=== PATIENT | female | born 1935 | race Caucasian/White ===

== ENCOUNTER 2017-02-10 02:33 | Emergency (ER) | payer MEDICARE ==
[~2017-02-10] VITALS: Ht 154.9 cm; Wt 80.7 kg
--- NOTE | ~2017-02-10 | EKG ---
[place], [place] ELECTROCARDIOGRAM REPORT NAME: SORAYA OLMEDO UNIT #: [id number] ROOM: DOCTOR: CAROLANN BOSS MD BIRTHDATE: [birth year] DOS: 02/10/2017 TIME: 0327 hours. FINDINGS: 1. Normal sinus rhythm with first-degree AV block. 2. 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 3. Abnormal EKG. CAROLANN BOSS MD CM:EKGRPT:ELECTROCARDIOGRAM REPORT 34 05 CAROLANN BOSS MD
[2017-02-10 02:33] VITALS: BP 199/87
[~2017-02-10 02:33] MED LIST: ALBUTEROL INH; ASPIRIN81 M1 PO; AVPAK AZITHROM250 M1 PO; BACTROBAN CREAM15 GM T; CALCIUM PO; CEPHALEXIN500 M1 PO; CIPRO500 MG PO; COZAAR25 MG PO; COZAAR50 M1 PO; CRESTOR10 MG PO; CYMBALTA20 MG PO; CYMBALTA30 MG PO; CYMBALTA60 MG PO; DELTASONE5 MG PO; DOC-Q-LACE100 MG PO; Eliquis PO; FENOFIBRATE160 MG PO; FERROUS SULFAT324 M2 PO; FLEXERIL10 MG PO; FLEXERIL5 MG PO; HYDROCODONE BIT1 T11 PO; JANUVIA100 MG PO; LASIX20 MG PO; LEVAQUIN250 M1 PO; LOPID600 MG PO; Lopressor25 MG PO; METFORMIN500 MG PO; MICRO-K 1010 MEQ PO; MIRALAX POWDER17 G1 PO; MUCINEX600 MG PO; NORVASC5 MG PO; NOVAPLUS V0.09 MG/Ac INH; OCUVITE1 TA1 PO; OXYGEN NAS; PERCOCET 325 MG1 TA2 PO; PRAVACHOL40 MG PO; PREDNISONE50 MG PO; PRESERVISION AR1 SGL PO; PRESERVISION1 SGL PO; PREVACID30 M1 PO; PRILOSEC20 MG PO; SYNTHROID,LEVO75 MCG PO; SYNTHROID0.05 MG PO; TORADOL10 MG PO; VENTOLIN 02.5 MG/3 M INH; VIBRAMYCIN100 MG PO; VITAMIN D32000 IU PO; Z BEC PO; ZESTRIL,PRINIVI10 MG PO; [UNRECOGNIZED DRUG - OTHER] PO
[2017-02-10 03:21] LABS: BASO % 0.7 % (0.0-1.0); EOS # 0.2 10*3/uL (0.0-0.4); EOS % 2.9 % (1.0-4.0); HEMATOCRIT 34.6 % (37.0-47.0); HEMOGLOBIN 11.8 g/dl (12.0-16.0); LYMPH # 2.2 10*3/uL (1.3-4.4); LYMPH % 37.3 % (27.0-41.0); MEAN CELL VOLUME 93.3 fl (81.0-99.0); MEAN CORPUSCULAR HGB 31.8 pg (27.0-31.0); MEAN CORPUSCULAR HGB CONC 34.1 g/dl (33.0-37.0); MEAN PLATELET VOLUME 10.9 fl (9.6-12.3); MONO # 0.4 10*3/uL (0.1-1.0); MONO % 7.3 % (3.0-9.0); NEUT # 3.1 10*3/uL (2.3-7.9); NEUT % 51.5 % (47.0-73.0); PLATELET COUNT AUTOMATED 132 10*3/uL (130-400); RED BLOOD COUNT 3.71 10*6/uL (4.10-5.10); RED CELL DISTRI WIDTH 13.2 % (0-14.5); WHITE BLOOD COUNT 5.9 10*3/uL (4.8-10.8)
[2017-02-10 03:37] LABS: ALBUMIN 3.6 gm/dl (3.1-4.5); ALKALINE PHOSPHATASE 43 U/L (45-117); BILIRUBIN, TOTAL 0.3 mg/dl (0.2-1.0); BUN 28 mg/dl (7-24); CARBON DIOXIDE 24 mmol/L (21-32); CHLORIDE 103 mmol/L (98-107); EST GLOM FILT AFRICAN AMERICAN 48 ml/min; POTASSIUM 4.5 mmol/L (3.5-5.1); SGOT/AST 26 IU/L (3-35); SGPT/ALT 24 U/L (12-78); SODIUM 142 mmol/L (136-145); TOTAL PROTEIN 7.2 gm/dL (6.4-8.2)
[2017-02-10 03:38] LABS: GLUCOSE 238 mg/dL (65-99); TROPONIN I < 0.015 ng/ml (<0.045)
[2017-02-10 04:38] LABS: BILIRUBIN NEGATIVE (NEGATIVE); BLOOD NEGATIVE (NEGATIVE); CLARITY SL CLOUDY (CLEAR); COLOR YELLOW (YELLOW); GLUCOSE NEGATIVE (NEGATIVE); KETONE TRACE (NEGATIVE); LEUKO ESTERASE TRACE (NEGATIVE); NITRITE NEGATIVE (NEGATIVE); PH 5.5 (5.0-9.0); PROTEIN NEGATIVE (NEGATIVE); SPECIFIC GRAVITY >= 1.030 (1.005-1.030); UROBILINOGEN 0.2 E.U./dl (0.2-1.0)
[2017-02-10 04:46] LABS: BACTERIA 2+; URINE REFLEX COMMENT YES (NO)
[2017-02-10] MEDS ORDERED: Orphenadrine C100 MG PO (06:34)
[2017-02-10 06:54] VITALS: BP 171/84
[2017-02-10] MEDS ORDERED: CYCLOBENZAPRINE10 MG PO (07:16)
== END 2017-02-10 06:41 | disposition home or self-care (01) ==
LOC: ED 02:33 → EDHOLD 05:38 → 5E 05:55 → ED 06:41
PROVIDERS: Emergency Medicine Emergency Medical Services
DX: M47.9 Spondylosis, unspecified (principal); J44.9 Chronic obstructive pulmonary disease, unspecified; E78.5 Hyperlipidemia, unspecified; E11.9 Type 2 diabetes mellitus without complications; I99.8 Other disorder of circulatory system; E03.9 Hypothyroidism, unspecified; I12.9 Hypertensive chronic kidney disease with stage 1 through stage 4 chronic kidney disease, or unspecified chronic kidney disease; N18.3 Chronic kidney disease, stage 3 (moderate); M81.0 Age-related osteoporosis without current pathological fracture; F32.9 Major depressive disorder, single episode, unspecified; Z79.82 Long term (current) use of aspirin; Z79.899 Other long term (current) drug therapy

== ENCOUNTER 2017-10-27 15:43 | Emergency (ER) | payer MEDICARE ==
[~2017-10-27] VITALS: Ht 157.4 cm; Wt 86.2 kg
[~2017-10-27 15:43] MED LIST changes: +CYCLOBENZAPRINE10 MG PO; +Orphenadrine C100 MG PO
[2017-10-27] MEDS ORDERED: ALPRAZOLAM0.25 M2 PO (15:57)
[2017-10-27] MEDS ORDERED: GLIPIZIDE XL5 M1 PO (15:57)
[2017-10-27 16:30] VITALS: BP 146/76
[2017-10-27] MEDS ORDERED: PREDNISONE10 MG PO (17:17)
[2017-10-27] MEDS ORDERED: LEVOFLOXACIN500 MG PO (17:17)
== END 2017-10-27 17:23 | disposition home or self-care (01) ==
LOC: ED 15:43
DX: J20.9 Acute bronchitis, unspecified (principal); J44.9 Chronic obstructive pulmonary disease, unspecified; Z79.899 Other long term (current) drug therapy; Z79.82 Long term (current) use of aspirin; Z90.710 Acquired absence of both cervix and uterus

== ENCOUNTER 2017-12-09 14:47 | Emergency (ER) | payer MEDICARE ==
[~2017-12-09] VITALS: Wt 85.3 kg
[~2017-12-09 14:47] MED LIST changes: +ALPRAZOLAM0.25 M2 PO; +GLIPIZIDE XL5 M1 PO; +LEVOFLOXACIN500 MG PO; +PREDNISONE10 MG PO
[2017-12-09] MEDS ORDERED: D3-20002000 UNIT PO (15:09)
[2017-12-09] MEDS ORDERED: ALBUTEROL2.5 MG/0.5 INH (15:09)
[2017-12-09] MEDS ORDERED: GLIPIZIDE ER5 MG PO (15:10)
[2017-12-09] MEDS ORDERED: COZAAR100 MG PO (15:10)
[2017-12-09] MEDS ORDERED: LEVOTHYROXINE125 MCG PO (15:10)
[2017-12-09] MEDS ORDERED: Lopressor25 MG PO (15:11)
[2017-12-09] MEDS ORDERED: PANTOPRAZOLE SO40 MG PO (15:11)
[2017-12-09] MEDS ORDERED: VITAMIN D22000 UNIT PO (15:12)
[2017-12-09 15:25] LABS: BASO # 0.1 10*3/uL (0.0-0.1); BASO % 0.8 % (0.0-1.0); EOS # 0.4 10*3/uL (0.0-0.4); EOS % 6.1 % (1.0-4.0); HEMATOCRIT 36.1 % (37.0-47.0); HEMOGLOBIN 12.4 g/dl (12.0-16.0); LYMPH # 2.1 10*3/uL (1.3-4.4); LYMPH % 33.7 % (27.0-41.0); MEAN CELL VOLUME 88.3 fl (81.0-99.0); MEAN CORPUSCULAR HGB 30.3 pg (27.0-31.0); MEAN CORPUSCULAR HGB CONC 34.3 g/dl (33.0-37.0); MEAN PLATELET VOLUME 10.7 fl (9.6-12.3); MONO # 0.4 10*3/uL (0.1-1.0); MONO % 6.5 % (3.0-9.0); NEUT # 3.2 10*3/uL (2.3-7.9); NEUT % 52.4 % (47.0-73.0); PLATELET COUNT AUTOMATED 128 10*3/uL (130-400); RED BLOOD COUNT 4.09 10*6/uL (4.10-5.10); RED CELL DISTRI WIDTH 13.8 % (0-14.5); WHITE BLOOD COUNT 6.1 10*3/uL (4.8-10.8)
[2017-12-09 15:33] LABS: ACT PARTIAL THROMBO TIME 23.4 SECONDS (20.8-31.5); INTERNATIONAL NORM RATIO 1.3 (2.0-3.5)
[2017-12-09 15:44] LABS: BUN 11 mg/dl (7-24); CHLORIDE 108 mmol/L (98-107); POTASSIUM 3.8 mmol/L (3.5-5.1); SODIUM 143 mmol/L (136-145)
[2017-12-09 15:49] LABS: TROPONIN I < 0.015 ng/ml (<0.045)
[2017-12-09 19:13] VITALS: BP 174/98
[2017-12-09] MEDS ORDERED: AVPAK AZITHROM250 M1 PO (19:20)
== END 2017-12-09 19:38 | disposition home or self-care (01) ==
LOC: ED 14:47
PROVIDERS: Emergency Medicine
DX: R06.2 Wheezing (principal); R06.02 Shortness of breath; I13.0 Hypertensive heart and chronic kidney disease with heart failure and stage 1 through stage 4 chronic kidney disease, or unspecified chronic kidney disease; E11.22 Type 2 diabetes mellitus with diabetic chronic kidney disease; N18.3 Chronic kidney disease, stage 3 (moderate); I50.9 Heart failure, unspecified; E78.5 Hyperlipidemia, unspecified; E03.9 Hypothyroidism, unspecified; M81.0 Age-related osteoporosis without current pathological fracture; Z79.82 Long term (current) use of aspirin; Z79.899 Other long term (current) drug therapy

== ENCOUNTER 2017-12-26 17:57 | Emergency (ER) | payer MEDICARE ==
[~2017-12-26] VITALS: Ht 154.9 cm; Wt 84.4 kg
[~2017-12-26 17:57] MED LIST changes: +ALBUTEROL2.5 MG/0.5 INH; +COZAAR100 MG PO; +D3-20002000 UNIT PO; +GLIPIZIDE ER5 MG PO; +LEVOTHYROXINE125 MCG PO; +PANTOPRAZOLE SO40 MG PO; +VITAMIN D22000 UNIT PO
[2017-12-26 19:24] VITALS: BP 169/85
== END 2017-12-26 19:26 | disposition home or self-care (01) ==
LOC: ED 17:57
DX: M62.830 Muscle spasm of back (principal); Z79.82 Long term (current) use of aspirin; Z79.899 Other long term (current) drug therapy

== ENCOUNTER → 2018-01-01 | Day surgery (SDC) | payer MEDICARE ==
[~2018-01-01] VITALS: Ht 152.4 cm; Wt 84.8 kg
--- NOTE | ~2018-01-01 | O ---
[place], [place] OPERATIVE NOTE NAME: SORAYA OLMEDO UNIT #: [id number] ROOM: DOCTOR: ANTHONY ACOSTA MD BIRTHDATE: [birth year] DOS: 01/01/2018 PREOPERATIVE DIAGNOSIS: Cataract, left eye. POSTOPERATIVE DIAGNOSIS: Cataract, left eye. OPERATION: Extracapsular cataract extraction by phacoemulsification with posterior chamber intraocular lens implantation, left eye. ANESTHESIA: Monitored standby. OPERATIVE FINDINGS AND PROCEDURE: 2% Xylocaine topical anesthetic gel was applied to the eye in the preop area. The patient was taken to the operating room and prepped and draped in the standard fashion for sterile intraocular surgery. A time out procedure was performed verifying correct patient, correct site and corrects lens with Neil Acosta M.D. The operating microscope was swung into position and the lid speculum was inserted. Using a Natalia paracentesis blade, a paracentesis was made through clear cornea. Viscoelastic was used to fill the anterior chamber. Using a metal keratome a 2.4 mm self-sealing clear corneal cataract incision was made temporally at the limbus. Using a pre-bent 25 gauge cystotome needle, a standard continuous curvilinear capsulorrhexis was performed. The anterior capsule was removed with forceps. The lens nucleus was hydrodissected and phacoemulsified in the posterior chamber. Cortical material was removed with the irrigation aspiration hand piece and the posterior capsule was then polished with a curet under irrigation. The posterior chamber and capsular bag were filled with viscoelastic. A posterior chamber intraocular lens manufactured by: [employer], Model #[id number] 26.0 diopters in strength were then inserted into the posterior chamber and within the capsular bag using the lens cartridge and injector system. Viscoelastic was removed using the irrigation aspiration handpiece. The anterior chamber was filled with balanced salt solution through the paracentesis. Both the paracentesis site and cataract incisions were hydrated with BSS and verified to be water-tight and self-sealing. Cefuroxime 1 mg/0.1 mL was injected into the anterior chamber through the paracentesis site. The incision checked to be water-tight using a Weck-Elizabeth sponge. The integrity of the cataract wound and ocular tension were checked. Lid speculum and drapes were removed. The patient was transferred from the operating room to the recovery room in satisfactory condition. [place], [place] OPERATIVE NOTE NAME: OPALSASKIASORAYA Shell UNIT #: [id number] ROOM: DOCTOR: ANTHONY ACOSTA MD BIRTHDATE: [birth year] ANTHONY ACOSTA MD CM:OPRECORD:OPERATIVE NOTE [id number] 1013 ANTHONY ACOSTA MD 01/01/18 1010 interface
[2018-01-01 07:43] VITALS: BP 188/96
[2018-01-01 08:35] VITALS: BP 156/77
[2018-01-01 08:50] VITALS: BP 170/72
[2018-01-01 09:03] VITALS: BP 163/84
== END | disposition home or self-care (01) ==
LOC: SDC 12-26 09:30
DX: E11.36 Type 2 diabetes mellitus with diabetic cataract (principal); J44.9 Chronic obstructive pulmonary disease, unspecified; I10 Essential (primary) hypertension; M81.0 Age-related osteoporosis without current pathological fracture; E78.00 Pure hypercholesterolemia, unspecified; M19.90 Unspecified osteoarthritis, unspecified site; Z86.14 Personal history of Methicillin resistant Staphylococcus aureus infection; Z90.710 Acquired absence of both cervix and uterus

== ENCOUNTER → 2018-01-22 | Day surgery (SDC) | payer MEDICARE ==
[~2018-01-22] VITALS: Ht 152.4 cm; Wt 84.8 kg
[~2018-01-22] MED LIST changes: +CYCLOBENZAPRINE5 M3 PO; +MELOXICAM7.5 MG PO
--- NOTE | ~2018-01-22 | O ---
[place], [place] OPERATIVE NOTE NAME: SORAYA OLMEDO UNIT #: [id number] ROOM: DOCTOR: ANTHONY ACOSTA MD BIRTHDATE: [birth year] DOS: 01/22/2018 PREOPERATIVE DIAGNOSIS: Cataract, right eye. POSTOPERATIVE DIAGNOSIS: Cataract, right eye. OPERATION: Extracapsular cataract extraction by phacoemulsification with posterior chamber intraocular lens implantation, right eye. ANESTHESIA: Monitored standby. OPERATIVE FINDINGS AND PROCEDURE: 2% Xylocaine topical anesthetic gel was applied to the eye in the preop area. The patient was taken to the operating room and prepped and draped in the standard fashion for sterile intraocular surgery. A time out procedure was performed verifying correct patient, correct site and corrects lens with Niel Acosta M.D. The operating microscope was swung into position and the lid speculum was inserted. Using a Natalia paracentesis blade, a paracentesis was made through clear cornea. Viscoelastic was used to fill the anterior chamber. Using a metal keratome a 2.4 mm self-sealing clear corneal cataract incision was made temporally at the limbus. Using a pre-bent 25 gauge cystotome needle, a standard continuous curvilinear capsulorrhexis was performed. The anterior capsule was removed with forceps. The lens nucleus was hydrodissected and phacoemulsified in the posterior chamber. Cortical material was removed with the irrigation aspiration hand piece and the posterior capsule was then polished with a curet under irrigation. The posterior chamber and capsular bag were filled with viscoelastic. A posterior chamber intraocular lens manufactured by: [employer]ul, Model #[id number], and 27.5 diopters in strength were then inserted into the posterior chamber and within the capsular bag using the lens cartridge and injector system. Viscoelastic was removed using the irrigation aspiration handpiece. The anterior chamber was filled with balanced salt solution through the paracentesis. Both the paracentesis site and cataract incisions were hydrated with BSS and verified to be water-tight and self-sealing. Cefuroxime 1 mg/0.1 mL was injected into the anterior chamber through the paracentesis site. The incision checked to be water-tight using a Weck-Elizabeth sponge. The integrity of the cataract wound and ocular tension were checked. Lid speculum and drapes were removed. The patient was transferred from the operating room to the recovery room in satisfactory condition. [place], [place] OPERATIVE NOTE NAME: SORAYA OLMEDO UNIT #: [id number] ROOM: DOCTOR: ANTHONY ACOSTA MD BIRTHDATE: [birth year] ANTHONY ACOSTA MD CM:OPRECORD:OPERATIVE NOTE 1015 1034 ANTHONY ACOSTA MD 01/22/18 1034 interface
[2018-01-22 09:30] VITALS: BP 165/87
[2018-01-22 10:13] VITALS: BP 153/80
[2018-01-22 10:28] VITALS: BP 167/80
[2018-01-22 10:45] VITALS: BP 164/66
== END | disposition home or self-care (01) ==
LOC: SDC 01-15 10:15
DX: E11.36 Type 2 diabetes mellitus with diabetic cataract (principal); J44.9 Chronic obstructive pulmonary disease, unspecified; I10 Essential (primary) hypertension; E07.89 Other specified disorders of thyroid; M81.0 Age-related osteoporosis without current pathological fracture; E78.00 Pure hypercholesterolemia, unspecified; M19.90 Unspecified osteoarthritis, unspecified site; Z90.710 Acquired absence of both cervix and uterus

== ENCOUNTER 2018-04-28 06:51 | Inpatient (IN) | payer MEDICARE ==
[2018-04-28] VITALS (7 sets, daily range): BP systolic 120–194; BP diastolic 53–99
[~2018-04-28] VITALS: Ht 154.9 cm; Wt 84.9 kg
--- NOTE | ~2018-04-28 | WRIGHTHP ---
[place], [place] PATIENT HISTORY AND PHYSICAL EXAM NAME: SORAYA OLMEDO UNIT #: [id number] ROOM: 402 DOCTOR: MATIAS MOYA MD BIRTHDATE: [birth year] DOS: 04/28/2018 HISTORY OF PRESENT ILLNESS: The patient is an 82-year-old female with a past medical history of: 1. Benign essential hypertension. 2. Type 2 diabetes mellitus. 3. Chronic obstructive pulmonary disease. 4. Congestive heart failure, chronic diastolic type. 5. Benign essential hypertension. 6. Hypothyroidism. 7. Chronic kidney disease stage 3. The patient presented to the Emergency Department at [facility] feeling dizzy, lightheaded and unwell and she was found to have systolic blood pressure of more than 200. The patient already had taken 1 dose of clonidine as an outpatient prescribed by her PCP, Dr. Sabrina Scanlon and her blood pressure returned to normal. The patient was admitted for hypertensive emergency and later on her blood pressure climbed to above 170 systolic. The patient's dizziness and lightheadedness has improved. She is starting to feel better and already anxious to go home. No complaints of chest pain, no shortness of breath, no GI or urinary symptoms. REVIEW OF SYSTEMS: RESPIRATORY: Some complains of shortness of breath in the ER. CARDIOVASCULAR: The patient denies any chest pains or palpitations. GASTROINTESTINAL: No nausea, vomiting, diarrhea or constipation. FAMILY HISTORY: Noncontributory. HOME MEDICATIONS: Clonidine, losartan, Protonix, levothyroxine, metoprolol, apixaban, Colace, glipizide. PHYSICAL EXAMINATION: GENERAL: Alert and oriented x 3. Obesity. HEENT AND NECK: Extraocular movements are intact. Sclerae are anicteric. Oral mucosa is moist and clean. No obvious facial weakness. Neck is supple without any lymphadenopathy. No thyromegaly. No JVD. No carotid arterial bruits. LUNGS: Clear to auscultation. No wheezing. No rhonchi. CARDIOVASCULAR SYSTEM: Heart rate is regular in rate and rhythm. S1 and S2 normally audible. No significant murmur or any other abnormal cardiac sounds. ABDOMEN: Soft, nontender. No obvious organomegaly. Bowel sounds are present. No obvious herniation. EXTREMITIES: Without significant cyanosis or edema. Warm to touch. CENTRAL NERVOUS SYSTEM: Alert and oriented x 3. Cranial nerves II-XII are intact. Speech is normal. The patient is able to move all extremities. Normal muscle strength. Deep tendon reflexes are equal on both sides. Plantars were downgoing. LABORATORY DATA: Cardiac enzymes are negative. Chest x-ray without acute [place], [place] PATIENT HISTORY AND PHYSICAL EXAM NAME: SORAYA OLMEDO UNIT #: [id number] ROOM: 402 DOCTOR: MATIAS MOYA MD BIRTHDATE: [birth year] abnormality. Normal CBC. IMPRESSION: 1. The patient with hypertensive emergency with elevated systolic blood pressures more than 200, has improved with addition of clonidine. I have increased the dose to 0.1 mg twice a day and blood pressure being monitored closely on a monitored bed. The patient is starting to feel better. 2. Type 2 diabetes mellitus. Blood sugars to be monitored and treated. Home medications including glyburide continued. 3. Chronic constipation. I will continue Colace. The patient is moving her bowels. 4. Benign essential hypertension, treated and controlled, the patient on metoprolol. 5. Gastroesophageal reflux disease and esophagitis, asymptomatic with Protonix and losartan. MATIAS MOYA MD CM:HISPHYS:PATIENT HISTORY AND PHYSICAL EXAMINATION 5 100 MATIAS MOYA MD 04/29/18 1003 interface
--- NOTE | ~2018-04-28 | DS ---
[place], [place] DISCHARGE SUMMARY NAME: SORAYA OLMEDO UNIT #: [id number] ROOM: 402 DOCTOR: MATIAS MOYA MD BIRTHDATE: [birth year] DOS: 04/30/2018 DISCHARGE DIAGNOSES: 1. Hypertensive emergency. 2. History of benign essential hypertension. 3. Severe generalized anxiety disorder. 4. Type 2 diabetes mellitus. No chronic kidney disease. 5. Hypothyroidism. 6. Gastroesophageal reflux disease and esophagitis. 7. History of mixed hyperlipidemia. 8. Macular degeneration. The patient is blind in the right eye. 9. Chronic obstructive pulmonary disease, chronic diastolic type congestive heart failure. HOSPITAL COURSE: The patient presented to the Emergency Department with complaints of dizziness. The patient's blood pressure was shooting above 200 and she was already treated with clonidine dose before coming to the ER. The patient's blood pressure had normalized to 136, but then again started climbing to above 170. The patient was admitted for hypertensive emergency and continued on clonidine once a day. Apparently clonidine was bringing down her blood pressure too much and she could not get clonidine every 12 hours, so the clonidine was discontinued and instead she was started on Norvasc 5 mg a day. Even with Norvasc, her blood pressure is going above 170, so I am increasing the dose to 10 mg a day and sending her back to her independent living facility at [facility] with a prescription and for her to follow up with Dr. Scanlon within a couple of days of discharge. 1. Type 2 diabetes mellitus with reasonably controlled blood sugars. 2. Chronic diastolic type congestive heart failure, compensated. 3. Hypothyroidism, replaced with thyroid supplements. 4. Severe generalized anxiety disorder, which may also be contributing to her occasional high blood pressures, treated with Xanax. There was some report of chest pains from the Emergency Department, but later on the patient completely denied having any chest pains. Cardiac enzymes were checked to be normal. CBC, serum electrolytes were all normal. Blood sugar was at 174. Cardiac enzymes were negative out of lab data. DISCHARGE MANAGEMENT: Amlodipine 10 mg a day, losartan 100 mg a day, Protonix 40 mg a day, levothyroxine 125 mcg daily, metoprolol 25 mg b.i.d., apixaban 5 mg b.i.d., glipizide XL 5 mg b.i.d. FOLLOWUP: Follow up with Dr. Scanlon within a couple of days of discharge. [place], [place] DISCHARGE SUMMARY NAME: SORAYA OLMEDO UNIT #: [id number] ROOM: [facility] DOCTOR: MATIAS MOYA MD BIRTHDATE: [birth year] MATIAS MOYA MD CM:DISCHARG [id number] [id number] MATIAS MOYA MD 04/30/18 1510 interface
[2018-04-28] MEDS ORDERED: CLONIDINE HCL0.1 MG PO (07:33)
[2018-04-28 07:34] LABS: BASO % 0.6 % (0.0-1.0); EOS # 0.1 10*3/uL (0.0-0.4); EOS % 1.8 % (1.0-4.0); HEMATOCRIT 37.8 % (37.0-47.0); HEMOGLOBIN 12.7 g/dl (12.0-16.0); LYMPH # 1.6 10*3/uL (1.3-4.4); LYMPH % 33.1 % (27.0-41.0); MEAN CELL VOLUME 92.9 fl (81.0-99.0); MEAN CORPUSCULAR HGB 31.2 pg (27.0-31.0); MEAN CORPUSCULAR HGB CONC 33.6 g/dl (33.0-37.0); MEAN PLATELET VOLUME 9.9 fl (9.6-12.3); MONO # 0.4 10*3/uL (0.1-1.0); MONO % 7.9 % (3.0-9.0); NEUT # 2.8 10*3/uL (2.3-7.9); NEUT % 56.4 % (47.0-73.0); PLATELET COUNT AUTOMATED 128 10*3/uL (130-400); RED BLOOD COUNT 4.07 10*6/uL (4.10-5.10); WHITE BLOOD COUNT 4.9 10*3/uL (4.8-10.8)
[2018-04-28] MEDS ORDERED: [UNRECOGNIZED DRUG - REMARK] (07:34)
[2018-04-28 07:44] LABS: ACT PARTIAL THROMBO TIME 22.9 SECONDS (20.8-31.5); INTERNATIONAL NORM RATIO 1.2 (2.0-3.5)
[2018-04-28] MEDS ORDERED: OXYGEN NAS (07:44)
[2018-04-28 07:50] LABS: ALBUMIN 3.6 gm/dl (3.1-4.5); ALKALINE PHOSPHATASE 48 U/L (45-117); BUN 21 mg/dl (7-24); CHLORIDE 109 mmol/L (98-107); CREATININE 1.01 mg/dL (0.55-1.02); LIPASE 179 U/L (73-393); POTASSIUM 4.8 mmol/L (3.5-5.1); SGOT/AST 13 IU/L (3-35); SGPT/ALT 24 U/L (12-78); SODIUM 143 mmol/L (136-145); TOTAL PROTEIN 7.2 gm/dL (6.4-8.2); TROPONIN I < 0.015 ng/ml (<0.045)
[2018-04-28] MEDS ORDERED: ELIQUIS5 M1 PO (10:22)
[2018-04-28] MEDS ORDERED: ACULAR 0.5%3 ML OPH (11:43)
[2018-04-28] MEDS ORDERED: PRESERVISION A1 EAC1 PO (15:32)
[2018-04-29] VITALS (8 sets, daily range): BP systolic 102–160; BP diastolic 49–86
[2018-04-30] VITALS: BP 140/74
[2018-04-30 05:30] VITALS: BP 120/80
[2018-04-30 08:00] VITALS: BP 174/68
[2018-04-30] MEDS ORDERED: NORVASC10 MG PO (10:27)
== END 2018-04-30 12:45 | disposition home or self-care (01) | DRG 305 ==
LOC: ED 06:51 → 4E 08:46 → EDHOLD 08:46 → 4E 08:52
PROVIDERS: Emergency Medicine
DX: I16.1 Hypertensive emergency (principal); I50.32 Chronic diastolic (congestive) heart failure; E11.9 Type 2 diabetes mellitus without complications; J44.9 Chronic obstructive pulmonary disease, unspecified; K21.9 Gastro-esophageal reflux disease without esophagitis; F41.1 Generalized anxiety disorder; E03.9 Hypothyroidism, unspecified; K21.0 Gastro-esophageal reflux disease with esophagitis; E78.2 Mixed hyperlipidemia; H35.30 Unspecified macular degeneration; H54.61 Unqualified visual loss, right eye, normal vision left eye; K59.09 Other constipation; I11.0 Hypertensive heart disease with heart failure; Z79.899 Other long term (current) drug therapy

== ENCOUNTER 2018-07-24 01:17 | Emergency (ER) | payer MEDICARE ==
[~2018-07-24] VITALS: Ht 154.9 cm; Wt 84.4 kg
[~2018-07-24 01:17] MED LIST changes: +ACULAR 0.5%3 ML OPH; +CLONIDINE HCL0.1 MG PO; +ELIQUIS5 M1 PO; +NORVASC10 MG PO; +PRESERVISION A1 EAC1 PO; +[UNRECOGNIZED DRUG - REMARK]
[2018-07-24 01:31] VITALS: BP 125/45
[2018-07-24] MEDS ORDERED: ULTRAM50 MG PO (03:11)
[2018-07-28] MEDS ORDERED: LASIX40 MG PO (16:13)
[2018-07-28] MEDS ORDERED: 'CLONIDINE0.1 MG PO (16:13)
[2018-07-28] MEDS ORDERED: XANAX0.25 MG PO (19:59)
[2018-07-28] MEDS ORDERED: POTASSIUM CHLOR8 ME1 PO (19:59)
[2018-07-28] MEDS ORDERED: ZANTAC 150150 MG PO (20:00)
[2018-07-28] MEDS ORDERED: CLARITIN10 MG PO (20:01)
[2018-07-31] MEDS ORDERED: AUGMENTIN 875875 MG PO (08:37)
== END 2018-07-24 03:30 | disposition home or self-care (01) ==
LOC: ED 01:17
DX: S40.011A Contusion of right shoulder, initial encounter (principal); M75.01 Adhesive capsulitis of right shoulder; I13.0 Hypertensive heart and chronic kidney disease with heart failure and stage 1 through stage 4 chronic kidney disease, or unspecified chronic kidney disease; E11.22 Type 2 diabetes mellitus with diabetic chronic kidney disease; N18.3 Chronic kidney disease, stage 3 (moderate); I50.9 Heart failure, unspecified; J44.9 Chronic obstructive pulmonary disease, unspecified; E78.5 Hyperlipidemia, unspecified; E03.9 Hypothyroidism, unspecified; Z79.899 Other long term (current) drug therapy; Z90.710 Acquired absence of both cervix and uterus; Z98.890 Other specified postprocedural states; W06.XXXA Fall from bed, initial encounter; Y93.89 Activity, other specified; Y92.89 Other specified places as the place of occurrence of the external cause; Y99.9 Unspecified external cause status

== ENCOUNTER 2018-09-03 13:58 | Emergency (ER) | payer MEDICARE ==
[~2018-09-03] VITALS: Ht 154.9 cm; Wt 81.6 kg
[~2018-09-03 13:58] MED LIST changes: +'CLONIDINE0.1 MG PO; +AUGMENTIN 875875 MG PO; +CLARITIN10 MG PO; +LASIX40 MG PO; +POTASSIUM CHLOR8 ME1 PO; +ULTRAM50 MG PO; +XANAX0.25 MG PO; +ZANTAC 150150 MG PO
[2018-09-03 14:00] VITALS: BP 130/60
[2018-09-03 14:33] LABS: BASO % 0.2 % (0.0-1.0); HEMATOCRIT 38.7 % (37.0-47.0); HEMOGLOBIN 12.8 g/dl (12.0-16.0); LYMPH # 1.4 10*3/uL (1.3-4.4); LYMPH % 15.3 % (27.0-41.0); MEAN CELL VOLUME 89.8 fl (81.0-99.0); MEAN CORPUSCULAR HGB 29.7 pg (27.0-31.0); MEAN CORPUSCULAR HGB CONC 33.1 g/dl (33.0-37.0); MEAN PLATELET VOLUME 10.2 fl (9.6-12.3); MONO # 0.5 10*3/uL (0.1-1.0); MONO % 5.9 % (3.0-9.0); NEUT # 7.1 10*3/uL (2.3-7.9); NEUT % 78.2 % (47.0-73.0); PLATELET COUNT AUTOMATED 144 10*3/uL (130-400); RED BLOOD COUNT 4.31 10*6/uL (4.10-5.10); RED CELL DISTRI WIDTH 13.4 % (0-14.5)
[2018-09-03 14:40] LABS: INTERNATIONAL NORM RATIO 1.5 (2.0-3.5)
[2018-09-03 14:47] LABS: ALBUMIN 3.9 gm/dl (3.1-4.5); CREATININE 1.18 mg/dL (0.55-1.02); POTASSIUM 4.4 mmol/L (3.5-5.1); TOTAL PROTEIN 8.1 gm/dL (6.4-8.2)
[2018-09-03] MEDS ORDERED: PREDNISONE20 M1 PO (15:42)
== END 2018-09-03 15:50 | disposition home or self-care (01) ==
LOC: ED 13:58
PROVIDERS: Physician Assistant
DX: M79.671 Pain in right foot (principal); I50.9 Heart failure, unspecified; E11.9 Type 2 diabetes mellitus without complications; G89.29 Other chronic pain; Z90.710 Acquired absence of both cervix and uterus; Z79.899 Other long term (current) drug therapy; Z79.2 Long term (current) use of antibiotics; Z79.84 Long term (current) use of oral hypoglycemic drugs

== ENCOUNTER 2018-09-05 23:27 | Inpatient (IN) | payer MEDICARE ==
[~2018-09-05] VITALS: Ht 154.9 cm; Wt 79.5 kg
--- NOTE | ~2018-09-05 | PR ---
[place], [place] PROGRESS NOTE NAME: SORAYA OLMEDO UNIT #: [id number] ROOM: 419 DOCTOR: ML GROVE MD BIRTHDATE: [birth year] DOS: 09/09/2018 SUBJECTIVE: The patient is sitting up in a chair, less confused, looks much better than yesterday. Does complain of pain, but not as much as yesterday. OBJECTIVE: VITAL SIGNS: Graphic trend shows blood pressure 142/67, pulse of 80, respirations 18, temperature 97.8. LUNGS: Diminished breath sounds. No wheezes, rales or rhonchi heard. HEART: Irregular heart rate in the 70s. ABDOMEN: Obese, soft. EXTREMITIES: Still pretty red, swollen and tense; question of abscess is being raised. Ultrasound of the arteries was negative. Ultrasound of the lower legs was mostly showing arthrosclerotic changes, no actual stenosis was seen. Electrocardiogram shows atrial fibrillation. Blood culture shows MRSA. Glucose was pretty high at 633 and then 478. Slow IV hydration was started for that. ASSESSMENT AND PLAN: 1. The patient who presents with severe pain and swelling of the right foot. Initial thought was that the patient had gouty arthropathy and placed on colchicine and allopurinol for hyperuricemia, but the patient did not improve at all. In fact, MRI and triphasic bone scan was ordered on admission, which was done yesterday. I do not have the results still. 2. Positive blood cultures, bacteremia of MRSA. The patient is placed on IV vancomycin. Infectious Disease was consulted. 3. Type 2 diabetes mellitus, non-insulin dependent. Blood sugars were pretty low in the 60s, so the medicines were discontinued. Blood sugar has gone up to [address] Leonardo started on a slow IV hydration. It has gone down to 438. We will start her back on glipizide and a low dose of coverage scale will be added. 4. Chronic atrial fibrillation, controlled on low and long-term use of anticoagulants. 5. Chronic kidney disease, stable with some improvement in the kidney functions. 6. Metabolic encephalopathy, seems to be resolving. CT of the head was negative. 7. History of epidural abscess in 2007 following vertebroplasty and MSSA bacteremia at that time. The patient was on 6 weeks of antibiotics in 11/2007, reviewed the records. The patient is on vancomycin again at this time. was scheduled to rule out SBE but unfortunately, the machine did not work, so we will do a regular echocardiogram. Discussed with Dr. Loo already. Also MRI of the lumbar spine is ordered because of her previous history of epidural abscess. [place], [place] PROGRESS NOTE NAME: SORAYA OLMEDO UNIT #: [id number] ROOM: 419 DOCTOR: ML GROVE MD BIRTHDATE: [birth year] ML GROVE MD CM:GABRIELLA 0833 [id number] ML GROVE MD 09/09/18 1147 interface
--- NOTE | ~2018-09-05 | PR ---
[place], [place] PROGRESS NOTE NAME: SORAYA OLMEDO UNIT #: [id number] ROOM: 419 DOCTOR: ML GROVE MD BIRTHDATE: [birth year] DOS: 09/17/2018 SUBJECTIVE: The patient is doing fine without any complaints. Dressings were removed. The wound looks clean and there was no evidence of any ongoing drainage. OBJECTIVE: VITAL SIGNS: Graphic trend shows a pressure of 127/57, pulse of 76, respirations 20, temperature 98.3. LUNGS: Clear. HEART: Irregular. ABDOMEN: Obese, soft. EXTREMITIES: Without any edema. A bone biopsy did show evidence of osteomyelitis. ASSESSMENT AND PLAN: 1. Osteomyelitis with abscess of the right foot, status post drainage. The wound looks clean. The patient to go to rehab center today for continued IV antibiotics for 6 weeks. 2. Adult failure to thrive. We will start physical therapy once the patient gets to the residential. 3. Methicillin-resistant Staphylococcus aureus sepsis with the wound infection also showing MRSA. Continue Rocephin and vancomycin for 6 weeks. ML GROVE MD CM:PNTRANS 0838 ML GROVE MD 09/17/18 1648 interface
--- NOTE | ~2018-09-05 | PR ---
[place], [place] PROGRESS NOTE NAME: SORAYA OLMEDO UNIT #: [id number] ROOM: 419 DOCTOR: MATIAS MOYA MD BIRTHDATE: [birth year] DOS: 09/11/2018 SUBJECTIVE: The patient without new complaints. OBJECTIVE: GENERAL APPEARANCE: The patient is alert and oriented x 3, in no visible distress. VITAL SIGNS: Blood pressure 120/61, heart rate 86 beats per minute, breathing 18 times per minute, temperature 98.4 degrees Fahrenheit. HEENT AND NECK: Exam within normal limits. CARDIOVASCULAR SYSTEM: Heart rate is regular in rate and rhythm. S1 and S2 normally audible. LUNGS: Clear to auscultation. ABDOMEN: Soft, nontender. No obvious organomegaly. Bowel sounds are present. Obesity. EXTREMITIES: Without significant cyanosis or edema. Right foot abscess infection, status post surgery. IMPRESSION: 1. Right foot abscess, status post drainage and surgery by Dr. Moran. Undergoing IV vancomycin and ceftriaxone treatment. Bone biopsy results are pending. 2. Methicillin-resistant Staphylococcus aureus bacteremia. The patient remains on IV vancomycin. Case discussed with Dr. Tdod today. 3. Type 2 diabetes mellitus. Blood sugars have been monitored and treated. 4. Adult failure to thrive. The patient is waiting to go to rehab for IV antibiotics and may require placement. 5. Chronic atrial fibrillation. The patient is on long-term anticoagulation. 6. Advanced disability. The patient is working with physical therapy. 7. Obesity. The patient is working with Dietary. MATIAS MOYA MD CM:PNTRANS [phone] MATIAS MOYA MD 09/11/181844 interface
--- NOTE | ~2018-09-05 | WRIGHTHP ---
[place], [place] PATIENT HISTORY AND PHYSICAL EXAM NAME: SORAYA OLMEDO UNIT #: [id number] ROOM: 419 DOCTOR: ALEX VALLE DPM BIRTHDATE: [birth year] DOS: 09/10/2018 LOWER EXTREMITY PHYSICAL EXAMINATION: VASCULAR: Appear to be intact palpable pulses. Very difficult to find due to the fact that the patient has significant amount of edema on the dorsum of her right foot and extending medially as well as laterally. There is significant amount of edema secondary to abscess, cellulitis. NEUROLOGICAL: She has pain, but there appears to be decreased epicritic sensation to right lower extremity. MUSCULOSKELETAL: Fluctuant area on dorsal lateral aspect of right ankle, foot. ORTHOPEDIC: ____ consistent with probable abscess, possible osteomyelitis of the right. ALEX VALLE DPM CM:HISPHYS:PATIENT HISTORY AND PHYSICAL EXAMINATION 1305 1439 ALEX VALLE DPM 09/17/18 2043 interface
--- NOTE | ~2018-09-05 | PR ---
[place], [place] PROGRESS NOTE NAME: SORAYA OLMEDO UNIT #: [id number] ROOM: 419 DOCTOR: MATIAS MOYA MD BIRTHDATE: [birth year] DOS: 09/14/2018 SUBJECTIVE: The patient is feeling about the same, foot is feeling better. OBJECTIVE: GENERAL APPEARANCE: The patient is alert and oriented x 3, in no visible distress. VITAL SIGNS: Blood pressure 114/87, afebrile, heart rate of 70 beats per minute, breathing normally. HEENT AND NECK: Exam within normal limits. CARDIOVASCULAR SYSTEM: Heart rate is regular in rate and rhythm. S1 and S2 normally audible. LUNGS: Clear to auscultation. ABDOMEN: Soft, nontender. No obvious organomegaly. Bowel sounds are present. EXTREMITIES: Without significant cyanosis or edema. IMPRESSION: 1. The patient has foot abscess and cellulitis, status post incision and drainage and wound VAC placement. Bone biopsies are still pending. We will continue vancomycin and ceftriaxone. Infectious Disease specialists are following. 2. Type 2 diabetes mellitus. Blood sugars are being monitored and treated. 3. Centrilobular emphysema, being followed, no increase in shortness of breath. 4. Type 2 diabetes mellitus. Blood sugars are being monitored and controlled. 5. Hypothyroidism, replaced with levothyroxine. 6. POLLEN ALLERGIES, treated and controlled with loratadine. 7. Chronic gouty arthritis, asymptomatic. The patient treated with allopurinol. 8. Ambulatory dysfunction, advanced disability and adult failure to thrive. The patient working with physical therapy and waiting for transfer to rehab facility. 9. Chronic atrial fibrillation with controlled heart rates. The patient anticoagulated with apixaban. [place], [place] PROGRESS NOTE NAME: SORAYA OLMEDO UNIT #: [id number] ROOM: 419 DOCTOR: MATIAS MOYA MD BIRTHDATE: [birth year] MATIAS MOYA MD CM:PNTRANS 50 13 MATIAS MOYA MD 09/14/18 2314 interface
--- NOTE | ~2018-09-05 | EKG ---
[place], [place] ELECTROCARDIOGRAM REPORT NAME: SORAYA OLMEDO UNIT #: [id number] ROOM: 419 DOCTOR: EPIPHANY DRAFT REPORT BIRTHDATE: [birth year] [facility] Test Date: 2018-09-06 Test Time: 00:42:33 Pat Name: SORAYA OLMEDO Department: Room: 419 Gender: F Railroad Mechanic: Dariel Ferrera : 1935 Requested By: BRIAN POTTER Order Number: [id number] Reading MD: Beverley Ramirez MD Measurements Intervals [place] Rate: 78 P: [place]: QRS: -35 QRSD: 140 T: 7 QT: 410 QTc: 468 Interpretive Statements Atrial fibrillation Right bundle branch block No previous ECG available for comparison Electronically Signed On 09-08-2018 7:24:34 PST by Beverley Ramirez MD CM:EKGRPT:ELECTROCARDIOGRAM REPORT 0042 0724 BRIAN POTTER EPIPHANY DRAFT REPORT RBIAN POTTER
--- NOTE | ~2018-09-05 | PR ---
[place], [place] PROGRESS NOTE NAME: SORAYA OLMEDO UNIT #: [id number] ROOM: 419 DOCTOR: ML GROVE MD BIRTHDATE: [birth year] DOS: 09/15/2018 SUBJECTIVE: The patient is doing better. Pain and swelling is improved after the abscess drainage and wound VAC. Her mind seems to be a lot more clearer. OBJECTIVE: VITAL SIGNS: Blood pressure 128/46, pulse of 70, respirations 18, temperature 98.8. LUNGS: Clear. HEART: Irregular. ABDOMEN: Obese. EXTREMITIES: Without any edema on the left, right is heavily bandaged. LABORATORY DATA: This morning no labs available. ASSESSMENT AND PLAN: 1. The patient who has MRSA bacteremia and sepsis from abscess of the right foot, status post incision and drainage. The patient is on IV vancomycin. We will check routine labs today. 2. Diabetes mellitus. Blood sugars controlled on the current dose of medications. 3. Chronic atrial fibrillation, on long-term use of anticoagulants to be continued. 4. Adult failure to thrive, will require PT, OT once she gets to the rehab suite. ML GROVE MD CM:PNTRANS [phone] ML GROVE MD 09/28/18 1210 interface
--- NOTE | ~2018-09-05 | PR ---
[place], [place] PROGRESS NOTE NAME: SORAYA OLMEDO UNIT #: [id number] ROOM: 419 DOCTOR: LM GROVE MD BIRTHDATE: [birth year] DOS: SUBJECTIVE: The patient had a low-grade fever of 100.2 yesterday. She also developed bacteremia with gram-positive cocci in 3 of the blood cultures drawn in the ER. OBJECTIVE: VITAL SIGNS: Blood pressure is 110/62, pulse of 71, respirations 20, temperature 98.2. LUNGS: Clear. HEART: Regular. ABDOMEN: Obese, soft. EXTREMITIES: Still pretty swollen right foot. It is tender. LABORATORY DATA: WBC count has normalized to 9.4. Blood culture showed gram-positive cocci in clusters, identification is not available. BMP: Glucose 137, BUN 25, creatinine 1.16, GFR 45. ASSESSMENT AND PLAN: 1. Right lower leg cellulitis, on IV antibiotics bacteremia noted, IV vancomycin added. We will wait for the repeat cultures to come back to readjust antibiotics. 2. Gouty arthropathy, on allopurinol and colchicine, which will both be continued. 3. Adult failure to thrive. We will need a short-term placement for rehabilitation. Social Service will be consulted. 4. Type 2 diabetes mellitus, diet controlled now. She is not on any oral antidiabetics. 5. Chronic kidney disease. Continue avoiding nephrotoxic meds. ML GROVE MD CM:PNTRANS [phone] ML GROVE MD 09/07/18 1031 interface
--- NOTE | ~2018-09-05 | CON ---
[place], [place] REPORT OF CONSULTATION NAME: SORAYA OLMEDO UNIT #: [id number] ROOM: 419 DOCTOR: LAURITA BUNCH DPM BIRTHDATE: [birth year] DOS: 09/06/2018 SUBJECTIVE: The patient was seen, is an 82-year-old female with chief complaint of pain to the right foot. The patient states her foot is improving at this time. The patient is well known to our practice. He has had history of gout attacks previously. ALLERGIES: No known allergies. FAMILY HISTORY: History of diabetes, ND. SOCIAL HISTORY: Denies alcohol, illicit drug use or smoking. PAST SURGICAL HISTORY: Hysterectomy, wrist, spinal surgery, abscess, left CAT, colonoscopy, cataracts. PAST MEDICAL HISTORY: CHF; contusion, right shoulder, frozen shoulder; history of fracture, right shoulder; acute bronchitis; acute URI; altered mental status; acute renal failure with tubular necrosis; CHF; chronic kidney disease stage 3; chronic compression fractures; COPD chronic; DJD of the spine; chronic depression; type 2 diabetes; hyperbilirubinemia; hyperglycemia; hyperlipidemia; hypertension; previous emergency hyponatremia; chronic hypothyroid; intractable back pain; gout; macular degeneration; metabolic encephalopathy; muscle spasm, back; chronic osteoporosis; history of UTI; vitamin B12 and vitamin D deficiencies. PHYSICAL EXAMINATION: LOWER EXTREMITY EXAMINATION: There is mild edema to the right forefoot. Mild pain upon direct palpation. LABORATORY DATA AND IMAGING: The patient's uric acid was 10.2 on 09/06/2018. CT of the foot revealed focal nonspecific soft tissue edema on the plantar surface of the MPJs, which can be observed with capsulitis. No organized fluid abscess, first MPJ degenerative arthritis. Clinically, there are no signs of abscess, no fluctuance, no signs of foreign body or open wound. ASSESSMENT: Acute gout, right foot with secondary edema, mild cellulitis. PLAN: Evaluation and management. Continue current medical management as the patient is feeling improvement today compared to yesterday. We will see the patient again tomorrow for followup. [place], [place] REPORT OF CONSULTATION NAME: SORAYA OLMEDO UNIT #: [id number] ROOM: 419 DOCTOR: LAURITA BUNCH DPM BIRTHDATE: [birth year] LAURITA BUNCH DPM CM:CONSTR:REPORT OF CONSULTATION 1038 09/06/18 1316 interface
--- NOTE | ~2018-09-05 | PR ---
[place], [place] PROGRESS NOTE NAME: SORAYA OLMEDO UNIT #: [id number] ROOM: 419 DOCTOR: JESE SERRANOJANUARY BIRTHDATE: [birth year] DOS: 09/14/2018 SUBJECTIVE: The patient is being followed for right foot infection with Staphylococcus aureus bacteremia as well as from her operative cultures from her foot. Her bacteremia was with MRSA on the . Repeat blood cultures from the remained sterile. Abscess cultures also grew MRSA from the . Her bone cultures grew MRSA as well. She likely has an osteomyelitis. She is status post surgical debridement. She is alert and oriented, fair appetite, tolerating antibiotics. Denies fever, chills, nausea, vomiting or diarrhea. No rash or itch. No cough or shortness of breath. No fevers. Further review of systems is unremarkable. LABORATORY DATA: Vancomycin trough 21.7. CURRENT MEDICATIONS: Vancomycin, hydrocodone, Glucotrol, Tylenol, Colace, potassium, multivitamin, Claritin, Lasix, vitamin D, Os-Pranav, Eliquis, Zyloprim, Protonix, and Synthroid. PHYSICAL EXAMINATION: VITAL SIGNS: Temperature 98.5, pulse 67, respirations 18, BP 114/87. GENERAL: An 82-year-old female, in no acute distress. HEAD, EYES, EARS, NOSE AND THROAT: Normocephalic, No thrush. LUNGS: Clear to auscultation bilaterally. Respirations even and unlabored. HEART: Regular rhythm. No murmur appreciated. ABDOMEN: Soft, nondistended. EXTREMITIES: No edema. Right foot with bulky dressing and wound VAC in place. SKIN: Warm, dry, free of rashes. ASSESSMENT: Right foot abscess with probable osteomyelitis given her positive bone cultures. Pathology is pending. She also had methicillin-resistant Staphylococcus aureus bacteremia. PLAN: Continue on IV vancomycin and Rocephin. Rocephin is being given to high vancomycin YAN. We will resume the Rocephin as it has dropped off today, continue for a minimum of 4 weeks. JANUARY MAGGIE SAWANT [place], [place] PROGRESS NOTE NAME: SORAYA OLMEDO UNIT #: [id number] ROOM: 419 DOCTOR: JESE SERRANO,JANUARY BIRTHDATE: [birth year] Liliam Todd MD CM:GABRIELLA [id number] JANUARY JESE SERRANO 09/15/18 0848 interface
--- NOTE | ~2018-09-05 | PR ---
[place], [place] PROGRESS NOTE NAME: SORAYA OLMEDO UNIT #: [id number] ROOM: 419 DOCTOR: JESE SERRANOJANUARY BIRTHDATE: [birth year] DOS: 09/13/2018 SUBJECTIVE: The patient is a pleasant 82-year-old female who is being followed for right foot infection with possible osteomyelitis. She also had an MRSA bacteremia. She remains on IV vancomycin as well as Rocephin. Her cultures from blood grew MRSA on 09/06. Repeat blood cultures from the were sterile. 09/10 OR cultures grew MRSA. Anaerobic culture is pending. She is alert and oriented, tolerating the antibiotics. Denies fevers, chills, nausea, vomiting or diarrhea. No rash or itch. Some discomfort in the right foot. CURRENT MEDICATIONS: Include [place], vancomycin, Glucotrol, Tylenol, Dilaudid, Rocephin, Colace, Xanax, Zofran, Slow-K, multivitamin, Claritin, Lasix, vitamin D, Os-Pranav, Eliquis, Zyloprim, Protonix, and Synthroid. LABORATORY DATA: BUN 8, creatinine 0.73. Vancomycin trough 23.9. VITAL SIGNS: Temperature 98.0, pulse 77, respirations 20, BP 112/64. PHYSICAL EXAMINATION: GENERAL: An 82-year-old female, in no acute distress. HEENT: Normocephalic, no thrush. LUNGS: Clear to auscultation bilaterally. Respirations even and unlabored. HEART: Irregular rhythm. No murmur appreciated. ABDOMEN: Soft, nontender. EXTREMITIES: No edema. Right foot dressed with a wound VAC. SKIN: Warm, dry, free of rashes, has multiple Hep-Locks in place with no phlebitis. ASSESSMENT: Right foot abscess, deep foot infection with possible osteomyelitis, status post debridement. Cultures from the foot grew methicillin resistant Staphylococcus aureus. She also had methicillin resistant Staphylococcus aureus bacteremia. PLAN: Continue on IV vancomycin and Rocephin. Rocephin is being given due to the high vancomycin YAN. Continue antibiotics for a minimum of 4 weeks. LYN SAWANT CNP [place], [place] PROGRESS NOTE NAME: SORAYA OLMEDO UNIT #: [id number] ROOM: 419 DOCTOR: JESE SERRANO BIRTHDATE: [birth year] Liliam Todd MD CM:PNKANDI [id number] [phone] JESE SERRANO 09/13/181831 interface
--- NOTE | ~2018-09-05 | PR ---
[place], [place] PROGRESS NOTE NAME: SORAYA OLMEDO UNIT #: [id number] ROOM: 419 DOCTOR: MATIAS MOYA MD BIRTHDATE: [birth year] DOS: 09/13/2018 SUBJECTIVE: The patient continues to feel better. She is comfortable, but not ambulating. Her right foot after surgery is in a dressing and on the wound VAC. PHYSICAL EXAMINATION: VITAL SIGNS: Blood pressure 121/60, heart rate 73 beats per minute, breathing ____ degrees Fahrenheit. GENERAL APPEARANCE: The patient is alert and oriented x 3, in no visible distress. HEENT AND NECK: Exam within normal limits. CARDIOVASCULAR SYSTEM: Heart rate is regular in rate and rhythm. S1 and S2 normally audible. LUNGS: Clear to auscultation. ABDOMEN: Soft, nontender. No obvious organomegaly. Bowel sounds are present. EXTREMITIES: Right foot wound and surgery. IMPRESSION AND PLAN: The patient with right foot abscess, status post drainage by Dr. Cruz and wound vacuum assisted closure in place. Wound culture results are still pending. The patient is growing methicillin resistant Staphylococcus aureus from wound and blood cultures, being treated with IV vancomycin and the patient remains on ceftriaxone. 1. Type 2 diabetes mellitus. Blood sugars being monitored and treated. 2. Chronic atrial fibrillation. The patient is on ____ with apixaban, which has been continued. 3. Hypothyroidism, treated with levothyroxine. 4. Pollen allergies, treated and controlled with loratadine. 5. Chronic gouty arthritis, asymptomatic. The patient remains on allopurinol. 6. Ambulatory dysfunction and advanced disability. The patient is working with physical therapy and waiting to go to rehab facility. MATIAS MOYA MD CM:PNTRANS [phone] MATIAS MOYA MD 09/14/18 1356 interface
--- NOTE | ~2018-09-05 | PR ---
[place], [place] PROGRESS NOTE NAME: SORAYA OLMEDO UNIT #: [id number] ROOM: 419 DOCTOR: ML GROVE MD BIRTHDATE: [birth year] DOS: 09/10/2018 SUBJECTIVE: The patient is quite anxious and confused. OBJECTIVE: VITAL SIGNS: Pressure is 102/55, pulse of 87, respirations 18, temperature 98.9. LUNGS: Clear. HEART: Regular. ABDOMEN: Obese, soft, nontender. EXTREMITIES: Without any edema on the left. The right foot is still pretty swollen, red and tender to touch. ASSESSMENT AND PLAN: 1. Abscess, right foot for surgery today, Dr. Olguin is planned to do it. 2. Metabolic encephalopathy, possibly from sepsis. The patient to receive some mild antianxiety medications this morning. 3. History of methicillin-resistant Staphylococcus aureus bacteremia, on IV vancomycin. Discussed with Dr. Todd about a transesophageal echocardiogram. 4. Osteomyelitis, possible of the fifth toe as per the triphasic bone scan. 5. Type 2 diabetes mellitus. This morning blood sugar has not been checked yet. Last few numbers were 298, 389, 286, 266, 267. The patient is on coverage scale and glipizide. 6. Adult failure to thrive, may require placement for IV antibiotics. The patient is stable enough to go anywhere. 7. Benign hypertension, controlled. 8. Chronic atrial fibrillation, on long-term use of anticoagulants, which will be on hold for the pending procedure. We will restart after the procedure. ML GROVE MD CM:PNTRANS [phone] ML GROVE MD 09/10/18 1538 interface
--- NOTE | ~2018-09-05 | PR ---
[place], [place] PROGRESS NOTE NAME: SORAYA OLMEDO UNIT #: [id number] ROOM: 419 DOCTOR: ML GROVE MD BIRTHDATE: [birth year] DOS: SUBJECTIVE: The patient is emotional and confused this morning. OBJECTIVE: VITAL SIGNS: Graphic trend shows a pressure of 132/62, pulse of 79, respirations 18, temperature 99.25 with a T-max of 102.2. LUNGS: Diminished breath sounds. HEART: Regular. ABDOMEN: Obese, soft. EXTREMITIES: Still pretty swollen, red and quite tender and warm to touch. LABORATORY DATA: Blood cultures positive for MRSA. Labs this morning shows a glucose of 68, BUN 16, creatinine 0.91, sodium 136, potassium 3.8, chloride 101, bicarbonate 27. WBC count is 8.1, hemoglobin 11.6. ASSESSMENT AND PLAN: 1. Sepsis with methicillin-resistant Staphylococcus aureus, source of bacteremia unknown at this present time. It could very well be from the capsulitis. We are awaiting a triphasic bone scan and an MRI of the foot, also get an ID consultation. 2. Metabolic encephalopathy, multifactorial, possibly from sepsis. CT head was negative. 3. Type 2 diabetes mellitus, diet controlled, now. 4. Benign hypertension, controlled. 5. Chronic atrial fibrillation, controlled on long-term use of anticoagulants. 6. Capsulitis versus gouty arthropathy, unlikely it is gouty arthropathy. The patient has been on colchicine for the last 3 days and has not much improvement clinically noticed on the right foot. Again, we will await and see what the MRI and the triphasic bone scan shows, CT of the foot did not show any fractures. ML GROVE MD CM:PNTRANS [phone] ML GROVE MD 09/08/18 1002 interface
--- NOTE | ~2018-09-05 | O ---
[place], [place] OPERATIVE NOTE NAME: [id number] UNIT #: [id number] ROOM: 419 DOCTOR: ALEX VALLE DPM BIRTHDATE: [birth year] DOS: 09/10/2018 SURGEON: Alex Valle DPM ASSISTANTS: 1. Dr. Naom Garcia. 2. Dr. Quinton Dawn. PREOPERATIVE DIAGNOSES: Abscess, right foot, ankle; osteomyelitis, right ankle/hindfoot. POSTOPERATIVE DIAGNOSES: Abscess, right foot, ankle; osteomyelitis, right ankle/hindfoot. PROCEDURES: Incision and drainage, bone debridement, bone biopsy, right ankle; incision and drainage of abscess, right ankle/hindfoot and irrigation and VAC applied to the right hindfoot and ankle. Negative pressure therapy was applied. DESCRIPTION OF PROCEDURE: The patient was seen in preoperative holding area and appropriate site marking was performed. Her daughter concurred as well as the patient verbally. She was brought in the OR and placed on a well-padded OR table where anesthesia was achieved. PROCEDURE #1: INCISION AND DRAINAGE, BONE DEBRIDEMENT, BONE BIOPSY RIGHT ANKLE/HINDFOOT: Once the anesthesia was achieved, under fluoroscopy guidance it reflected the abscess of the distal portion of her ankle and to her hindfoot, approximately 4 cm incision was made. This was deepened and deplaned to deep fascia and at the time a significant amount of purulent drainage consistent with staphylococcus aureus infection was removed in total. Tissue cultures were sent for Gram stain, aerobic, anaerobic, fungal acid fast as well as tissue biopsy. This was carried deep to the bone where bone was debrided with a rongeur. The bone was removed and resected and debrided with a rongeur and a curette. The bone was sent for Gram stain, aerobic, anaerobic, fungal acid fast as well as bone biopsy. The area was irrigated with pulse irrigation. PROCEDURE #2: IRRIGATION, WOUND VAC APPLICATION AND APPLICATION OF NEGATIVE PRESSURE THERAPY: Next, after irrigation was performed, a wound VAC was applied to the right lower extremity, 4 x 4s, Art in a sterile compressive fashion was applied. She tolerated the procedure and anesthesia well and left the OR with vital signs stable and vascular status intact. Once the incision and drainage was done, her skin lines returned and tension was off the soft tissues surrounding the site. [place], [place] OPERATIVE NOTE NAME: SORAYA OLMEDO UNIT #: [id number] ROOM: 419 DOCTOR: ALEX VALLE DPM BIRTHDATE: [birth year] ALEX VALLE DPM CM:OPRECORD:OPERATIVE NOTE [id number] ALEX VALLE DPM 09/18/18 0759 interface
--- NOTE | ~2018-09-05 | PR ---
[place], [place] PROGRESS NOTE NAME: SORAYA OLMEDO UNIT #: [id number] ROOM: 419 DOCTOR: ML GROVE MD BIRTHDATE: [birth year] DOS: SUBJECTIVE: The patient was unable to be discharged yesterday because the longterm was unable to get the wound VAC. OBJECTIVE: VITAL SIGNS: Blood pressure is 113/64, pulse of 70, respirations 18, afebrile. LUNGS: Clear. HEART: Regular. ABDOMEN: Obese, soft. EXTREMITIES: Without any edema. Right foot is still bandaged. I did not open it. ASSESSMENT AND PLAN: 1. Foot abscess with methicillin-resistant Staphylococcus aureus bacteremia, on IV antibiotics. Discussed with Dr. Todd yesterday. She has been requesting a transesophageal echocardiogram to be done. Unfortunately, the machine is still down here. Discussed with Dr. Mendoza. We will schedule it as an outpatient once she leaves the facility to a longterm. 2. Adult failure to thrive with continue PT, OT at the longterm. I am hoping that she will receive her wound VAC today. ML GROVE MD CM:PNTRANS 1 4 ML GROVE MD 09/16/18924 interface
--- NOTE | ~2018-09-05 | DS ---
[place], [place] DISCHARGE SUMMARY NAME: SORAYA OLMEDO UNIT #: [id number] ROOM: 419 DOCTOR: ML GROVE MD BIRTHDATE: [birth year] DOS: 09/15/2018 DIAGNOSES: 1. Sepsis with methicillin-resistant Staphylococcus aureus. 2. Abscess of the right foot, status post I and D with wound care and wound VAC. 3. Wound culture also growing MRSA. 4. Type 2 diabetes mellitus, insulin-dependent with hypoglycemia. 5. COPD with chronic respiratory failure, generalized anxiety disorder, diastolic CHF by history. Adult failure to thrive, macular degeneration. MEDICATIONS ON DISCHARGE: Will be Os-Pranav with vitamin D 600 mg twice a day, Colace 100 mg daily, vitamin D 2000 units daily, glipizide 5 b.i.d., levothyroxine 125 mcg daily, losartan 100 daily, metoprolol 25 b.i.d., Protonix 40 daily, oxygen 2 liters per minute nasal cannula at night, Eliquis 5 b.i.d., PreserVision one tablet b.i.d., Lasix 40 daily, potassium 8 mEq daily, loratadine 10 daily, Xanax 0.25 mg at bedtime p.r.n. and vancomycin 750 mg IV q.12, vancomycin peak and trough to be followed by Infectious Disease and right now, the duration of IV antibiotics for 6 weeks, but this to be determined by the Infectious Disease. The patient to be seen by Dr. Todd as an outpatient. HOSPITAL COURSE: The patient is an 82-year-old, very well known to us, comes in with complaints of right foot pain and swelling, the patient's right foot was red and swollen and had difficulty ambulating. She had hyperuricemia with a uric acid about 10. This was initially thought to be gouty arthropathy and the patient was placed on colchicine and allopurinol and Podiatry was also consulted. The patient unfortunately did not improve. Her white cell count was normal. Basic metabolic panel was normal, but blood cultures that was done in the Emergency Room came back positive for MRSA and MRI and bone scan of the foot was ordered along with the ESR and CRP, this indeed was pretty high and the MRI and the triphasic bone scan did show presence of foot abscess, at this time, the patient was taken for surgery by Podiatry and I and D was performed. The patient was already seen by Cardiology from Dr. Mendoza and Infectious Disease from Dr. Todd and consultation with Dr. hCaudhry was also obtained. The patient's echocardiogram was done to rule out SBE. Echocardiogram so far has come back negative and unfortunately the BLAZE machine in the hospital was not working and we were unable to perform that this may need to be done as an outpatient. The patient has history of MRSA bacteremia and MRSA infection with an epidural abscess in 2007, but this had completely cleared after 6 weeks of antibiotics in 2007, but colonization needs to be reviewed and BLAZE most likely will need to be done as an outpatient. The patient has improved after the I and D was performed. Her mental status has improved. She is no longer confused. Social service has been consulted and the patient has been accepted at the [facility] and the plan therefore will be to discharge her there. DISCHARGE MEDICATIONS: As above. DIET: ADA 1800. PT/OT consultation will be obtained. Please do a basic metabolic panel every 3 [place], [place] DISCHARGE SUMMARY NAME: SORAYA OLMEDO UNIT #: [id number] ROOM: 419 DOCTOR: ML GROVE MD BIRTHDATE: [birth year] days while she is on vancomycin. ML GROVE MD CM:DISCHARG 7 2 ML GROVE MD 09/15/18842 interface
--- NOTE | ~2018-09-05 | CON ---
[place], [place] REPORT OF CONSULTATION NAME: SORAYA OLMEDO UNIT #: [id number] ROOM: 419 DOCTOR: SHRADDHA CHAUDHRY MD BIRTHDATE: [birth year] DOS: 09/09/2018 CHIEF COMPLAINT: Right foot pain. HISTORY OF PRESENT ILLNESS: This is a pleasant 82-year-old female with right foot pain. She was admitted on 09/06/2018 with inability to bear weight on the right foot. The right foot is painful to her. It is painful over the dorsal lateral aspect. There is overlying redness. She is able to flex and extend the ankle without any pain. No trauma that she can recall. No nausea. No vomiting. She does have a history of a back infection from vertebroplasty in 2007 and another back infection in 2010. She does not report of fever. Current pain level is moderate, about 3-4 on a scale of 1-10, 10 being the worst. She is on IV antibiotics. PAST MEDICAL AND SURGICAL HISTORY: 1. Congestive heart failure. 2. Status post right shoulder fracture with adhesive capsulitis. 3. Chronic obstructive pulmonary disease. 4. Diabetes mellitus, type 2, last A1c is above 7. 5. Hyperlipidemia. 6. Hypertension. 7. Hypothyroid, chronic. 8. Status post hysterectomy. 9. Status post multiple back surgeries for infections. ALLERGIES: None. MEDICATIONS: None. REVIEW OF SYSTEMS: A 10-point review of systems was conducted and is negative except for pertinent positives listed in the history of present illness. SOCIAL HISTORY: No illicit drug use. No tobacco use. No alcohol use. PHYSICAL EXAMINATION: GENERAL: Her general appearance is well. She is oriented to person, place and time. Her mood is euthymic. Her affect is appropriate. EXTREMITIES: Exam of the right foot, all compartments in the lower leg and foot are soft. Over the dorsal lateral aspect of the foot, she does have some erythema and I am able to palpate a mass that may be an abscess. No skin lesions are noted. No wound is seen. Despite the swelling, foot compartments remained soft. Toes are warm and well perfused. She is weak, palpable pedal pulses. No pain to wiggle her toes. No pain with active nor passive range of motion of her toes. She can flex and extend the ankle against resistance without pain. No tenderness to palpation about the right ankle. Right calf is soft and nontender. Homans sign is negative. I examined the left foot. No ulcerations are seen. No skin lesions are noted. [place], [place] REPORT OF CONSULTATION NAME: SORAYA OLMEDO UNIT #: [id number] ROOM: 419 DOCTOR: SHRADDHA CHAUDHRY MD BIRTHDATE: [birth year] No erythema is noted. No tenderness to palpation throughout the left foot nor the left ankle. LABORATORY DATA: White count is 8.1. Total protein is 8.0. Albumin is 3.3. Creatinine is 1.4. Last glucoses were 478, 633. IMAGING: I reviewed lower extremity ultrasound from 09/08/2018, foot MRI from 09/08/2018, foot x-ray from 09/06/2018, bone scan from 09/06/2018, lower extremity ultrasound from 09/06/2018. The just of all of these is that she likely has a soft tissue abscess in the dorsal lateral aspect of the foot with overlying cellulitis as well as possible osteomyelitis in the distal aspect of the fifth proximal phalanx. The bone scan suggests possible osteomyelitis and metatarsals 2 through 5, but the MRI does not suggest osteomyelitis in the metatarsals. ASSESSMENT: An 82-year-old female, right foot abscess with overlying cellulitis and possible osteomyelitis. I do believe that the patient would benefit from surgical debridement of the right foot abscess. This would allow the abscess to be washed. Excellent cultures to be taken and antibiotic treatment can be specifically aimed at the offending organism. It is questionable whether to go after the bone right now. It is certainly possible to take a bone biopsy during the abscess surgery to see if there is any growth from the bone. Overall, the MRI does not show much osteomyelitis, only possible osteomyelitis in the proximal phalanx of the fifth toe. Without any wound or any lesion, it may be best to follow up with a second MRI image in a few weeks after the abscess has been washed out to see how the bone edema has progressed. Unfortunately, I am leaving town tomorrow 09/10/2018 and there is no orthopedic surgery coverage for about 10 days. Therefore, I do not think it is in the patient's best interest for me to take her to the operating room, wash out the abscess and then leave her without any orthopedic surgery coverage. I talked to the patient about this. The patient also does not feel comfortable with me operating and then not being available in the postop period, nor having any orthopedic surgery colleague available in the postop period. The other option is for another surgical service line here in the hospital to perform the soft tissue procedure of abscess washout with cultures. Another option is transferred to higher level of care facility where they have 24/ orthopedic surgery coverage. I reviewed all these options with the patient. She would like to stay here in [place] if possible. I talked to her about the risks. Risks here include worsening of the infection, [place], [place] REPORT OF CONSULTATION NAME: SORAYA OLMEDO UNIT #: [id number] ROOM: 419 DOCTOR: SHRADDHA CHAUDHRY MD BIRTHDATE: [birth year] development of bacteremia and sepsis, , amputation, worsening of infection, need for multiple surgeries, blood clot, pulmonary embolus and other risks. Her diabetes is out of control. She is elderly. This put her at a high risk of a complication. I had the opportunity to ask any questions. She understands and agrees with the treatment plan as I have outlined it. Shraddha Chaudhry MD CM:CONSTR:REPORT OF CONSULTATION 1302 09/10/18 0230 interface
--- NOTE | ~2018-09-05 | WRIGHTHP ---
[place], [place] PATIENT HISTORY AND PHYSICAL EXAM NAME: SORAYA OLMEDO UNIT #: [id number] ROOM: 419 DOCTOR: ML GROVE MD BIRTHDATE: [birth year] DOS: 09/06/2018 HISTORY OF PRESENT ILLNESS: The patient is 82 years old. This patient is very well known to us. She was seen in the office recently after multiple falls at home and complained of back pain, was placed on pain medications. As per daughter, she was visiting her, the patient complained of pain in his right foot and the right foot appeared quite red and swollen, so the patient was sent to the Emergency Room where she was evaluated and was admitted. The patient complains of a lot of pain. Denies having any chest pains, palpitations, does not have any fever or chills, does not have any abdominal pain, nausea, any emesis. Does not have any chest pain. PAST MEDICAL HISTORY: Significant for: 1. Benign hypertension. 2. Chronic atrial fibrillation, on long-term use of anticoagulants. 3. Type 2 diabetes mellitus, non-insulin dependent. 4. 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 5. Generalized anxiety disorder. 6. History of diastolic congestive heart failure. 7. Macular degeneration. 8. Adult failure to thrive. MEDICATIONS: That the patient currently on are amlodipine 10 daily, Eliquis 5 b.i.d., vitamin D 2000 units daily, Colace 100 mg b.i.d., Lasix 40 daily, glipizide 5 b.i.d.; levothyroxine 125 mcg daily, none on Sundays; loratadine 10 daily, losartan 100 daily, metoprolol 25 b.i.d., Protonix 40 daily, potassium 10 daily, tramadol 50 q. 6h. p.r.n., PreserVision 1 tablet daily. SOCIAL HISTORY: Nonsmoker, does not use any alcohol. She lives in assisted living in [facility]. PHYSICAL EXAMINATION: VITAL SIGNS: Graphic trend shows a pressure of 132/86, pulse of 70, respirations 18, afebrile. LUNGS: Diminished breath sounds. HEART: Regular. ABDOMEN: Obese, soft, nontender. EXTREMITIES: Without any edema on the left, right foot is swollen, puffy, red, hot to touch and quite tender for the patient. Distal palpitations within normal limits. LABORATORY DATA: White cell count is normal at 10.6, hemoglobin 12.1, platelets 167. Uric acid 10.2, BUN 39, creatinine 1.41, GFR 44, glucose 64. Troponin first set was 0.1, second set 0.084 and third set was 0.066. ASSESSMENT AND PLAN: 1. The patient presents with right foot swelling, pain. She is very uncomfortable, low dose Dilaudid was given. CT of the foot showed capsulitis. This could be gouty arthropathy especially with the uric acid of 10.2. The patient is not a candidate for any anti-inflammatories, but will be placed on [place], [place] PATIENT HISTORY AND PHYSICAL EXAM NAME: SORAYA OLMEDO UNIT #: [id number] ROOM: [facility] DOCTOR: ML GROVE MD BIRTHDATE: [birth year] allopurinol for hyperuricemia and colchicine for acute gout. 2. Type 2 diabetes mellitus, non-insulin dependent. Blood sugars on the low side. We will hold off on glipizide. 3. Elevated troponin most likely from renal insufficiency which is coming down and the patient has no symptoms. 4. Chronic kidney disease. Avoid nephrotoxic medications. She is hypotensive, so we will hold off on antihypertensives to prevent further drop in blood pressure and tubular necrosis and renal failure. 5. Adult failure to thrive, may require a SNF placement. PT/OT will be consulted. ML GROVE MD CM:HISPHYS:PATIENT HISTORY AND PHYSICAL EXAMINATION [id number] ML GROVE MD 09/06/18 1251 interface
--- NOTE | ~2018-09-05 | WRIGHTHP ---
[place], [place] PATIENT HISTORY AND PHYSICAL EXAM NAME: SORAYA OLMEDO UNIT #: [id number] ROOM: 419 DOCTOR: ALEX VALLE DPM BIRTHDATE: [birth year] DOS: 09/10/2018 INDICATIONS: The patient was scheduled for an I and D of right hindfoot and ankle. She had an inflamed and erythematous area, came in to the hospital and appeared that had developed more towards an abscess. At this point in time, she is set for surgery today on 09/10/2018 for incision and drainage, bone debridement and biopsy of right hindfoot and ankle. With this in mind, she is aware of pros, cons, risks, benefits. Her daughter was in the preop holding area. I discussed surgery with her, daughter is a nurse. She understood this. Her daughter was concerned that there may have been missed diagnosis. I told her this is a thing that probably developed, when she first got in probably was not present. We discussed the surgery, the postoperative care, preoperative management, need more likely than not long-term IV antibiotics and the patient concurred, agreed. The consent was reviewed with the patient and her daughter and they concurred. ALEX VALLE DPM CM:HISPHYS:PATIENT HISTORY AND PHYSICAL EXAMINATION 1305 [id number] ALEX VALLE DPM 09/18/18 0756 interface
--- NOTE | ~2018-09-05 | PR ---
[place], [place] PROGRESS NOTE NAME: SORAYA OLMEDO UNIT #: [id number] ROOM: 419 DOCTOR: MATIAS MOYA MD BIRTHDATE: [birth year] DOS: 09/12/2018 OBJECTIVE: GENERAL APPEARANCE: The patient is alert and oriented x 3, in no visible distress, except for generalized weakness. HEENT AND NECK: Exam within normal limits. CARDIOVASCULAR SYSTEM: Heart rate is regular in rate and rhythm. S1 and S2 normally audible. LUNGS: Clear to auscultation. ABDOMEN: Soft, nontender. No obvious organomegaly. Bowel sounds are present. EXTREMITIES: Without significant cyanosis or edema. Right foot wound surgery and wound VAC in place. IMPRESSION: 1. Right foot abscess surgery, surgical drainage by Dr. Cruz and wound VAC placement. The patient remains on IV vancomycin and ceftriaxone. Blood and wound cultures are growing methicillin-resistant Staphylococcus aureus. Preliminary bone culture results are negative. Final cultures are pending. Infectious Disease specialists are following. Once final recommendations are made, the patient will be sent to rehab for continued antibiotics and physical therapy. 2. Type 2 diabetes mellitus. Blood sugars are being monitored and treated. Blood sugars are now ranging between 120 to 200 mostly, occasionally higher. 3. Chronic atrial fibrillation. The patient is on long-term anticoagulation, heart rates are controlled. 4. Advance disability and failure to thrive. The patient working with Physical Therapy and we are taking bedsore precautions. 5. Obesity. The patient is working with Dietary. MATIAS MOYA MD CM:PNTRANS [id number] MATIAS MOYA MD 09/12/18 1256 interface
--- NOTE | ~2018-09-05 | PR ---
[place], [place] PROGRESS NOTE NAME: SORAYA OLMEDO UNIT #: [id number] ROOM: 419 DOCTOR: MARCO WITT MD BIRTHDATE: [birth year] DOS: SUBJECTIVE: This patient was admitted with cellulitis of the right foot and has Staphylococcus aureus positive blood cultures. She had an echocardiogram which demonstrated [id number] tricuspid regurgitation. Aortic and mitral leaflets looked fairly decent, and I reviewed the echocardiogram. She feels much better, does not have any fever or chills, and her appetite is okay. OBJECTIVE: CARDIOVASCULAR: Auscultation with no murmurs. NECK: JVP is normal. LUNGS: Fairly clear. EXTREMITIES: There is no edema in the left foot and right foot is dressed. IMPRESSION: This patient has Staphylococcus aureus infection of the right foot with Staph aureus bacteremia, but suspicion for endocarditis is low; therefore, current antimicrobial therapy should be continued. There is mild to moderate tricuspid regurgitation, which is asymptomatic. MARCO WITT MD CM:PNTRANS 1831 12 MARCO WITT MD 09/16/18 0342 interface
--- NOTE | ~2018-09-05 | PR ---
[place], [place] PROGRESS NOTE NAME: SORAYA OLMEDO UNIT #: [id number] ROOM: 419 DOCTOR: NORMA MONDRAGON MD BIRTHDATE: [birth year] DOS: 09/11/2018 SUBJECTIVE: The patient is anxious, confused. The patient examined. OBJECTIVE: VITAL SIGNS: Blood pressure today is 140/60. Room air saturation is 96%. She is confused. Blood pressure is stable. NECK: Supple, no JVD. LUNGS: Diminished breath sounds. HEART: Sounds are regular. ABDOMEN: Obese, soft, nontender. EXTREMITIES: Without edema. LABORATORY DATA: Shows hemoglobin 11.6, hematocrit 35.8, GFR is normal. Glucose is elevated. REVIEW OF SYSTEMS: Not possible because of the confusion. IMPRESSION: 1. Abscess. 2. Metabolic encephalopathy. 3. Osteomyelitis. 4. Diabetes mellitus. 5. Failure to thrive. 6. Benign hypertension. 7. Chronic atrial fibrillation, on long-term anticoagulation. PLAN: Will be resumed after the procedure and we will follow up. NORMA MONDRAGON MD CM:PNTRANS 1001 1150 NORMA MONDRAGON MD 09/11/18 1150 interface
[~2018-09-05 23:27] MED LIST changes: +PREDNISONE20 M1 PO
[2018-09-05 23:30] VITALS: BP 132/70
[2018-09-06 00:13] LABS: BASO % 0.1 % (0.0-1.0); EOS % 0.1 % (1.0-4.0); HEMATOCRIT 37.6 % (37.0-47.0); HEMOGLOBIN 12.1 g/dl (12.0-16.0); LYMPH # 1.4 10*3/uL (1.3-4.4); LYMPH % 13.3 % (27.0-41.0); MEAN CORPUSCULAR HGB 29.3 pg (27.0-31.0); MEAN CORPUSCULAR HGB CONC 32.2 g/dl (33.0-37.0); MEAN PLATELET VOLUME 10.2 fl (9.6-12.3); MONO # 0.8 10*3/uL (0.1-1.0); MONO % 7.8 % (3.0-9.0); NEUT # 8.3 10*3/uL (2.3-7.9); NEUT % 78.2 % (47.0-73.0); PLATELET COUNT AUTOMATED 167 10*3/uL (130-400); RED BLOOD COUNT 4.13 10*6/uL (4.10-5.10); RED CELL DISTRI WIDTH 13.7 % (0-14.5); WHITE BLOOD COUNT 10.6 10*3/uL (4.8-10.8)
[2018-09-06 00:31] LABS: ALBUMIN 3.3 gm/dl (3.1-4.5); CREATININE 1.41 mg/dL (0.55-1.02); POTASSIUM 3.6 mmol/L (3.5-5.1); URIC ACID 10.2 mg/dL (2.6-6.0)
[2018-09-06 00:33] LABS: TROPONIN I 0.1 ng/ml (<0.045)
[2018-09-06 01:20] VITALS: BP 119/62
[2018-09-06 02:00] VITALS: BP 85/58
[2018-09-06 08:00] VITALS: BP 98/38
[2018-09-06 12:00] VITALS: BP 121/59
[2018-09-06 16:00] VITALS: BP 131/48
[2018-09-06] MEDS ORDERED: XANAX0.25 MG PO (18:12)
[2018-09-06 20:00] VITALS: BP 122/61; BP 124/62
[2018-09-07] VITALS: BP 130/72
[2018-09-07 06:32] LABS: BASO % 0.2 % (0.0-1.0); EOS % 0.1 % (1.0-4.0); HEMATOCRIT 35.8 % (37.0-47.0); HEMOGLOBIN 11.3 g/dl (12.0-16.0); LYMPH # 1.1 10*3/uL (1.3-4.4); LYMPH % 11.4 % (27.0-41.0); MEAN CORPUSCULAR HGB CONC 31.6 g/dl (33.0-37.0); MEAN PLATELET VOLUME 10.9 fl (9.6-12.3); MONO % 10.1 % (3.0-9.0); NEUT # 7.3 10*3/uL (2.3-7.9); NEUT % 77.8 % (47.0-73.0); PLATELET COUNT AUTOMATED 148 10*3/uL (130-400); RED BLOOD COUNT 3.89 10*6/uL (4.10-5.10); RED CELL DISTRI WIDTH 13.5 % (0-14.5); WHITE BLOOD COUNT 9.4 10*3/uL (4.8-10.8)
[2018-09-07 07:04] LABS: CREATININE 1.16 mg/dL (0.55-1.02); POTASSIUM 3.8 mmol/L (3.5-5.1)
[2018-09-07 08:00] VITALS: BP 110/62
[2018-09-07 12:00] VITALS: BP 127/49
[2018-09-07 16:00] VITALS: BP 118/47
[2018-09-07 20:00] VITALS: BP 143/66
[2018-09-08] VITALS: BP 128/46
[2018-09-08 06:42] LABS: BASO % 0.4 % (0.0-1.0); EOS # 0.1 10*3/uL (0.0-0.4); EOS % 1.1 % (1.0-4.0); HEMATOCRIT 35.8 % (37.0-47.0); HEMOGLOBIN 11.6 g/dl (12.0-16.0); LYMPH # 1.7 10*3/uL (1.3-4.4); LYMPH % 20.7 % (27.0-41.0); MEAN CELL VOLUME 90.2 fl (81.0-99.0); MEAN CORPUSCULAR HGB 29.2 pg (27.0-31.0); MEAN CORPUSCULAR HGB CONC 32.4 g/dl (33.0-37.0); MONO # 0.6 10*3/uL (0.1-1.0); MONO % 7.4 % (3.0-9.0); NEUT # 5.7 10*3/uL (2.3-7.9); NEUT % 70.2 % (47.0-73.0); PLATELET COUNT AUTOMATED 149 10*3/uL (130-400); RED BLOOD COUNT 3.97 10*6/uL (4.10-5.10); RED CELL DISTRI WIDTH 13.3 % (0-14.5); WHITE BLOOD COUNT 8.1 10*3/uL (4.8-10.8)
[2018-09-08 06:58] LABS: BUN 16 mg/dl (7-24); CHLORIDE 101 mmol/L (98-107); CREATININE 0.91 mg/dL (0.55-1.02); POTASSIUM 3.8 mmol/L (3.5-5.1); SODIUM 136 mmol/L (136-145)
[2018-09-08 08:00] VITALS: BP 132/62
[2018-09-08 12:00] VITALS: BP 126/86
[2018-09-08 16:00] VITALS: BP 127/68
[2018-09-08 20:00] VITALS: BP 145/88
[2018-09-09] VITALS: BP 116/65; BP 130/62
[2018-09-09 07:01] VITALS: BP 126/63
[2018-09-09 08:00] VITALS: BP 142/67
[2018-09-09 12:00] VITALS: BP 127/89
[2018-09-09 16:00] VITALS: BP 112/47
[2018-09-09 20:00] VITALS: BP 138/95
[2018-09-10] VITALS (8 sets, daily range): BP systolic 120–152; BP diastolic 50–89
[2018-09-10 08:20] LABS: BUN 23 mg/dl (7-24); CREATININE 0.85 mg/dL (0.55-1.02)
[2018-09-11] VITALS: BP 144/72
[2018-09-11 08:00] VITALS: BP 141/61
[2018-09-11 12:00] VITALS: BP 136/86
[2018-09-11 16:00] VITALS: BP 120/61
[2018-09-11 20:00] VITALS: BP 125/53
[2018-09-12] VITALS: BP 130/57
[2018-09-12 08:00] VITALS: BP 129/69
[2018-09-12 12:00] VITALS: BP 121/71
[2018-09-12 12:29] LABS: BASO % 0.4 % (0.0-1.0); EOS # 0.2 10*3/uL (0.0-0.4); EOS % 2.8 % (1.0-4.0); HEMATOCRIT 35.3 % (37.0-47.0); HEMOGLOBIN 11.4 g/dl (12.0-16.0); LYMPH # 1.8 10*3/uL (1.3-4.4); LYMPH % 27.5 % (27.0-41.0); MEAN CELL VOLUME 90.5 fl (81.0-99.0); MEAN CORPUSCULAR HGB 29.2 pg (27.0-31.0); MEAN CORPUSCULAR HGB CONC 32.3 g/dl (33.0-37.0); MEAN PLATELET VOLUME 9.4 fl (9.6-12.3); MONO # 0.4 10*3/uL (0.1-1.0); MONO % 6.4 % (3.0-9.0); NEUT # 4.2 10*3/uL (2.3-7.9); NEUT % 62.2 % (47.0-73.0); PLATELET COUNT AUTOMATED 208 10*3/uL (130-400); RED CELL DISTRI WIDTH 13.7 % (0-14.5); WHITE BLOOD COUNT 6.7 10*3/uL (4.8-10.8)
[2018-09-12 16:00] VITALS: BP 110/56
[2018-09-12 20:00] VITALS: BP 122/47
[2018-09-13] VITALS: BP 132/68
[2018-09-13 06:55] LABS: BUN 8 mg/dl (7-24); CREATININE 0.73 mg/dL (0.55-1.02)
[2018-09-13 08:00] VITALS: BP 118/64
[2018-09-13 12:00] VITALS: BP 121/59
[2018-09-13 14:05] LABS: ACID FAST SPEC PROCESSING Tissue Grinding (.)
[2018-09-13 14:05] LABS: ACID FAST SPEC PROCESSING Tissue Grinding (.)
[2018-09-13 16:00] VITALS: BP 112/64
[2018-09-13 20:00] VITALS: BP 129/57
[2018-09-14] VITALS: BP 128/53
[2018-09-14 08:00] VITALS: BP 130/72
[2018-09-14 12:00] VITALS: BP 96/52
[2018-09-14 16:00] VITALS: BP 114/87
[2018-09-14 20:00] VITALS: BP 123/66
[2018-09-15] VITALS: BP 128/46
[2018-09-15 08:00] VITALS: BP 107/56
[2018-09-15 09:40] LABS: BASO % 0.6 % (0.0-1.0); EOS # 0.2 10*3/uL (0.0-0.4); EOS % 2.4 % (1.0-4.0); HEMATOCRIT 37.4 % (37.0-47.0); HEMOGLOBIN 11.9 g/dl (12.0-16.0); LYMPH # 1.9 10*3/uL (1.3-4.4); LYMPH % 30.6 % (27.0-41.0); MEAN CORPUSCULAR HGB CONC 31.8 g/dl (33.0-37.0); MEAN PLATELET VOLUME 9.9 fl (9.6-12.3); MONO # 0.5 10*3/uL (0.1-1.0); MONO % 7.6 % (3.0-9.0); NEUT # 3.7 10*3/uL (2.3-7.9); PLATELET COUNT AUTOMATED 253 10*3/uL (130-400); RED BLOOD COUNT 4.11 10*6/uL (4.10-5.10); RED CELL DISTRI WIDTH 13.9 % (0-14.5); WHITE BLOOD COUNT 6.3 10*3/uL (4.8-10.8)
[2018-09-15] MEDS ORDERED: CEFTRIAXONE1 GM IV (09:44)
[2018-09-15 10:12] LABS: BUN 5 mg/dl (7-24); CHLORIDE 106 mmol/L (98-107); CREATININE 0.92 mg/dL (0.55-1.02); POTASSIUM 3.4 mmol/L (3.5-5.1); SODIUM 140 mmol/L (136-145)
[2018-09-15 12:00] VITALS: BP 112/50
[2018-09-15 16:00] VITALS: BP 137/50
[2018-09-15 20:00] VITALS: BP 131/89
[2018-09-16] VITALS: BP 119/73
[2018-09-16 08:00] VITALS: BP 113/64
[2018-09-16 12:00] VITALS: BP 121/50
[2018-09-16 16:00] VITALS: BP 126/55
[2018-09-16 20:00] VITALS: BP 106/66
[2018-09-17] VITALS: BP 127/57
[2018-09-17 08:00] VITALS: BP 133/71
== END 2018-09-17 11:10 | disposition other institution (70) | DRG 853 ==
LOC: ED 23:27 → 4E 09-06 01:30 → EDHOLD 09-06 01:30 → 4E 09-06 01:37
PROVIDERS: Internal Medicine; Nurse Practitioner Family; Podiatrist; Podiatrist Foot & Ankle Surgery
PROC: 0YBM0ZZ Excision of Right Foot, Open Approach (ICD-10-PCS; principal; 2018-09-10)
PROC: 02HV33Z Insertion of Infusion Device into Superior Vena Cava, Percutaneous Approach (ICD-10-PCS; 2018-09-15)
DX: A41.02 Sepsis due to Methicillin resistant Staphylococcus aureus (principal); G93.41 Metabolic encephalopathy; L03.115 Cellulitis of right lower limb; L02.611 Cutaneous abscess of right foot; J96.10 Chronic respiratory failure, unspecified whether with hypoxia or hypercapnia; I13.0 Hypertensive heart and chronic kidney disease with heart failure and stage 1 through stage 4 chronic kidney disease, or unspecified chronic kidney disease; I50.32 Chronic diastolic (congestive) heart failure; M86.8X7 Other osteomyelitis, ankle and foot; M10.9 Gout, unspecified; M81.0 Age-related osteoporosis without current pathological fracture; M47.9 Spondylosis, unspecified; F32.9 Major depressive disorder, single episode, unspecified; E78.5 Hyperlipidemia, unspecified; E11.22 Type 2 diabetes mellitus with diabetic chronic kidney disease; N18.3 Chronic kidney disease, stage 3 (moderate); E03.9 Hypothyroidism, unspecified; F41.1 Generalized anxiety disorder; E11.65 Type 2 diabetes mellitus with hyperglycemia; R62.7 Adult failure to thrive; H35.30 Unspecified macular degeneration; E66.9 Obesity, unspecified; I07.1 Rheumatic tricuspid insufficiency; I48.2 Chronic atrial fibrillation; J43.2 Centrilobular emphysema; E11.69 Type 2 diabetes mellitus with other specified complication; R74.8 Abnormal levels of other serum enzymes; S40.011A Contusion of right shoulder, initial encounter; M75.00 Adhesive capsulitis of unspecified shoulder; X58.XXXA Exposure to other specified factors, initial encounter; Y93.89 Activity, other specified; Y92.89 Other specified places as the place of occurrence of the external cause; Y99.8 Other external cause status; Z87.81 Personal history of (healed) traumatic fracture; Z87.440 Personal history of urinary (tract) infections; Z90.710 Acquired absence of both cervix and uterus; Z83.3 Family history of diabetes mellitus; Z82.49 Family history of ischemic heart disease and other diseases of the circulatory system; Z68.32 Body mass index [BMI] 32.0-32.9, adult; Z98.1 Arthrodesis status; Z79.899 Other long term (current) drug therapy

== ENCOUNTER 2019-10-16 01:54 | Inpatient (IN) | payer MEDICARE ==
[2019-10-16] VITALS (7 sets, daily range): BP systolic 113–152; BP diastolic 42–78
[~2019-10-16] VITALS: Ht 152.4 cm; Wt 81.7 kg
[~2019-10-16 01:54] MED LIST changes: +CEFTRIAXONE1 GM IV
[2019-10-16 02:52] LABS: BASO % 0.2 % (0.0-1.0); EOS % 0.4 % (1.0-4.0); HEMATOCRIT 33.3 % (37.0-47.0); HEMOGLOBIN 10.9 g/dl (12.0-16.0); LYMPH # 0.6 10*3/uL (1.3-4.4); LYMPH % 12.4 % (27.0-41.0); MEAN CELL VOLUME 98.8 fl (81.0-99.0); MEAN CORPUSCULAR HGB 32.3 pg (27.0-31.0); MEAN CORPUSCULAR HGB CONC 32.7 g/dl (33.0-37.0); MEAN PLATELET VOLUME 10.9 fl (9.6-12.3); MONO # 0.3 10*3/uL (0.1-1.0); MONO % 6.5 % (3.0-9.0); NEUT # 4.1 10*3/uL (2.3-7.9); NEUT % 79.9 % (47.0-73.0); PLATELET COUNT AUTOMATED 94 10*3/uL (130-400); RED BLOOD COUNT 3.37 10*6/uL (4.10-5.10); RED CELL DISTRI WIDTH 13.9 % (0-14.5); WHITE BLOOD COUNT 5.1 10*3/uL (4.8-10.8)
[2019-10-16 03:01] LABS: INTERNATIONAL NORM RATIO 1.6 (2.0-3.5)
[2019-10-16 03:09] LABS: ALBUMIN 3.4 gm/dl (3.1-4.5); ALKALINE PHOSPHATASE 66 U/L (45-117); BUN 37 mg/dl (7-24); CHLORIDE 107 mmol/L (98-107); CPK 96 U/L (26-192); CREATININE 1.72 mg/dL (0.55-1.02); POTASSIUM 4.1 mmol/L (3.5-5.1); SGOT/AST 29 IU/L (3-35); SGPT/ALT 21 U/L (12-78); SODIUM 137 mmol/L (136-145); TOTAL PROTEIN 7.1 gm/dL (6.4-8.2)
[2019-10-16 03:11] LABS: TROPONIN I < 0.015 ng/ml (<0.045)
[2019-10-16 05:46] LABS: BILIRUBIN NEGATIVE (NEGATIVE); BLOOD 1+ (NEGATIVE); CLARITY SL CLOUDY (CLEAR); COLOR YELLOW (YELLOW); GLUCOSE NEGATIVE (NEGATIVE); KETONE NEGATIVE (NEGATIVE); LEUKO ESTERASE 1+ (NEGATIVE); NITRITE POSITIVE (NEGATIVE); UROBILINOGEN 0.2 E.U./dl (0.2-1.0)
[2019-10-16 05:54] LABS: BACTERIA 2+; EPITHELIAL CELLS 15-20; WBC 41-50 wbc/hpf (0-5)
--- NOTE | 2019-10-16 07:18 | NUR ---
ICE PACK GIVEN AND APPLIED TO PTS LEFT ARM
[2019-10-16] MEDS ORDERED: LASIX40 MG PO (08:25)
[2019-10-16] MEDS ORDERED: GLIPIZIDE2.5 MG PO (08:27)
--- NOTE | 2019-10-16 08:40 | NUR ---
CCAA 84, admitted to , under the services of Dr. GRIFFIN ENGLE,MATIAS Johnston with a diagnosis of UTI, USHA, FALL. Chief complaint is PAIN WITH MOVEMENT. Patient arrived via bed from ER. Monitor applied. Initial assessment completed. Vital signs taken and recorded. DR. GRIFFIN ENGLE,MATIAS Johnston notified of admission to the unit. Orders received. See assessment for past medical history, medications and allergies. Patient and/or family oriented to unit. [facility] visitation policy reviewed. Clothing/patient valuable form completed. GT NG
--- NOTE | 2019-10-16 10:34 | NUR ---
Received [facility] for [facility]; contacted [facility] who does not have any available beds right now, but they stated [facility] (patient normally resides at [facility]). Will send referral when chart has H & P and physical therapy eval.
--- NOTE | 2019-10-16 13:12 | NUR ---
PHYSICAL THERAPY Eval received upon reviewing patients chart noted CT scan finding of spinous process fx's C6-7, Burst fx T1..spoke with case management reg results as primary nurse on break. They will speak with nsg field pipelines supervisor will defer/hold PT at present time until further clarification of test and discussion with MD Khadijah Fulton PT
--- NOTE | 2019-10-16 13:14 | NUR ---
Spoke with case management of OTR concern of CT findings as follows:from 10/16/19: "Traumatic subluxation of C7 with respect to T1 is noted secondary to jumped facets which are identified from C6 through T1. Spinous process fractures of C6 and C7 is seen. Burst fracture of the T1 vertebral body is identified. There is bony retropulsion with canal stenosis seen at the T1 vertebral level. Epidural hematoma is also suspected. Immediate neurosurgical consultation and MRI is recommended." Due to need for immediate neurosurgical consultation, hold OT evaluation until further activity recommendations ordered. Charito Murray OTR/l
--- NOTE | 2019-10-16 14:26 | NUR ---
SPOKE WITH PT AND DAUGHTER, PER DAUGHTER, PT HAS HAD 4 BACK SURGERIES AT [facility], PER ELISE SURGEON, (DAUGHTER STATED) THERE IS NOTHING THAT CAN BE DONE FOR PT. AND REFUSING MRI
--- NOTE | 2019-10-16 14:49 | NUR ---
According to CT report, patient has "burst fx of T1 and epidural hematoma" recommending neuro surgical consult or MRI. Dr. Leonardo ordered the stat MRI but daughter is refusing. Physical therapy and occupational therapy are unable to work with the patient at this time with an "active fx". Contacted elsa at [facility] and she said they will hold a bed for her at [facility] but wait until Saturday to send referral and what evolves over the weekend.
--- NOTE | 2019-10-16 14:59 | NUR ---
PHYSICAL THERAPY Case mangagement requesting eval as pt's family refusing MRI. Disccused with PERCY and Bridget regarding concerns with mobilizing pt without MD clearance. Per STEPH will have MD discuss with family and will write further orders as appropriate regarding activity. Khadijah Fulton PT
--- NOTE | 2019-10-16 15:03 | NUR ---
Spoke with case management/social welfare research worker who reported that family has refused MRI. Spoke with access rn who reports that Dr Leonardo will speak with the family over the weekend and OT/PT will receive further direction on Saturday for the evaluation. Charito Murray OTr/l
--- NOTE | 2019-10-16 15:09 | NUR ---
SPOKE WITH DR. MOYA REGARDING THERAPY. HE STATED THAT THE PT WAS BEYOND REPAIR AND THAT IT IS OKAY FOR THERAPY TO WORK WITH PT.
--- NOTE | 2019-10-16 23:57 | NUR ---
24 HR chart check completed.
[2019-10-17] VITALS: BP 118/64
[2019-10-17 12:00] VITALS: BP 143/63
[2019-10-17 16:00] VITALS: BP 149/68
--- NOTE | 2019-10-17 19:15 | NUR ---
Patient resting quietly with no c/o discomfort. Respirations easy and regular. Vital signs stable. No overt distress. TUNG HORTON
[2019-10-17 20:00] VITALS: BP 131/64
--- NOTE | 2019-10-17 20:45 | NUR ---
Hep Lock discontinued, RH . Site symptomatic, PATIENT PULLED OUT. Pressure applied. Sterile dressing applied. TUNG HORTON
--- NOTE | 2019-10-17 21:00 | NUR ---
IV started right antecubital with #22 protective cath after 0 attempts. Site prepped with Chloroprep. Sterile dressing applied. Patient tolerated procedure well. TUNG HORTON
[2019-10-18] VITALS: BP 111/57
[2019-10-18 08:00] VITALS: BP 130/78; BP 165/73
[2019-10-18 12:00] VITALS: BP 115/63
[2019-10-18 16:00] VITALS: BP 142/82
[2019-10-18 20:00] VITALS: BP 152/80
--- NOTE | 2019-10-18 22:00 | NUR ---
PATIENT IS REFUSING TO WEAR SOFT COLLAR AT THIS TIME FOR BED. WILL ATTEMPT LATER WHEN PATIENT WAKES UP
[2019-10-19] VITALS: BP 120/69
[2019-10-19 08:00] VITALS: BP 98/58
--- NOTE | 2019-10-19 09:25 | NUR ---
Initial referral [facility]ed to [facility]. Waiting for clearance so physical therapy and occupational therapy can evaluate.
--- NOTE | 2019-10-19 10:30 | NUR ---
PHYSICAL THERAPY Discussed patient status in meeting, per MD notes family refusing any interventions. No MRI,neurosurgical consult or surgery. MD has not written any specific activity level or limitations at this time except for ordering a soft collar of which pt refusing to wear and nsg looking at obtaining a different size. CM did speak with ema Diaz on the phone this AM (ema is a nurse) and explained concerns for implementing PT/OT and causing further injury due to no interventions to stabilize involved area and no guidelines regarding activity. The [facility] does not want skilled therapy at this time and prefers pt be tranfered back to assisted living with possible f/u therapy at the facility. Will continue to defer therapy until further clarification by MD Khadijah Fulton PT
--- NOTE | 2019-10-19 10:59 | NUR ---
Discussed discharge plans with patients daughter. She stated she does not want any type of aggressive treatment for her mother and doesn't want her to go to a fci facility because it only increases her confusion. she would like patient to return to [facility] and order physical therapy to evaluate her when she returns.
--- NOTE | 2019-10-19 11:48 | NUR ---
At UR meeting,discussion that family did not want any neurosurgical consult or MRI as recommended by the radiologist who performed the recent CT scan. Doctor recommended soft cervical collar that patient refuses as daughter says is the wrong size. civil manager reported that she explained why OT/PT could not evaluate patient due to concern for further spinal injury and daughter verbalized that she did not want her mother to go to SNF and she would like her to return to [facility] assisted living upon d/c and have PT there. At this time hold OT until specific activity guidelines can be determined for OT evaluation and patient safety. Charito Murray OTR/l
[2019-10-19 12:00] VITALS: BP 110/61
--- NOTE | 2019-10-19 14:33 | NUR ---
Daughter called back and stated she would like her mother to have [facility] upon discharge and return to [facility]. Received home health order and faxed referral to [facility].
[2019-10-19 16:00] VITALS: BP 114/60
[2019-10-19 20:00] VITALS: BP 126/88
[2019-10-20] VITALS: BP 131/88
--- NOTE | 2019-10-20 02:35 | NUR ---
24 HR chart check completed.
--- NOTE | 2019-10-20 08:22 | NUR ---
Patient is ok to return to [facility] living. Daughter requesting visitin nurses through [facility]. Received order and faxed referral. Patient is ok to go when medically stable for discharge.
--- NOTE | 2019-10-20 09:00 | NUR ---
case management visits with patient, she will return to [facility] living with [facility], no other needs at this time
[2019-10-20 13:03] VITALS: BP 90/52
[2019-10-20] MEDS ORDERED: ULTRAM50 MG PO (15:43)
--- NOTE | 2019-10-20 17:15 | NUR ---
Discharge instructions reviewed with patient/family. Patient receptive and verbalizes understanding. Follow-up care arranged. Written instructions given to patient/family. JORDAN OLIVEIRA
== END 2019-10-20 17:15 | disposition home health service (06) | DRG 552 ==
LOC: ED 01:54 → EDHOLD 06:38 → 4E 06:38
PROVIDERS: Emergency Medicine; ADMIT Internal Medicine
DX: S22.011A Stable burst fracture of first thoracic vertebra, initial encounter for closed fracture (principal); S12.500A Unspecified displaced fracture of sixth cervical vertebra, initial encounter for closed fracture; S12.600A Unspecified displaced fracture of seventh cervical vertebra, initial encounter for closed fracture; J44.1 Chronic obstructive pulmonary disease with (acute) exacerbation; I50.32 Chronic diastolic (congestive) heart failure; I13.0 Hypertensive heart and chronic kidney disease with heart failure and stage 1 through stage 4 chronic kidney disease, or unspecified chronic kidney disease; N17.9 Acute kidney failure, unspecified; N39.0 Urinary tract infection, site not specified; J96.10 Chronic respiratory failure, unspecified whether with hypoxia or hypercapnia; N18.3 Chronic kidney disease, stage 3 (moderate); F32.9 Major depressive disorder, single episode, unspecified; R31.9 Hematuria, unspecified; W06.XXXA Fall from bed, initial encounter; M48.02 Spinal stenosis, cervical region; F41.1 Generalized anxiety disorder; M47.896 Other spondylosis, lumbar region; R62.7 Adult failure to thrive; E11.22 Type 2 diabetes mellitus with diabetic chronic kidney disease; E03.9 Hypothyroidism, unspecified; M81.0 Age-related osteoporosis without current pathological fracture; G89.29 Other chronic pain; Y93.89 Activity, other specified; Y92.89 Other specified places as the place of occurrence of the external cause; Y99.8 Other external cause status; Z68.35 Body mass index [BMI] 35.0-35.9, adult; Z90.710 Acquired absence of both cervix and uterus; Z83.3 Family history of diabetes mellitus; Z82.49 Family history of ischemic heart disease and other diseases of the circulatory system; Z79.4 Long term (current) use of insulin; Z99.81 Dependence on supplemental oxygen

== ENCOUNTER 2019-10-21 14:57 | Inpatient (IN) | payer OTHER ==
[~2019-10-21] VITALS: Ht 154.9 cm; Wt 75.5 kg
[~2019-10-21 14:57] MED LIST changes: +GLIPIZIDE2.5 MG PO
--- NOTE | 2019-10-21 15:46 | NUR ---
MSADMTime: N A 84 year old admitted to under services of DR. GRIFFIN ENGLE,MATIAS Arambula Pt. arrived via wheel chair from [place]. Chief complaint:CHANGE IN MENTAL STATUS . GT NG
[2019-10-21 16:00] VITALS: BP 134/72
--- NOTE | 2019-10-21 17:13 | NUR ---
DR. GATES NOTIFIED OF CONSULT.
[2019-10-21 18:36] LABS: BILIRUBIN NEGATIVE (NEGATIVE); BLOOD NEGATIVE (NEGATIVE); CLARITY CLEAR (CLEAR); COLOR YELLOW (YELLOW); GLUCOSE NEGATIVE (NEGATIVE); KETONE NEGATIVE (NEGATIVE); LEUKO ESTERASE 1+ (NEGATIVE); NITRITE NEGATIVE (NEGATIVE); UROBILINOGEN 0.2 E.U./dl (0.2-1.0)
[2019-10-21 18:47] LABS: EPITHELIAL CELLS 21-30
--- NOTE | 2019-10-21 22:12 | NUR ---
PATIENT WENT TO TAKE MEDS AND THEN HANDED THEM BACK STATING SHE "WILL NOT TAKE THEM" AND WOULD "SPIT THEM OUT" IF GIVEN TO HER. EXPLAINED RATIONALE FOR MEDICATIONS. PATIENT STILL REFUSING. WILL TRY AGAIN.
--- NOTE | 2019-10-21 22:46 | NUR ---
SECOND ATTEMPT TO GIVE PATIENT HER MEDICATIONS. SHE IS STILL REFUSING HER MEDICATIONS AT THIS TIME.
--- NOTE | 2019-10-21 22:48 | NUR ---
ENTERED PATIENT'S ROOM AND FOUND THAT SHE TOOK OUT HER IV. PATIENT STATED "I DON'T NEED THAT THING". IV WAS ON THE FLOOR AND THE PATIENT IS REFUSING TO LET ME PUT IN ANOTHER IV.
--- NOTE | 2019-10-21 23:12 | NUR ---
PATIENT ASKED FOR HER MEDICATIONS AND TOOK THEM. NO OTHER COMPLAINTS AT THIS TIME. CALL LIGHT WITHIN REACH. WILL CONTINUE TO MONITOR.
[2019-10-22] VITALS: BP 126/97
[2019-10-22 06:58] LABS: BASO % 0.5 % (0.0-1.0); EOS # 0.1 10*3/uL (0.0-0.4); EOS % 1.8 % (1.0-4.0); HEMATOCRIT 36.8 % (37.0-47.0); LYMPH # 1.6 10*3/uL (1.3-4.4); LYMPH % 24.6 % (27.0-41.0); MEAN CELL VOLUME 95.6 fl (81.0-99.0); MEAN CORPUSCULAR HGB 31.2 pg (27.0-31.0); MEAN CORPUSCULAR HGB CONC 32.6 g/dl (33.0-37.0); MEAN PLATELET VOLUME 10.2 fl (9.6-12.3); MONO # 0.5 10*3/uL (0.1-1.0); MONO % 8.2 % (3.0-9.0); NEUT # 4.2 10*3/uL (2.3-7.9); PLATELET COUNT AUTOMATED 185 10*3/uL (130-400); RED BLOOD COUNT 3.85 10*6/uL (4.10-5.10); RED CELL DISTRI WIDTH 13.8 % (0-14.5); WHITE BLOOD COUNT 6.6 10*3/uL (4.8-10.8)
[2019-10-22 07:15] LABS: CREATININE 1.3 mg/dL (0.55-1.02); POTASSIUM 4.2 mmol/L (3.5-5.1)
[2019-10-22 08:00] VITALS: BP 135/58
--- NOTE | 2019-10-22 09:32 | NUR ---
DAUGHTER AND POA (MAREK) CALLED IN AND STATED SHE WOULD LIKE TO CHANGE HER MOMS CODE STATUS TO DNR-CC. VERIFIED BY 2ND RN AMANDA MEHTA AND APPROPRIATE PAPERWORK PRINTED AND PLACED ON CHART.
--- NOTE | 2019-10-22 10:30 | NUR ---
Meat Stock Clerk in to see patient. She is ambulating in her room. She states she is trying to figure out a way to get home. She starts ambulating out of her room with her walker. She doesn't like to stay in her room as she says it is to small. Nurse in room. Will reach out to her daughter. She lives at [facility]. [facility] was ordered on last admission.
--- NOTE | 2019-10-22 13:30 | NUR ---
Attempted to reach daughter, Jossie, at [phone] regarding discharge planning with no answer, no voicemail. Will try at a later time.
--- NOTE | 2019-10-22 13:46 | NUR ---
PHYSICAL THERAPY Pt was discharged 10/20/19 to [facility] and returned to hospital 10/21/19 due to confusion and hallucinations. Orders for PT were received at this admission, however continue to defer any PT intervention as per last hospitalization pt dx with T1 burst fx and spinous process fx C6-7 w subluxation after a fall at the facility. MRI and neurosurgery recomended however pt/family refusing any intervention at the time except for soft cervical collar. At that time PT/OT deferred due concerns for causing further harm/injury discussed at length with case managment and pt/family aware of no therapy intervention at that time. There has been no change in treatment status per MD's present H&P continue to treat conservatively, therefore will discontinue PT orders at this time. Khadijah Fulton PT
[2019-10-22 16:00] VITALS: BP 117/63
--- NOTE | 2019-10-22 18:21 | NUR ---
PER DR MOYA ABLE TO LEAVE IV OUT
--- NOTE | 2019-10-22 20:52 | NUR ---
24 HR chart check completed.
[2019-10-23] VITALS: BP 115/75
--- NOTE | 2019-10-23 01:10 | NUR ---
Patient resting quietly with no c/o discomfort. Respirations easy and regular. Vital signs stable. No overt distress. BALTAZAR GAN
--- NOTE | 2019-10-23 05:23 | NUR ---
PATIENT REFUSING MEDICATIONS AT THIS TIME. PATIENT IS STILL CONFUSED AND STATED SHE DOES NOT NEED THEM. TRIED TO REORIENT THE PATIENT TO LOCATION AND LET HER KNOW SHE WAS IN THE HOSPITAL AND WHY SHE NEEDED THE MEDICATIONS. PATIENT STILL CONFUSED AND REFUSING MEDICATIONS AT THIS TIME. WILL TRY AGAIN.
--- NOTE | 2019-10-23 06:00 | NUR ---
SECOND ATTEMPT AT ADMINISTERING MEDICATIONS. PATIENT STILL REFUSING. WILL TRY AGAIN.
--- NOTE | 2019-10-23 06:26 | NUR ---
THIRD ATTEMPT AT ADMINISTERING MEDICATIONS. PATIENT IS STILL REFUSING AT THIS TIME. MEDICATIONS WASTED. PATIENT'S CALL LIGHT IS WITHIN REACH. WILL CONTINUE TO MONITOR.
[2019-10-23 08:00] VITALS: BP 120/64
--- NOTE | 2019-10-23 09:18 | NUR ---
Spoke to daughter, Jossie, regarding discharge planning. She would like her mother to go to [facility] and [facility] for SNF. corrections caseworker notified.
[2019-10-23 09:50] VITALS: BP 112/70
--- NOTE | 2019-10-23 11:07 | NUR ---
Spoke to Dr. Leonardo regarding therapy evals for SNF. New orders received for ambulate only for PT/OT. Therapy notified.
--- NOTE | 2019-10-23 11:20 | NUR ---
Spoke to Dr. Leonardo regarding therapy asking if patient can use a forward wheeled walker. New orders received for patient to work with therapy and use a front wheeled walker.
--- NOTE | 2019-10-23 13:07 | NUR ---
ATTEMPT MADE TO OBTAIN IV ACCESS FOR ANTIBIOTIC ADDED. PT IS NOT COMPLIANT AND BECOMES AGITATED WHEN ATTEMPT MADE. PHYSICIAN NOTIFIED AND GIVES ORDERS TO DISCONTINUE IV ZOSYN AND ADD PO AUGMENTIN. WILL NOTIFY PATIENT.
--- NOTE | 2019-10-23 13:30 | NUR ---
Patient was discharged 10/20/19 to [facility] apt and returned 10/21/19 d/t confusion, hallucinations. At the time of her last admission, OT was on hold d/t T1 burst fracture and spinous process fracture C6-7 with subluxation after a fall at her apartment. There were serious concerns for causing further injury discussed with case management, regional rehabilitation director and family informed of no therapy at that time. There has been no change in patient since her last admission but Dr Leonardo orders OT/PT and that patient was able to use a forward wheeled walker. OT/PT discussed concern with daughter about risk of spinal cord complications with the spine instability and that patient would noT qualify for SNF as therapy is contraindicated with her current instable spine. Daughter verbalized her understanding and said "so there is no use having OT/PT evaluation if she would not qualify for SNF?" OT/PT explained that a person has to be able to participate in the therapy program and that there are reasonable expectations for improvement to qualify for SNF. OT/PT suggested home w/ hospice care or home to her apt with 24 hr supervision and assist. Daughter gave non-verbal look and verbalized that patient does not need 24 hr care and that patient was ambulating in her apt when she took her home 10/20/19. Daughter felt that when the patient was treated for her new UTI that she would better be able to move around. Daughter did not want OT/PT evaluation since patient would not qualify for SNF. In the patient's room, while discussing above with daughter, patient continued to roll side to side verbalizing that her back hurt. OT informed casework supervisor; Aydee of the above and Aydee reported she would speak with the family. Discharge OT referral at this time. Charito Murray OTR/l
--- NOTE | 2019-10-23 13:45 | NUR ---
PT DAUGHTER ARRIVES TO HOSPITAL AND STATES THAT SHE WOULD LIKE TO GIVE HER MOM SOMETHING TO CALM HER DOWN AND THEN TRY AGAIN FOR IV ACCESS. PT DAUGHTER STATES THAT SHE WOULD LIKE FOR PATIENT TO TAKE ANTIBIOTIC VIA IV VERSUS PO SINCE IT WILL TREAT THE INFECTION BETTER. WILL NOTIFY PHYSICIAN.
--- NOTE | 2019-10-23 14:15 | NUR ---
IV started left antecubital with #22 protective cath after 2 attempts. Site prepped with Chloroprep. Sterile dressing applied. Patient tolerated procedure well. IV site locked with normal saline at this time. JOSEPH LEAL
--- NOTE | 2019-10-23 14:30 | NUR ---
DR MOYA NOTIFIED THAT PT NOW HAS IV ACCESS AND THAT PT DAUGHTER WOULD LIKE TO TRY IV ZOSYN NOW INSTEAD OF PO AUGMENTIN. IV ZOSYN ORDERED ADDED PER ORDERS GIVEN AND PO AUGMENTIN DISCONTINUED. XANAX 0.25MG CHANGED FROM HS TO BID PRN PER DAUGHTER REQUEST AND ORDERS OBTAINED BY DR MOYA.
--- NOTE | 2019-10-23 15:40 | NUR ---
PHYSICAL THERAPY Pt was discharged from [facility] 10/20/19 back to [facility] facility after a fall sustaining T1 burst fx with C6-7 spinous process fx with bony retropulsion at T1 further MRI and neurosurgery consult were recomended however pt/dtgr (who is a nurse) declined wanted conseverative rx only, pt issued soft cx collar. Pt was not seen by PT/OT at that admission and orders were discontinued due to the extensive injury of spinal area, no rx per family and concern for further injury/complication of spinal area if participated in therapy. Pt then readmitted 10/21/19 w UTI with confusion. PT/OT reconsulted with orders by MD for amb only and able to use FWW. However, no change or decision in status of rx of spinal area has changed. PT/OT continue to be contraindicated with her current unstable spine. Daughter verbalized her understanding and said "so there is no use having OT/PT evaluation if she would not qualify for SNF?" OT/PT explained that a person has to be able to participate in the therapy program and that there are reasonable expectations for improvement to qualify for SNF. OT/PT suggested home w/ hospice care or home to her apt with 24 hr supervision and assist. Daughter gave non-verbal look and verbalized that patient does not need 24 hr care and that patient was ambulating in her apt when she took her home 10/20/19. Daughter felt that when the patient was treated for her new UTI that she would better be able to move around. Daughter did not want OT/PT evaluation since patient would not qualify for SNF as per disucsussion with PT/OT in the room pt could not safely particpate in the therapy program with a spinal injury that is not stable. Pt was in be at the time of the discussion with dgtr c/o LBP. PT/OT orders discontinued at this time and above conversation was discussed with Aydee from case management who will discuss discharge planning with daughter. Khadijah Fulton PT .
--- NOTE | 2019-10-23 15:59 | NUR ---
Discussed discharge planning with daughter, Jossie. Plan is for the patient to go back to [facility] with home health care services. When provided with a list of agencies she choose [facility]. Discussed SNF and explained she needs to be skilled to go and therapy is not able to skill her. Other skills would be wound care or IV therapy but she would need 2 skills. Daughter verbalized an understanding. Will follow up on Saturday with daughter.
[2019-10-23 16:00] VITALS: BP 137/84
[2019-10-23 20:00] VITALS: BP 135/84
--- NOTE | 2019-10-23 20:28 | NUR ---
24 HR chart check completed.
[2019-10-24] VITALS: BP 130/75
--- NOTE | 2019-10-24 07:34 | NUR ---
NOTIFIED DR GROVE OF LAB RESULT OF POSITIVE VRE URINE.
[2019-10-24 08:00] VITALS: BP 120/71
--- NOTE | 2019-10-24 09:44 | NUR ---
SPOKE WITH DAUGHTER REGARDING PATIENT'S PLAN OF CARE. DAUGHTER STATED SHE WOULD CONTACT DR GROVE FOR ANY FURTHER QUESTIONS.
[2019-10-24 16:00] VITALS: BP 108/65
--- NOTE | 2019-10-24 17:40 | NUR ---
DA NOT ADMINISTERED: THERAPIST NA
--- NOTE | 2019-10-24 19:48 | NUR ---
PT VISITING WITH FAMILY IN ROOM AT THIS TIME.
[2019-10-24 20:00] VITALS: BP 148/71
--- NOTE | 2019-10-24 20:39 | NUR ---
PT GIVEN TYLENOL WITH ULTRAM AT THIS TIME PER REQUEST BY PT FOR PAIN TO BACK. WILL MONITOR FOR EFFECTIVENESS. CALL LIGHT IN REACH.
--- NOTE | 2019-10-24 21:40 | NUR ---
TYLENOL AND SCHEDULED ULTRAM APPEAR EFFECTIVE.
[2019-10-25] VITALS: BP 135/64
--- NOTE | 2019-10-25 00:41 | NUR ---
PT RESTING IN BED. RESPIRATIONS EASY AND UNLABORED ON ROOM AIR. NO S/S OF DISTRESS NOTED. PT SLEEPING AND NOT AWAKENED AT THIS TIME. ALL SAFETY MEASURES IN PLACE. CALL LIGHT IN REACH.
--- NOTE | 2019-10-25 06:38 | NUR ---
PT MOVES FROM ELLIOT CHAIR BACK TO BED AT THIS TIME.
[2019-10-25 07:36] LABS: CREATININE 1.29 mg/dL (0.55-1.02); POTASSIUM 3.8 mmol/L (3.5-5.1)
[2019-10-25 08:00] VITALS: BP 117/57
[2019-10-25 08:25] LABS: BASO % 0.6 % (0.0-1.0); EOS # 0.2 10*3/uL (0.0-0.4); EOS % 3.1 % (1.0-4.0); HEMATOCRIT 36.2 % (37.0-47.0); HEMOGLOBIN 11.7 g/dl (12.0-16.0); LYMPH # 1.5 10*3/uL (1.3-4.4); LYMPH % 22.5 % (27.0-41.0); MEAN CELL VOLUME 98.4 fl (81.0-99.0); MEAN CORPUSCULAR HGB 31.8 pg (27.0-31.0); MEAN CORPUSCULAR HGB CONC 32.3 g/dl (33.0-37.0); MEAN PLATELET VOLUME 10.8 fl (9.6-12.3); MONO # 0.6 10*3/uL (0.1-1.0); MONO % 8.6 % (3.0-9.0); NEUT # 4.4 10*3/uL (2.3-7.9); NEUT % 64.6 % (47.0-73.0); PLATELET COUNT AUTOMATED 208 10*3/uL (130-400); RED BLOOD COUNT 3.68 10*6/uL (4.10-5.10); RED CELL DISTRI WIDTH 14.2 % (0-14.5); WHITE BLOOD COUNT 6.8 10*3/uL (4.8-10.8)
--- NOTE | 2019-10-25 09:03 | NUR ---
ATTEMPTED TO GIVE PATIENT XANAX DUE TO PATIENT OUTBURST, ATTEMPT TO LEAVE. CALLED PATIENTS DAUGHTER TO TALK TO HER, ATTEMPT TO CALM PATIENT DOWN. PT IS NOW SITTING IN ELLIOT CHAIR WITH CHAIR ALARM ON.
--- NOTE | 2019-10-25 14:34 | NUR ---
PT COMPLAIN OF LEFT ARM HURTING, PRN MEDICATIONS GIVEN. PT IS CONFUSE, UP IN ELLIOT CHAIR, ALARM ON
[2019-10-25 16:00] VITALS: BP 140/51
--- NOTE | 2019-10-25 18:00 | NUR ---
PT ASSISTED BACK TO BED, ALARM ON. PT MORE ALERT AND COORPORATIVE. PT REMAINS CONFUSED TO PLACE/TIME.
[2019-10-25 20:00] VITALS: BP 118/69
[2019-10-26] VITALS: BP 112/56
--- NOTE | 2019-10-26 04:56 | NUR ---
24 HOUR CHART CHECK COMPLETE.
--- NOTE | 2019-10-26 05:45 | NUR ---
PT SPIT OUT MORNING SYNTHROID AND PROTONIX. STATES SHE "DOESN'T WANT THEM".
[2019-10-26 06:21] LABS: BASO % 0.6 % (0.0-1.0); EOS # 0.2 10*3/uL (0.0-0.4); EOS % 3.1 % (1.0-4.0); HEMATOCRIT 35.3 % (37.0-47.0); HEMOGLOBIN 11.3 g/dl (12.0-16.0); LYMPH # 2.2 10*3/uL (1.3-4.4); LYMPH % 31.1 % (27.0-41.0); MEAN CELL VOLUME 98.6 fl (81.0-99.0); MEAN CORPUSCULAR HGB 31.6 pg (27.0-31.0); MEAN PLATELET VOLUME 10.3 fl (9.6-12.3); MONO # 0.6 10*3/uL (0.1-1.0); NEUT % 55.9 % (47.0-73.0); PLATELET COUNT AUTOMATED 218 10*3/uL (130-400); RED BLOOD COUNT 3.58 10*6/uL (4.10-5.10); RED CELL DISTRI WIDTH 14.3 % (0-14.5); WHITE BLOOD COUNT 7.1 10*3/uL (4.8-10.8)
[2019-10-26 07:03] LABS: CREATININE 1.38 mg/dL (0.55-1.02); POTASSIUM 4.1 mmol/L (3.5-5.1)
[2019-10-26 08:00] VITALS: BP 136/90
--- NOTE | 2019-10-26 08:30 | NUR ---
PHYSICAL THERAPY Received phone call from regarding seeing pt for Phyiscal Therapy Discussed at length with MD regarding concerns for further injury of pt's spinal cord in performing therapy as at initial time of injury MRI and neurosurgical consult recomended immediately. No follow up or intervention was wanted per pt/dgtr. Also discussed meeting with dgtr on 10/23/19 in which concerns were again addressed regarding therapy and causing further injury if pt was to participate in PT/OT and attend SNF. At that time it was agreed by dgtr to not see pt as PT/OT not appropriate if unable to participate safely in activity and recomended pt if to return to assisted living to have/hire further care for 24 hour coverage for safety. Ended phone call by stating I would discuss situation with my rehabilitation clerk Saman Wolf, of whom I have been updating reg situation periodically during pt's stay, to discuss pt's status and any further reccomendations. Khadijah Fulton PT and further recommendations.
--- NOTE | 2019-10-26 08:30 | NUR ---
Dr. Scanlon phoned OT/PT office and requested speaking with PT. Charito Murray OTR/L
--- NOTE | 2019-10-26 09:05 | NUR ---
IN TO SEE PATIENT, ORDERED MRI. DR. GROVE SPOKE TO PHYSICAL THERAPY, THEY WILL NOT SEE THE PATIENT DUE TO SPINAL FRACTURE. WAIT FOR MRI RESULTS AND PLAN FOR DISCARGE TO SKILLED FACILITY WHEN APPROPRIATE. PT SITTING UP IN CHAIR WITH CHAIR ALARM ON. REORIENTATION TO HOSPITAL AND TIME ATTEMPTED. PT CALM AND COORPORATIVE AT THIS TIME. SPOKE TO PATIETNS DAUGHTER THIS MORNING AND WILL UPDATE HER WITH PLAN
--- NOTE | 2019-10-26 09:10 | NUR ---
PHYSICAL THERAPY Met this AM with Mayra Torres [facility] along with Clem Wolf rehab trainer and OT staff regarding patient after phone call with this morning. Discussed at length with MODELING DIRECTOR and rehab trainer regarding pt's intial injury/encounter back in 10/16/19. MRI and neurosurgical consult recomended immediatley but pt/dgtr declined. PT/OT deferred at that time due conservative treatment no imaging or follow up only soft cx collar issued by internal medicine doctor. Pt discharged back to assited living and returned 24 hours later with confusion. Spinal status had not changed, PT/OT again consulted for rehab. PT/OT spoke with dgtr personally on 10/23/19 again voicing concerns educating dgtr regarding potentially causing further harm and spinal cord injury. Dgtr agreed at that time no PT/OT due to pt not being able to participate in therapy as we could not recomend further rehab if this could cause further spinal injury and no follow up/recomendations from neurosurgeon per pt/dgtr wanted. After phone call with wanting to skill pt for therapy and attempting to explain rehab viewpoint as above meeting was held this AM to disuss pt's status. In the end per MODELING DIRECTOR and experience design director comprimise was reached for eval only and to treat pt conservatively with CABG precautions...no push/pull, shld flexion below 90 and not amb with FWW with the understanding that further neurological consulatation NEEDED in order to clarify/guide futher treament and activity. Khadijah Fulton PT
--- NOTE | 2019-10-26 09:10 | NUR ---
This OTR and PT; Khadijah Fulton, consulted with Divisional Storekeeper;Saman Wolf,and [employer] Programmer; Mayra Torres to discuss phone conversation with PT and Dr Scanlon and prior course of events leading up to todays phone call with Dr. Scanlon Please See OT note 10/23/19 for prior events. Per PT, Dr Scanlon insistant that patient needed to go to SNF but both OT and PT were concerned that without an MRI and a neurosurgical consult, that patient is at serious risk to spinal cord and or further injury of her spine. After relay to the above persons of 10/23/19 event and conversation with daughter that OT/PT could not skill patient as there are no activity guidelines from a neuro specialist for further treatment, a compromise was suggested as follows: PT could assess patient with CABG precautions; not allowing pushing/pulling/lifting,and no ww use for these movements and recommend outpatient neurospecialist consult to further progress treatment at SNF. Charito Murray OTR/L
--- NOTE | 2019-10-26 10:15 | NUR ---
At utilization review meeting it was determined that both OT and PT referrals were needed for SNF. Charito Murray OTR/l
--- NOTE | 2019-10-26 10:45 | NUR ---
PT SITTING IN RECLINER, CHAIR ALARM ON. PT STATE RIGHT ARM PAIN, PRN MEDICATIONS GIVEN.
--- NOTE | 2019-10-26 11:10 | NUR ---
Occupational Therapy evaluation completed on 5 with full eval to follow. 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 Recommend OT per pOC and SNF w/ treatment with no BUE use above 90 degrees, no pulling, no pushing and no ww use until neurosurgical consult can recommend activity guidelines to further progress patient in therapy. Thank you Charito Murray OTR/l
--- NOTE | 2019-10-26 11:53 | NUR ---
RETURN FROM MRI. PATIENT ATTEMPTED TO COMPLETE MRI, PT IS UNABLE TO DO TEST DUE TO INABLILITY TO LAY FLAT.
--- NOTE | 2019-10-26 11:57 | NUR ---
CALLED DR. GROVE OFFICE, LEFT MESSAGE WITH OFFICE STAFF THAT PATIENT COULD NOT DO MRI DUE TO UNABLE TO LAY FLAT.
--- NOTE | 2019-10-26 12:09 | NUR ---
BODY ENGINEER faxed new referral to [facility]. Will need PT/OT Assessments to complete referral. -DIANNA MaiW
--- NOTE | 2019-10-26 14:39 | NUR ---
BOX STORAGE WORKER faxed PT/OT Evals to [facility] -SHANI Mai
--- NOTE | 2019-10-26 14:47 | NUR ---
PT SITTING IN BEDSIDE CHAIR, CHAIR ALARM ON. DAUGHTER VISITING BEDSIDE.
[2019-10-26 16:00] VITALS: BP 94/50
[2019-10-26 20:00] VITALS: BP 131/91
[2019-10-27] VITALS: BP 125/61
--- NOTE | 2019-10-27 00:45 | NUR ---
PATIENT IS RESTING IN BED WITH EASY AND REGULAR RESPERS ON ROOM AIR. ASSESSMENT IS COMPLETE WITH NO S/S OF DISTRESS OR C/O NOTED AT THIS TIME. BED IS LOW, LOCKED, ALARMED, AND CALL LIGHT IS WITHIN REACH. SEE SHIFT ASSESSMENT.
--- NOTE | 2019-10-27 02:25 | NUR ---
PRN TYLENOL, XANAX, AND ULTRAM GIVEN AT THIS TIME FOR RIGHT ARM PAIN AND ANXIETY. CALL LIGHT IS WITHIN REACH, WILL MONITOR EFFECT.
--- NOTE | 2019-10-27 02:30 | NUR ---
PATIENT SHOWERED, DENTURES CLEANED, AND BEDLINENS CHANGED WITH HELP OF PATIENT ATTENDENTS. PATIENT ASSISTED BACK TO BED WHERE IT IS ALARMED, AND CALL LIGHT IS WITHIN REACH.
--- NOTE | 2019-10-27 03:00 | NUR ---
PATIENT SLEEPING WITH EASY AND REGULAR RESPERS ON ROOM AIR. CALL LIGHT IS WITHIN REACH.
--- NOTE | 2019-10-27 07:30 | NUR ---
PT RESTING IN BED. VOICES NO CONCERNS AT THIS TIME. RESPS EASY AND NON LABORED. NO S/S OF DISTRESS NOTED. WHITE BOARD UPDATED. BED ALARM ON. CALL LIGHT WITHIN REACH.
[2019-10-27 08:00] VITALS: BP 109/58
--- NOTE | 2019-10-27 10:17 | NUR ---
OT NOTE Pt was seen this A.M. 1:1 for 24 minute OT session. Upon arrival pt was supine in bed. Pt identified by name and and presented with increased confusion as indicated by being non oriented to place. Pt was educated on spinal/sternal precautions consisting of no pushing, no pulling, no raising her arms above 90 degrees, log rolling, no bending, and no twisting. Requested for pt to repeat the precautions and pt was unable to verbalize any of them. Pt transferred supine to sit EOB with maxA X 2 due to being unable to self log roll or process commands for log rolling. Pt was again educated on no pushing from bed surface when transferring sit to stand and presented with poor carry over requiring verbal and tactile prompts to correct. Pt completed multiple sit to stand transfers from bed level with CGA while arms were crossed over her chest. Pt was very impulsive increasing risk of falls requiring constant verbal prompts for slowing down. Functional mobility completed around the room with CGA, pt had several LOB episodes that required Jaxon to correct. Pt then returned to the EOB where she completed ADL grooming task consisting of washing her face and brushing her hair with SBA and verbal prompts for compensatory techniques due to no shoulder flexion above 90 degree. Pt was able to follow through with good carry over. Pt then transferred back into bed sit to supine with maxA X 2 due to being unable to follow spinal/sternal precautions. Throughout entire session pt had multiple complaints of R arm pain. When asked if it was tingling or numb pt reported "no, it just hurts" due to confusion pt was unable to rate on 0-10 pain scale and was unable to report rather it was a chronic pain or a new onset and was also unable to give specific location of pain other than "my R arm." Pt was left supine in bed with call light in hand, tray table in place, and bed alarm activated for safety. Continue with rec D/C plan to SNF. ALEJANDRO eLger
--- NOTE | 2019-10-27 10:21 | NUR ---
PHYSICAL THERAPY TREATMENT TIME: 09:50 AM - 10:10 20 MINUTES Patient presented to therapy in supine with head of bed elevated and L side lying position with head NOT in alignment. Patient reports R UE pain , BUT NO NEURO SYMPTOMS , such as numbness or tingling in the fingers, hands or arms. Patient was identified by name and on wristband. Patient gives informed consent for treatment. Patient was educated both VERBAL and with VISUAL DEMONSTRATIONS about her SPINAL PRECAUTIONS and CARDIAC PRECAUTIONS that she has in order to prevent further injury or damage to the spinal cord. Patient specifically educated in avoiding pushing and pulling with UEs, not using Walker for the above reasons, LOG ROLLING TO AVOID TWISTING AT THE SPINE, SIT TO STANDING WITHOUT USE OF UEs, NO SHOULDER FLEXION ABOVE 90 DEGREES, NO LIFTING, TWISTING, AND STABILIZING HER NECK IN IN -LINE POSITION WHEN TRANSFERRING OR LOG ROLLING. Patient demonstrated understanding of precautions. POP CORDOVA WAS PRESENT WITNESS TO PATIENT BEING EDUCATED BY THIS DIGITAL MARKETING PROGRAM MANAGER ON SPINAL AND CARDIAC PRECAUTIONS. Patient was somewhat confused during treatment this morning and did NOT know where she was. Patient performed supine to log rolling to L side-lying with head and spine in alignment with MAX A X 2 due to keeping the patient compliant with precautions. Patient transferred from L side-lying to sitting UPRIGHT on EOB with MAX A X 2 to keep patient in proper alignment. Patient sat on EOB with SBA with verbal cues and visual demonstrations for proper posture. Patient sit to stand from EOB with CGA X 2 with patient maintaining ARMS CROSSED and standing WITHOUT the use of UES. Patient ambulated 40' x 2 with CGA X 1 inside room only, due to isolation precautions, with 3 moderate LOB instances where she lost her balance and required MIN A X 1 to correct to upright position. Patient SAT on EOB WITHOUT use of UEs. Patient transferred back to supine in bed with MAX A X 2 to L side-lying and then MAX A X 2 to LOG ROLL back to supine in bed ,keeping head and spine aligned the entire transfer. Patient was left in supine in bed with head of bed elevated, call light within reach, and bed alarm activated. Patient was educated again on spinal and cardiac precautions to avoid bending , twisting , pushing /pulling and lifting the UEs > 90 degrees. Patient was also educated on the importance of wearing the neck brace for safety. Patient was 1:1 with this DIGITAL MARKETING PROGRAM MANAGER for 20 minutes total. RUSLAN RODRIGUEZ PTA
--- NOTE | 2019-10-27 10:36 | NUR ---
PRECERT has been started for [facility], as there are no beds at . -SHANI Mai
[2019-10-27 12:00] VITALS: BP 116/69
--- NOTE | 2019-10-27 12:14 | NUR ---
SPOKE WITH DR GROVE REGARDING PTS MRI. PT IS CURRENTLY STATING SHE WILL NOT BE TAKING ANY MEDICATIONS FOR TESTING. ALSO SPOKE WITH PTS DAUGHTER OVER THE PHONE WHO STATED PT IS UNABLE TO LIE FLAT AND CANT COMPLETE THE MRI. UPDATED DR GROVE. NO NEW ORDERS AT THIS TIME.
--- NOTE | 2019-10-27 14:33 | NUR ---
PT RESTING IN BED. VOICES NO CONCERNS AT THIS TIME. DAUGHTER AT BEDSIDE. UPDATED ON PLAN OF CARE, QUESTIONS ANSWERED. BED ALARM ON. CALL LIGHT WITHIN REACH
--- NOTE | 2019-10-27 14:50 | NUR ---
PT AMBULATING IN HALLWAY WITH DAUGHTER. REQUESTING ICE AND PAIN PILL FOR ARM PAIN.
--- NOTE | 2019-10-27 14:56 | NUR ---
PT COMPLAINS OF 7/10 ACHING LEFT ARM PAIN. MEDICATED PER ORDER. WILL MONITOR FOR RELIEF. ALSO GIVEN NEW ICE PACK. VOICES NO OTHER CONCERNS AT THIS TIME. RESTING IN BED. DAUGHTER IN ROOM. BED ALARM ON. CALL LIGHT WITHIN REACH.
[2019-10-27 16:00] VITALS: BP 107/47
--- NOTE | 2019-10-27 17:42 | NUR ---
Shift chart check completed.
[2019-10-27 19:55] VITALS: BP 123/66
--- NOTE | 2019-10-27 19:58 | NUR ---
PATIENT IS RESTING IN BED WITH EASY AND REGULAR RESPERS ON ROOM AIR. ASSESSMENT IS COMPLETE. PATIENT C/O PULSATING PAIN TO RIGHT ARM AND APPEARS TO BE IN DISTRESS. PRN TYLENOL AND XANAX GIVEN FOR PAIN AND ANXIETY. WILL MONITOR EFFECT, SEE SHIFT ASSESSMENT. BED IS LOW, LOCKED, ALARMED, AND CALL LIGHT IS WITHIN REACH.
[2019-10-27 20:00] VITALS: BP 123/66
--- NOTE | 2019-10-27 21:30 | NUR ---
PRN TYLENOL AND XANAX EFFECTIVE, PATIENT IS RESTING IN BED WITH EASY AND REGULAR RESPERS ON ROOM AIR. CALL LIGHT IS WITHIN REACH.
[2019-10-28] VITALS: BP 129/46
--- NOTE | 2019-10-28 02:51 | NUR ---
PATIENT IS AWAKE AND PLEASANT C/O PAIN TO RIGHT ARM/HAND. PRN TYLENOL AND ULTRAM PROVIDED. WILL CONTINUE TO MONITOR. BED IS LOW, LOCKED, ALARMED, AND CALL LIGHT IS WITHIN REACH.
--- NOTE | 2019-10-28 07:38 | NUR ---
VS STABLE- KRISTIN, A&O X2, SKIN WARM DRY AND INTACT, CAPILLARY REFILL <3, IV IN LEFT ARM NO S/S INFECTION, POSITIVE PEDAL PULSES, SKIN TURGOR NON-TENTING, HEART SOUNDS NORMAL 70 BPM, LUNGS DIMINISHED BILATERALLY, PO2 97% ON ROOM AIR, ABDOMEN SOFT NON-TENDER AND NON-DISTENDED, BOWEL SOUNDS X4, NO COMPLAINTS OF PAIN DURING THIS TIME, NO OTHER COMPLAINTS, PT PLEASANT AND COOPERATIVE, WILL CONTINUE TO ASSESS. BEVERLEY HERRING SPBARRYCC
[2019-10-28 07:58] VITALS: BP 130/70
--- NOTE | 2019-10-28 09:12 | NUR ---
OT NOTE Pt was seen this A.M. 1:1 for 17 minute OT session. Upon arrival pt was supine in bed. Pt identified by name and and had complaints of R arm pain, however was unable to rate on 0-10 pain scale or give specific location of pain. Requested for pt to verbalize any spinal/sternal precautions previously educated on in last session and pt was unable to name any of them. Pt was reeducated visual and verbal on no pushing, no pulling, no shoulder flexion above 90 degrees, no bending, and no twisting. Pt was again educated on log roll technique for bed mobility and pt was able to complete the roll onto her side with modA and then transferred supine to sit EOB with maxA X 2. Sit to stand completed from bed level with CGA and good carry over of no use of UE's. Functional mobility was then completed into the bathroom with CGA for safety. Pt then transferred on/off standard commode with CGA and good follow through of no UE use. Functional mobility was then completed back to the EOB where she was requesting to lay down due to fatigue. Pt then transferred back into bed with maxA x 2 for assist with log roll. There she was left with call light in hand, tray table in place, and bed alarm activated for safety. Continue with rec D/C plan to SNF. POP Leger/Zachery
--- NOTE | 2019-10-28 09:12 | NUR ---
Spoke to daughter, Jossie, regarding [facility] not having any bed availability. Discussed [facility] and patient would have a 50% co-pay. She is unsure her mother would want to pay that. Discussed [facility], [facility], and [facility]. [facility] no. [facility] is too far. Daughter states if [facility] is not going to have a bed available in the next couple of days then [facility]. social worker health services notified.
--- NOTE | 2019-10-28 09:19 | NUR ---
PRECERT will be required for [facility]. SATIN FINISHER faxed referral to [facility]. -SHANI Mai
--- NOTE | 2019-10-28 10:00 | NUR ---
PHYSICAL THERAPY TREATMENT TIME: 08:55 AM - 09:10 AM 15 MINUTES Patient presented to therapy in supine with head of bed elevated and report of pain in the R UE in the forearm. Patient has ice pack on forearm. Patient gives informed consent for treatment. Patient was identified by name and on wristband. Patient performed supine to LOG ROLLING TO L SIDE with MOD A X 2. Patient side-lying to sitting at EOB with MAX A X 2 with soft neck brace in place. Patient sat on EOB with SBA. Patient performed sit to stand from EOB with MOD A X 2 with verbal cues for keeping UEs crossed in front of her. Patient ambulated with no assistive device and CGA X 1 with soft neck brace on for 40' x 1 and no LOB or SOB. Patient performed sitting in low chair without use of UEs with MIN A X 1. Patient sit to stand out of low chair with MOD A X 2 and UEs CROSSED IN FRONT OF HER CHEST. Patient was educated again in not pushing or pulling with UEs/ maintaining head in alignment/ using soft neck brace/ no shoulder flexion above 90 degrees/ NOT USING WALKER FOR GAIT/ no twisting/ performing log rolling/ and not lifting. Patient transferred back to supine in bed with MAX A X 2 MAINTAINING head alignment. Patient was left in supine with head of bed elevated, call light within reach , and bed alarm activated. Patient was 1:1 with this GRADUATE INTERN FOR 15 MINUTES TOTAL. POP Sheehan present as witness for this treatment. RUSLAN FARRIS GRADUATE INTERN
--- NOTE | 2019-10-28 10:48 | NUR ---
PT C/O PAIN AND IS BRACING HER RIGHT WRIST. DR MOYA NOTIFIED AND NEW ORDERS RECEIVED.
--- NOTE | 2019-10-28 10:51 | NUR ---
OFFICE STAFF WAS NOTIFIED OF DR. BLANCAS CONSULT. RESPONSE OF NOTIFICATION WAS OK I'LL GIVE THIS TO HER. ANDREW MOREL
--- NOTE | 2019-10-28 13:28 | NUR ---
Patient has been accepted at [facility]. PRECERT has been obtained. If medically stable patient can go to [facility] today. -SHANI Mai
--- NOTE | 2019-10-28 13:28 | NUR ---
Spoke to Vangie in Dr. Garcia's office regarding if patient was able to discharge today. She will speak to Dr. Garcia. Awaiting response.
--- NOTE | 2019-10-28 13:36 | NUR ---
PT C/O RIGHT WRIST PAIN OF 8/10. TRAMADOL GIVEN AT THIS TIME. WILL CONT TO MONITOR. CALL LIGHT IN REACH.
--- NOTE | 2019-10-28 14:34 | NUR ---
PT RESTING QUIETLY. WILL CONT TO MONITOR. CALL LIGHT IN REACH.
[2019-10-28 16:00] VITALS: BP 133/78
[2019-10-28 20:00] VITALS: BP 114/51
[2019-10-29] VITALS: BP 158/60
--- NOTE | 2019-10-29 00:44 | NUR ---
Patient resting quietly with no c/o discomfort. Respirations easy and regular. Vital signs stable. No overt distress. BALTAZAR GAN
--- NOTE | 2019-10-29 07:32 | NUR ---
Notified Dr. Leonardo patient can be discharged to [facility] today if medically stable. Plan is to discharge patient today.
--- NOTE | 2019-10-29 07:58 | NUR ---
PRECERT has been obtained for [facility]. Patient is able to go today if medically stable. TYPING OFFICE WORKER faxed updates to [facility]. -SHANI Mai
[2019-10-29 08:00] VITALS: BP 143/69
[2019-10-29] MEDS ORDERED: LINEZOLID600 MG PO (10:07)
--- NOTE | 2019-10-29 10:44 | NUR ---
Patient is discharged to [facility]. Contacted daughter who stated she will transport but will not be here for about 2 hours. Faxed DC information to [facility] and notified of discharge. Notified steward/stewardess lounge Hoda
--- NOTE | 2019-10-29 13:39 | NUR ---
REPORT CALLED TO LARON AT [facility]
--- NOTE | 2019-10-29 15:22 | NUR ---
PT DISCHARGED AT THIS TIME TO [facility]. DAUGHTER TRANSPORTING PRIVATE CAR. IV REMOVED AND PRESSURE DRESSING APPLIED.
--- NOTE | 2019-10-30 08:01 | NUR ---
OCCUPATIONAL THERAPY CO-SIGN I approve of the Occupational Therapy notes written above. MAGALYS GARCIA OTR/Zachery
--- NOTE | 2019-10-30 08:03 | NUR ---
PHYSICAL THERAPY CO-SIGN I approve of the Physical Therapy notes written above. Khadijah Fulton PT
== END 2019-10-29 18:52 | disposition other institution (70) | DRG 689 ==
LOC: 5E 14:57
PROVIDERS: Internal Medicine; ADMIT Internal Medicine
DX: N39.0 Urinary tract infection, site not specified (principal); G93.41 Metabolic encephalopathy; S13.180A Subluxation of C7/T1 cervical vertebrae, initial encounter; S22.011A Stable burst fracture of first thoracic vertebra, initial encounter for closed fracture; I50.32 Chronic diastolic (congestive) heart failure; Z16.21 Resistance to vancomycin; I13.0 Hypertensive heart and chronic kidney disease with heart failure and stage 1 through stage 4 chronic kidney disease, or unspecified chronic kidney disease; S69.91XA Unspecified injury of right wrist, hand and finger(s), initial encounter; F41.1 Generalized anxiety disorder; J43.2 Centrilobular emphysema; Z66 Do not resuscitate; Z51.5 Encounter for palliative care; B95.2 Enterococcus as the cause of diseases classified elsewhere; E03.9 Hypothyroidism, unspecified; F32.9 Major depressive disorder, single episode, unspecified; R62.7 Adult failure to thrive; E11.22 Type 2 diabetes mellitus with diabetic chronic kidney disease; N18.3 Chronic kidney disease, stage 3 (moderate); M47.896 Other spondylosis, lumbar region; G89.29 Other chronic pain; M48.061 Spinal stenosis, lumbar region without neurogenic claudication; K21.0 Gastro-esophageal reflux disease with esophagitis; W19.XXXA Unspecified fall, initial encounter; Z68.31 Body mass index [BMI] 31.0-31.9, adult; Y93.89 Activity, other specified; Y92.89 Other specified places as the place of occurrence of the external cause; Y99.8 Other external cause status

== ENCOUNTER 2020-05-20 11:08 | Inpatient (IN) | payer OTHER ==
[~2020-05-20] VITALS: Ht 154.9 cm; Wt 50.5 kg
[~2020-05-20 11:08] MED LIST changes: +LINEZOLID600 MG PO
[2020-05-20 11:14] VITALS: BP 127/54
[2020-05-20] MEDS ORDERED: CIPROFLOXACIN500 M4 PO (11:28)
--- NOTE | 2020-05-20 11:32 | NUR ---
PUT HAT IN TOILET AND LET PATIENT AND DAUGHTER KNOW THAT WE NEED A SPECIMEN. DAUGHTER STATES SHE LIVES AT AN ASSISTED LIVING HOME AND SHE IS CONCERNED ABOUT HER BEING AT HOME BY HERSELF.
[2020-05-20 12:17] LABS: BASO % 0.4 % (0.0-1.0); EOS # 0.1 10*3/uL (0.0-0.4); EOS % 0.7 % (1.0-4.0); HEMATOCRIT 39.2 % (37.0-47.0); LYMPH # 1.5 10*3/uL (1.3-4.4); MEAN CELL VOLUME 95.8 fl (81.0-99.0); MEAN CORPUSCULAR HGB 30.8 pg (27.0-31.0); MEAN CORPUSCULAR HGB CONC 32.1 g/dl (33.0-37.0); MEAN PLATELET VOLUME 10.9 fl (9.6-12.3); MONO # 0.6 10*3/uL (0.1-1.0); MONO % 7.5 % (3.0-9.0); NEUT # 5.9 10*3/uL (2.3-7.9); PLATELET COUNT AUTOMATED 163 10*3/uL (130-400); RED BLOOD COUNT 4.09 10*6/uL (4.10-5.10); RED CELL DISTRI WIDTH 13.9 % (0-14.5); WHITE BLOOD COUNT 8.1 10*3/uL (4.8-10.8)
[2020-05-20 12:28] LABS: ACT PARTIAL THROMBO TIME 30.9 SECONDS (20.0-32.1); INTERNATIONAL NORM RATIO 1.5 (2.0-3.5)
--- NOTE | 2020-05-20 12:28 | NUR ---
PATIENT AMBULATED TO BATHROOM WITH ASSISTANCE FROM DAUGHTER, ATTEMPTING URINE SPECIMEN
[2020-05-20 12:35] LABS: ALBUMIN 3.5 gm/dl (3.1-4.5); ALKALINE PHOSPHATASE 65 U/L (45-117); BUN 30 mg/dl (7-24); CHLORIDE 105 mmol/L (98-107); CREATININE 1.37 mg/dL (0.55-1.02); POTASSIUM 3.6 mmol/L (3.5-5.1); SGOT/AST 17 IU/L (3-35); SGPT/ALT 16 U/L (12-78); SODIUM 136 mmol/L (136-145); TOTAL PROTEIN 8.1 gm/dL (6.4-8.2)
[2020-05-20 12:36] LABS: TROPONIN I < 0.015 ng/ml (<0.045)
--- NOTE | 2020-05-20 12:45 | NUR ---
PATIENT STATES TYLENOL SEEMED TO HELP A LITTLE. UNABLE TO GIVE NUMERIC VALUE
[2020-05-20 12:55] LABS: BILIRUBIN NEGATIVE (NEGATIVE); BLOOD NEGATIVE (NEGATIVE); CLARITY CLOUDY (CLEAR); COLOR YELLOW (YELLOW); EPITHELIAL CELLS TNTC; GLUCOSE NEGATIVE (NEGATIVE); KETONE NEGATIVE (NEGATIVE); LEUKO ESTERASE 1+ (NEGATIVE); NITRITE NEGATIVE (NEGATIVE); SPECIFIC GRAVITY 1.025 (1.005-1.030); UROBILINOGEN 0.2 E.U./dl (0.2-1.0)
[2020-05-20 12:56] VITALS: BP 111/70
--- NOTE | 2020-05-20 13:53 | NUR ---
RECEIVING NURSE NEEDS 15 MINUTES
[2020-05-20 14:15] VITALS: BP 147/67
--- NOTE | 2020-05-20 14:15 | NUR ---
MSATime: 1415 A 84 year old FEMALE admitted to 5E under services of ML MELGAR MD. Pt. arrived via stretcher from ER. Chief complaint: CONFUSSION, LEFTSIDE BACK PAIN. ENMANUEL SOTON, RN
[2020-05-20] MEDS ORDERED: TRAMADOL HCL50 MG PO (14:40)
[2020-05-20] MEDS ORDERED: AZO CRANBERRY1 EACH PO (14:41)
[2020-05-20] MEDS ORDERED: ALLOPURINOL100 MG PO (14:41)
--- NOTE | 2020-05-20 15:30 | NUR ---
CALL PLACED TO DR. GROVE ADMSSION ORDERES RECEIVED.
[2020-05-20 16:00] VITALS: BP 101/52
--- NOTE | 2020-05-20 17:42 | NUR ---
RECEIVED CALL FROM INDU RANGEL, ADVISED PATIENT HAS BEENACCEPTED TO GENERATIONS WITH DIAGONIS OF BIPOLAR UNSPECIFIED, SHE WILL GO IN ROOM 308 B WITH DUAL DIAGNOSIS ORIGINAL PINK SLIP MUST GO WITH PATIENT, ADVISED DR. ANGEL.
[2020-05-20 20:00] VITALS: BP 114/89
--- NOTE | 2020-05-20 20:37 | NUR ---
24 HR chart check completed.
--- NOTE | 2020-05-20 21:09 | NUR ---
ULTRAM GIVEN PER ORDER FOR BACK PAIN RATED "6-7" SEE MAR.
--- NOTE | 2020-05-20 22:05 | NUR ---
PER PATIENT ULTRAM EFFECTIVE.
--- NOTE | 2020-05-20 22:09 | NUR ---
DILAUDID GIVEN PER ORDER FOR LOWER ABD PAIN RATED "7-8" SEE MAR.
[2020-05-21] VITALS: BP 145/71
--- NOTE | 2020-05-21 06:48 | NUR ---
PATIENT WANTED BLOOD SUGAR CHECKED BEFORE SHE WAS ABLE TO ORDER BREAKFAST.
--- NOTE | 2020-05-21 07:00 | NUR ---
ARRIVED ON SHIFT, RECEIVED REPORT FROM OFF GOING NURSE, ASUUMED CARE OF PATIENT.
--- NOTE | 2020-05-21 07:30 | NUR ---
INTRODUCED SELF TO PATIENT, BED IN LOW POSITION, WHEEL LOCKS ENGAGED, SIDE RAILS UP X 2 FOR TURNING AND REPOSITIONING, BED ALARM ON, NO NEEDS VOICE AT THIS TIME, WHITE BOARD UPDATED.
[2020-05-21 08:00] VITALS: BP 117/62
--- NOTE | 2020-05-21 08:26 | NUR ---
Shift chart check completed.
--- NOTE | 2020-05-21 09:32 | NUR ---
CALL PLACED TO DR. GROVE ORDER RECEIVED FOR COLACE 100MG BID
--- NOTE | 2020-05-21 10:05 | NUR ---
Manager Grocery in to talk to patient. Patient states lives at [facility] with caregivers. There are 0 steps in the home. Physician: [facility]: facility Home health services: [facility] Patient's level of ADLs: MODERATE ASSIST Patient has working utilities: yes DME: cane/walker Follow-up physician's appointment after d/c: Will be made by daughter Does patient want to access PORTAL?: no Discharge plan In to see patient, she is displaying some confusion however she did state that she lives at [facility] and has been to [facility] in the past, she doesn't want to go back there. Dr. Scanlon put a SNF order in so I contacted her and explained patients are only getting short therapy in their rooms during quarantine and she said she wants her to go to [facility] because she is confused and can't care for herself. She asked me to speak with her daughter. Contacted daughter Jossie. She stated she understands that patient will be in 14 day quarantine if she goes to [facility] but patient is more confused than normal possibly to a UTI and she would want her placed there so she couldn't "wonder out" and would be safer. However daughter stated she is unsure of what she wants to do right now, she would rather wait to make the decision on Saturday after therapy sees the patient and see if she clears up at all with the ABX. . KY ARROYO
[2020-05-21 12:00] VITALS: BP 154/71
--- NOTE | 2020-05-21 12:53 | NUR ---
PATIENT C/O BACK PAIN MEDICATED WITH ULTRAM ORDERED PRN.
--- NOTE | 2020-05-21 13:50 | NUR ---
PATIENT REPORTS MINIMAL RELIEF FROM ULTRAM GIVEN X 1 HOUR AGO, REPOSITIONED FOR COMFORT.
[2020-05-21 16:00] VITALS: BP 136/78
--- NOTE | 2020-05-21 16:59 | NUR ---
IV attempt in LAC and right wrist. both attempts unsuccessful. no s/s of infiltration.
--- NOTE | 2020-05-21 18:31 | NUR ---
PATIENT RESTLESS AND AGGITATED MEDICATED WITH XANAX ORDERED PRN.
[2020-05-21 20:00] VITALS: BP 125/60
--- NOTE | 2020-05-21 20:30 | NUR ---
ULTRAM GIVEN PER ORDER FOR BACK PAIN. SEE MAR.
--- NOTE | 2020-05-21 20:37 | NUR ---
PATIENT TALKING ABOUT THE KIDS WHERE ARE THEY GOING TO STAY. EXPLAINED TO PATIENT SHE IS IN HOSPITAL AND SHE DID NOT BELIEVE SHE HAS BEEN HERE. WANTING TO KNOW HOW SHE IS GOING TO GO HOME THAT SHE NEEDED TO GO HOME AND GET HER MEDICINE. REORIENTING PATIENT SEVERAL TIMES THAT SHE IS IN HOSPITAL AND THAT THIS RN WILL BE TAKING CARE OF HER NEEDS AND GETTING HER MEDICATIONS TO HER.
--- NOTE | 2020-05-21 20:49 | NUR ---
CONTINUE TO RE ORIENT PATIENT. PATIENT WANTED TO KNOW IF PIZZA WAS GONE AND IF THIS RN WAS GOING TO TAKE THE KIDS HOME.
--- NOTE | 2020-05-21 22:05 | NUR ---
CALLED DR. GROVE AND NOTIFIED HER OF PT. WANTING IV OUT AND CLIMBING OUT OF BED CONFUSED WANTING TO GO HOME. C/O NAUSEA. ORDERS RECEIVED.
--- NOTE | 2020-05-21 22:39 | NUR ---
UNWILLING TO TAKE RISPERDAL AT THIS TIME D/T NAUSEA. ZOFRAN WAS GIVEN AND WILL MONITOR NAUSEA AND TRY AGAIN WITH RISPERDAL.
--- NOTE | 2020-05-21 23:15 | NUR ---
ZOFRAN EFFECTIVE PATIENT IS SLEEPING. NO DISTRESS NOTED.
--- NOTE | 2020-05-22 02:49 | NUR ---
SLEEPING. NO ACUTE DISTRESS NOTED.
--- NOTE | 2020-05-22 02:52 | NUR ---
24 HR chart check completed.
--- NOTE | 2020-05-22 03:50 | NUR ---
PATIENT PULLED IV OUT. BATH GIVEN AND BEDLINENS CHANGED IV started left forearm with #22 angiocath after 1st attempts. The IV site was prepped with Chloraprep. Heparin lock attached. IV solution 0.9ns infusing at 70 cc/hr. Sterile dressing applied. Patient tolerated precedure well. Procedure performed according to [facility] policy & procedure. ENEDINA ZHOU
[2020-05-22 06:18] LABS: BASO % 0.3 % (0.0-1.0); EOS # 0.1 10*3/uL (0.0-0.4); EOS % 1.2 % (1.0-4.0); HEMATOCRIT 36.2 % (37.0-47.0); LYMPH # 1.4 10*3/uL (1.3-4.4); LYMPH % 21.1 % (27.0-41.0); MEAN CELL VOLUME 97.8 fl (81.0-99.0); MEAN CORPUSCULAR HGB 30.5 pg (27.0-31.0); MEAN CORPUSCULAR HGB CONC 31.2 g/dl (33.0-37.0); MEAN PLATELET VOLUME 10.7 fl (9.6-12.3); MONO # 0.5 10*3/uL (0.1-1.0); MONO % 7.3 % (3.0-9.0); NEUT # 4.8 10*3/uL (2.3-7.9); NEUT % 69.8 % (47.0-73.0); PLATELET COUNT AUTOMATED 147 10*3/uL (130-400); RED CELL DISTRI WIDTH 13.9 % (0-14.5); WHITE BLOOD COUNT 6.8 10*3/uL (4.8-10.8)
[2020-05-22 06:33] LABS: BUN 16 mg/dl (7-24); CHLORIDE 113 mmol/L (98-107); CREATININE 0.88 mg/dL (0.55-1.02); SODIUM 143 mmol/L (136-145)
--- NOTE | 2020-05-22 07:00 | NUR ---
ARRIVED ON SHIFT, REPORT RECEIVED FROM OFFGOING NURSE, ASSUMED CARE OF PATIENT.
--- NOTE | 2020-05-22 07:40 | NUR ---
INTRODUCED SELF TO PATIENT BED IN LOW POSITION, WHEEL LOCKS ENGAGED, CALL LIGHTS WITHIN REACH, BED ALARM ON, REORIENTED TO PLACE AND TIME, SIDE RAILS UP X 2 FOR TURNING AND REPOSITIONING, NO NEEDS VOICED AT THIS TIME WHITE BOARD UPDATED, DR. GROVE HERE TO SEE PATIENT, ADVISED OF POSSITIVE URINE CULTURE OF VRE.
--- NOTE | 2020-05-22 07:56 | NUR ---
Shift chart check completed.
[2020-05-22 08:00] VITALS: BP 112/84
[2020-05-22 12:00] VITALS: BP 117/83
--- NOTE | 2020-05-22 14:08 | NUR ---
CALL PLACED TO DR. GROVE PATIENT C/O OF PAIN AND ULTRAM HAS BEEN DISCONTINUED, ORDERE RECEIVED FOR TYLENOL 605 Q 4 HOURS.
--- NOTE | 2020-05-22 14:34 | NUR ---
PATIENT C/O BACK PAIN MEDICATED WITH TYLENOL ORDERED PRN.
[2020-05-22 16:00] VITALS: BP 116/45
[2020-05-22 20:00] VITALS: BP 97/60
--- NOTE | 2020-05-22 21:04 | NUR ---
PT RESTING IN BED WITH EYES CLOSED. AWAKENS EASILY. RESP-EASY AND REGULAR. PT TOLERATED ROUTINE MED WITH APPLESAUCE. MEDICATED WITH XANAX PO FOR ANXIETY. PT LITTLE RESTLESS IN BED. CALL LIGHT IN REACH. BED ALARM ON. SEE EMAR.
--- NOTE | 2020-05-22 22:00 | NUR ---
SLEEPING IN BED, RESP-EASY AND REGULAR. MEDICATION SEEMS TO BE EFFECTIVE. CALL LIGHT IN REACH. BED ALARM ON.
--- NOTE | 2020-05-22 23:00 | NUR ---
ASSUMED CARE OF PATIENT AT THIS TIME. PATIENT RESTING IN BED. VOICES NO CONCERNS AT THIS TIME. NO S/S OF DISCOMFORT NOTED. ASSESSMENT COMPLETE. RESPS EASY AND REGULAR. CALL LIGHT WITHIN REACH.
[2020-05-23] VITALS: BP 100/52
--- NOTE | 2020-05-23 04:32 | NUR ---
PATIENT MEDICATED WITH PRN TYLENOL AT THIS TIME FOR CO BACK PAIN. WILL ASSESS EFFECTIVNESS. CALL LIGHT IN REACH.
--- NOTE | 2020-05-23 05:32 | NUR ---
PATIENT SLEEPING, RESPS EASY AND REGULAR. TYLENOL APPEARS TO BE EFFECTIVE.
--- NOTE | 2020-05-23 07:00 | NUR ---
ARRIVED ON SHIFT, REPORT RECEIVED FROM OFFGOING NURSE, ASSUMED CARE OF PATIENT.
--- NOTE | 2020-05-23 07:30 | NUR ---
INTRODUCED SELF TO PATIENT, BED IN LOW POSITION, WHEEL LOCKS ENGAED SIDE RAILS UP X 3 PER PATIENT REQUEST, BED ALARM ON, CALL LIGHT WITHIN REACH, NO NEEDS VOICED AT THIS TIME, WHITE BOARD UPDATED.
--- NOTE | 2020-05-23 07:57 | NUR ---
Occupational therapy order and nursing screen received. Will follow up with patient for completion of an OT evaluation. Thank you. Stephanie Garcia, OTR/L
[2020-05-23 08:00] VITALS: BP 112/67
--- NOTE | 2020-05-23 08:56 | NUR ---
PHYSICAL THERAPY Screen and PT eval received will follow thank you Khadijah Fulton PT
--- NOTE | 2020-05-23 10:31 | NUR ---
Attempted to reach daughter, Jossie, regarding discharge planning with no success. Left voicemail. Awaiting return call.
[2020-05-23 12:00] VITALS: BP 116/75
--- NOTE | 2020-05-23 13:21 | NUR ---
Received return call from daughter, Jossie. Discussed discharge planning to [facility] with therapy 5 days a week vs [facility]. [facility] and [facility] before making a decision. Awaiting return call.
--- NOTE | 2020-05-23 14:18 | NUR ---
Spoke to Dr. Scanlon regarding any physical therapy restrictions as PT was questioning. No restrictions. Therapy notified.
--- NOTE | 2020-05-23 14:24 | NUR ---
Occupational Therapy evaluation completed on five with full evaluation to follow. Recommend occupational therapy per plan of care and SNF upon discharge. Thank you for this referral. Stephanie Garcia OTR/L
--- NOTE | 2020-05-23 14:31 | NUR ---
Received call from daughter, Jossie. She states she spoke to her mom's nurse and Patricia at [facility] and she would like her mother to go to [facility] [place] for therapy. granite worker notified.
--- NOTE | 2020-05-23 14:38 | NUR ---
PRECERT AND [place] HENS IS REQUIRED FOR ADMISSION TO [facility]. WILL NEED PT/OT EVALS TO COMPLETE REFERRAL.
--- NOTE | 2020-05-23 15:34 | NUR ---
PHYSICAL THERAPY Physical Therapy evaluation completed on 5th floor with full evaluation to follow. Recommend physical therapy per plan of care and SNF upon discharge. Thank you for this referral. Khadijah Fulton PT
[2020-05-23 16:00] VITALS: BP 146/61
--- NOTE | 2020-05-23 17:52 | NUR ---
Shift chart check completed.
[2020-05-23 20:00] VITALS: BP 152/64
--- NOTE | 2020-05-23 20:15 | NUR ---
PT RESTING IN BED, REPOSITIONED SELF IN BED. PT ANXIOUS AT THIS TIME. TOLERATED ROUTINE MED WITH NO PROBLEM. MEDICATED WITH XANAX PO PER PRN ORDER, SEE EMAR FOR ANXIETY. CALL LIGHT IN REACH. BED ALARM ON.
--- NOTE | 2020-05-23 22:45 | NUR ---
RESTING IN BED WITH EYES CLOSED. RESP-EASY AND REGULAR. CALL LIGHT IN REACH. BED ALARM ON.
[2020-05-24] VITALS: BP 130/60
--- NOTE | 2020-05-24 00:30 | NUR ---
PT ASSISTED TO BATHROOM WITH WALKER AND BACK TO BED. NO C/O AT THIS TIME. CALL LIGHT IN REACH. BED ALARM ON. SEE SHIFT ASSESSMENT.
--- NOTE | 2020-05-24 04:00 | NUR ---
RESTING IN BED WITH EYES CLOSED. RESP-EASY AND REGULAR. CALL LIGHT IN REACH. BED ALARM ON.
--- NOTE | 2020-05-24 05:30 | NUR ---
PT ASSISTED TO BATHROOM AND BACK TO BED. PT HAD BM. BSG-73, SEE EMAR. NO C/O AT THIS TIME. CALL LIGHT IN REACH. BED ALARM ON.
--- NOTE | 2020-05-24 07:00 | NUR ---
ARRIVED ON SHIFT, REPORT RECEIVED FROM OFFGOING NURSE, ASSUMED CARE OF PATIENT.
--- NOTE | 2020-05-24 07:10 | NUR ---
Shift chart check completed.
--- NOTE | 2020-05-24 07:24 | NUR ---
INTRODUCED SELF TO PATIENT, BED IN LOW POSITION WITH WHEEL LOCKS ENGAGED, SIDE RAILS UP X 3 PER PATIENT REQUEST, BED ALARM APRON WORKER LIGHT WITHIN REACH NO NEEDS VOICED AT THIS TIME, WHITE BOARD UPDATED.
--- NOTE | 2020-05-24 07:32 | NUR ---
Discussed discharge planning with Dr. Scanlon. Informed patient's daughter agreeable to [facility]. Patient will need a COVID result and a precert. worker's compensation claims examiner following.
--- NOTE | 2020-05-24 07:35 | NUR ---
PRECERT AND [place] PASRR ARE REQUIRED FOR ADMISSION TO [facility]. CONTACT ACID PLANT OPERATOR FAXED CLINICAL UPDATES TO [facility].
[2020-05-24 08:00] VITALS: BP 147/67
--- NOTE | 2020-05-24 09:50 | NUR ---
PHYSICAL THERAPY Patient seen this am 1;1 for therapy visit and had just returned to bed upon therapist arrival. Patient identified by name / and was joined by OT learning and development assistant for observation this session. Patient reports mild mid Thoracic pain which she could not rate on 0-10 pain scale due to bouts of increased confusion. Patient needed multiple v/c's to complete all therapy task safely and transfers supine to sit EOB with MIN A. Patient completed sit to stand transfer, CGA, use of wh walker standing support and ambulated 15'x 1 bathroom, CGA. Patient ambulated additional 25'x 1, wh walker, CGA, demonstrating Kyphotic standing posture, decreased stride, and unsteady during all 90/180 turns. Patient returned to supine in bed and remained with call light, tray table and bed alarm. Will continue per POC as tolerated, total treatment time 16 minutes. Ritesh Mondragon, CONDUCTOR/ENGINEER
--- NOTE | 2020-05-24 10:10 | NUR ---
OT NOTE Pt was seen this A.M. 1:1 for 15 minute OT session. Upon arrival pt was supine in bed. Pt identified by name and and had complaints of back pain which she was unable to rate on 0-10 pain scale. Pt was educated on log roll technique for back protection. Pt transferred supine to sit EOB with Jaxon for assist with UB with fair carry over of log roll technique. While sitting EOB pt donned B socks with SBA while bringing her leg up to bed level to complete. Sit to stand completed from bed level with CGA and use of w/w for UE support. Functional mobility completed to the bathroom with CGA and use of w/w. Throughout tight turns pt had LOB due to poor safety and poor walker management requiring Jaxon to correct LOB. Educated pt on walker safety however pt presented with poor safety. Pt transferred on/off standard commode with Jaxon due to low surface. Functional mobility completed back to the EOB where she transferred sit to supine with Jaxon. There she was left with call light in hand, tray table in place, and bed alarm activated for safety. Continue with rec D/C plan to SNF. POP Leger/Zachery
[2020-05-24 12:00] VITALS: BP 152/71
[2020-05-24 16:00] VITALS: BP 160/72
--- NOTE | 2020-05-24 17:58 | NUR ---
MEDICATED WITH TYLENOL FOR BACK PAIN, UNABLE TO RATE.
--- NOTE | 2020-05-24 18:58 | NUR ---
TYLENOL EFFECTIVE, EVIDENCED BY PATIENT RESTING QUIETLY.
[2020-05-24 20:00] VITALS: BP 175/75
--- NOTE | 2020-05-24 21:00 | NUR ---
ASSISTED UP AND CLEANED UP FOR INCONTINENT FOR BOWEL. BED ALARM ON. CALL LIGHT IN REACH.
--- NOTE | 2020-05-24 21:30 | NUR ---
PT TOLERATED ROUTINE MED WITH NO PROBLEM. PT CONFUSED ON AND OFF, REORIENTED, ANXIOUS. MEDICATED WITH XANAX PO PER PRN ORDER, SEE EMAR. CALL LIGHT IN REACH. BED ALARM ON.
--- NOTE | 2020-05-24 22:20 | NUR ---
PT RESTING IN BED WITH EYES CLOSED. RESP-EASY AND REGULAR. MEDICATION SEEMS TO BE EFFECTIVE. CALL LIGHT IN REACH. BED ALARM ON.
[2020-05-25] VITALS: BP 150/72
--- NOTE | 2020-05-25 | NUR ---
RESTING IN BED WITH EYES CLOSED. RESP-EASY AND REGULAR. CALL LIGHT IN REACH. BED ALARM ON.
--- NOTE | 2020-05-25 03:55 | NUR ---
24 HR chart check completed.
--- NOTE | 2020-05-25 06:00 | NUR ---
PT PULLED IV OUT, PT BATHED AND CLEANED UP IN BED. CALL LIGHT IN REACH. BED ALARM ON.
--- NOTE | 2020-05-25 06:36 | NUR ---
PT RESTING IN BED ON LEFT SIDE. BSG-185. SKIN W/D. CALL LIGHT IN REACH.
[2020-05-25 08:00] VITALS: BP 152/70
--- NOTE | 2020-05-25 08:05 | NUR ---
PRECERT AND [place] PAS[place] HAVE BEEN OBTAINED. PER [place]AN PATIENT CAN ADMIT TO [facility] WITH COVID RESULTS PENDING. SALES OPERATIONS CONSULTANT NOTIFIED ENGINEERING DESIGNER JULIAN.
--- NOTE | 2020-05-25 08:05 | NUR ---
Notified Dr. Scanlon patient can be discharged to [facility] when medically stable as precert has been obtained and [facility] will take her with a pending COVID.
--- NOTE | 2020-05-25 08:30 | NUR ---
Patient resting, confusion noted. No c/o discomfort. Respirations easy and regular. Vital signs stable. No overt distress. Isolation precautions maintained. EMILY MIRANDA R
[2020-05-25] MEDS ORDERED: LINEZOLID600 MG PO (08:33)
[2020-05-25] MEDS ORDERED: RIVASTIGMINE T1.5 M1 PO (08:33)
[2020-05-25] MEDS ORDERED: RISPERIDONE0.5 MG PO (08:33)
--- NOTE | 2020-05-25 10:51 | NUR ---
[employer] NOTIFIED OF PATIENT DISCHARGE. [employer] SPOKE WITH JOÃO BAEZA. [employer] SPOKE WITH [facility] AND ARRANGED FOR A 12:30PM TRANSPORT. [employer] NOTIFIED NINA TORRES, PATIENTS DAUGHTER MAREK, AND SELVIN-NILDA OF TRANSPORT TIME. [employer] WILL FAX DISCHARGE ORDERS.
--- NOTE | 2020-05-25 11:45 | NUR ---
REPORT CALLED TO DANA GILLIS
--- NOTE | 2020-05-25 11:48 | NUR ---
OT NOTE Pt was seen this A.M. 1:1 for 15 minute OT session. Upon arrival pt was supine in bed. Pt identified by name and and had complaints of "little" back pain. Pt transferred supine to sit EOB with Jaxon for assist with UB and following back protection. Sit to stand completed from bed level with CGA and use of w/w for UE support. Functional mobility completed to the bathroom with CGA and use of w/w. There she transferred on to the standard commode with CGA and off with Jaxon due to low surface. Functional mobility completed back to the EOB where she transferred sit to supine with CGA. There she was left with call light in hand, tray table in place, and bed alarm activated for safety. continue with rec D/C plan to SNF. POP Leger/Zachery
--- NOTE | 2020-05-25 13:01 | NUR ---
Discharge instructions reviewed with patient/family. Patient receptive and verbalizes understanding. Follow-up care arranged. Written instructions given to patient/family. EMILY MIRANDA
--- NOTE | 2020-05-26 08:04 | NUR ---
PHYSICAL THERAPY CO-SIGN I approve of the Physical Therapy notes written above. Khadijah Fulton PT
--- NOTE | 2020-05-26 11:55 | NUR ---
OCCUPATIONAL THERAPY CO-SIGN I approve of the Occupational Therapy notes written above. JOSEMANUEL DURÁN, OTR/L
== END 2020-05-25 13:12 | disposition other institution (70) | DRG 682 ==
LOC: ED 11:08 → EDHOLD 13:08 → 5E 13:08
PROVIDERS: Emergency Medicine; ADMIT Internal Medicine
DX: N17.0 Acute kidney failure with tubular necrosis (principal); G93.41 Metabolic encephalopathy; N39.0 Urinary tract infection, site not specified; Z16.21 Resistance to vancomycin; I48.21 Permanent atrial fibrillation; I13.0 Hypertensive heart and chronic kidney disease with heart failure and stage 1 through stage 4 chronic kidney disease, or unspecified chronic kidney disease; B95.2 Enterococcus as the cause of diseases classified elsewhere; F01.50 Vascular dementia, unspecified severity, without behavioral disturbance, psychotic disturbance, mood disturbance, and anxiety; J44.9 Chronic obstructive pulmonary disease, unspecified; R62.7 Adult failure to thrive; F41.1 Generalized anxiety disorder; E03.9 Hypothyroidism, unspecified; Z66 Do not resuscitate; Z51.5 Encounter for palliative care; I50.9 Heart failure, unspecified; N18.2 Chronic kidney disease, stage 2 (mild); E11.22 Type 2 diabetes mellitus with diabetic chronic kidney disease; M25.531 Pain in right wrist; Z03.818 Encounter for observation for suspected exposure to other biological agents ruled out; Z87.81 Personal history of (healed) traumatic fracture; Z87.440 Personal history of urinary (tract) infections

== ENCOUNTER 2020-11-27 10:05 | Emergency (ER) | payer OTHER ==
[~2020-11-27] VITALS: Ht 154.9 cm; Wt 75.7 kg
[~2020-11-27 10:05] MED LIST changes: +ALLOPURINOL100 MG PO; +AZO CRANBERRY1 EACH PO; +CIPROFLOXACIN500 M4 PO; +RISPERIDONE0.5 MG PO; +RIVASTIGMINE T1.5 M1 PO; +TRAMADOL HCL50 MG PO
[2020-11-27 10:51] LABS: BASO % 0.4 % (0.0-1.0); EOS # 0.1 10*3/uL (0.0-0.4); EOS % 1.3 % (1.0-4.0); HEMATOCRIT 37.8 % (37.0-47.0); LYMPH # 1.2 10*3/uL (1.3-4.4); LYMPH % 25.3 % (27.0-41.0); MEAN CELL VOLUME 96.4 fl (81.0-99.0); MEAN CORPUSCULAR HGB 31.1 pg (27.0-31.0); MEAN CORPUSCULAR HGB CONC 32.3 g/dl (33.0-37.0); MEAN PLATELET VOLUME 10.6 fl (9.6-12.3); MONO # 0.3 10*3/uL (0.1-1.0); MONO % 5.7 % (3.0-9.0); NEUT # 3.2 10*3/uL (2.3-7.9); NEUT % 66.9 % (47.0-73.0); PLATELET COUNT AUTOMATED 126 10*3/uL (130-400); RED BLOOD COUNT 3.92 10*6/uL (4.10-5.10); RED CELL DISTRI WIDTH 14.8 % (0-14.5); WHITE BLOOD COUNT 4.8 10*3/uL (4.8-10.8)
[2020-11-27 11:03] LABS: ACT PARTIAL THROMBO TIME 27.9 SECONDS (20.0-32.1); INTERNATIONAL NORM RATIO 1.5 (2.0-3.5)
[2020-11-27 11:07] LABS: ALBUMIN 3.3 gm/dl (3.1-4.5); ALKALINE PHOSPHATASE 58 U/L (45-117); BUN 17 mg/dl (7-24); CHLORIDE 111 mmol/L (98-107); CREATININE 1.05 mg/dL (0.55-1.02); LIPASE 98 U/L (73-393); POTASSIUM 4.2 mmol/L (3.5-5.1); SGOT/AST 13 IU/L (3-35); SGPT/ALT 16 U/L (12-78); SODIUM 141 mmol/L (136-145); TOTAL PROTEIN 7.4 gm/dL (6.4-8.2)
[2020-11-27 11:08] LABS: TROPONIN I < 0.015 ng/ml (<0.045)
[2020-11-27 11:39] VITALS: BP 147/82
[2020-11-27 12:31] LABS: BILIRUBIN Negative (Negative); BLOOD Negative (Negative); CLARITY Clear (Clear); COLOR Yellow (Yellow); GLUCOSE Negative (Negative); KETONE Negative (Negative); LEUKO ESTERASE Negative (Negative); NITRITE Negative (Negative); PH 7.5 (4.5-8.0); UROBILINOGEN 0.2 E.U./dl (0.0-1.0)
[2020-11-27 12:41] LABS: WBC 0-2 wbc/hpf (0-5)
== END 2020-11-27 13:32 | disposition home or self-care (01) ==
LOC: ED 10:05
PROVIDERS: Physician Assistant
DX: R42 Dizziness and giddiness (principal); I48.91 Unspecified atrial fibrillation; J44.9 Chronic obstructive pulmonary disease, unspecified; F32.9 Major depressive disorder, single episode, unspecified; E11.22 Type 2 diabetes mellitus with diabetic chronic kidney disease; I13.0 Hypertensive heart and chronic kidney disease with heart failure and stage 1 through stage 4 chronic kidney disease, or unspecified chronic kidney disease; N18.9 Chronic kidney disease, unspecified; I50.9 Heart failure, unspecified; M81.0 Age-related osteoporosis without current pathological fracture; E78.00 Pure hypercholesterolemia, unspecified; Z79.899 Other long term (current) drug therapy; Z90.711 Acquired absence of uterus with remaining cervical stump; Z86.14 Personal history of Methicillin resistant Staphylococcus aureus infection; Z86.711 Personal history of pulmonary embolism

== ENCOUNTER → 2021-01-12 | Outpatient (CLI) | payer OTHER ==
[2021-01-12 13:57] LABS: BASO % 0.6 % (0.0-1.0); EOS # 0.1 10*3/uL (0.0-0.4); EOS % 1.7 % (1.0-4.0); HEMATOCRIT 39.2 % (37.0-47.0); LYMPH % 29.3 % (27.0-41.0); MEAN CELL VOLUME 97.3 fl (81.0-99.0); MEAN CORPUSCULAR HGB 31.5 pg (27.0-31.0); MEAN CORPUSCULAR HGB CONC 32.4 g/dl (33.0-37.0); MEAN PLATELET VOLUME 11.1 fl (9.6-12.3); MONO # 0.5 10*3/uL (0.1-1.0); MONO % 7.7 % (3.0-9.0); NEUT # 4.1 10*3/uL (2.3-7.9); NEUT % 59.7 % (47.0-73.0); PLATELET COUNT AUTOMATED 163 10*3/uL (130-400); RED BLOOD COUNT 4.03 10*6/uL (4.10-5.10); RED CELL DISTRI WIDTH 13.7 % (0-14.5); WHITE BLOOD COUNT 6.9 10*3/uL (4.8-10.8)
[2021-01-12 14:21] LABS: ALBUMIN 3.6 gm/dl (3.1-4.5); CREATININE 1.37 mg/dL (0.55-1.02); POTASSIUM 4.1 mmol/L (3.5-5.1); TOTAL PROTEIN 7.9 gm/dL (6.4-8.2)
[2021-01-12 14:22] LABS: FREE T4 1.24 ng/dl (0.76-1.46)
[2021-01-12 14:27] LABS: THYROID STIM HORMONE (HS) 0.414 uIU/ml (0.358-4.75)
[2021-01-12 16:11] LABS: VITAMIN D, 25-HYDROXY 37.3 ng/mL (30-100)
== END | disposition home or self-care (01) ==
LOC: LAB 13:10 → US 14:00
PROVIDERS: ATTEND Internal Medicine
DX: I65.23 Occlusion and stenosis of bilateral carotid arteries (principal); E03.9 Hypothyroidism, unspecified; I10 Essential (primary) hypertension; R42 Dizziness and giddiness; D51.0 Vitamin B12 deficiency anemia due to intrinsic factor deficiency; E11.9 Type 2 diabetes mellitus without complications; Z00.00 Encounter for general adult medical examination without abnormal findings

== ENCOUNTER → 2021-02-06 | Outpatient (CLI) | payer OTHER | LOC: US 00:20 | PROVIDERS: ATTEND Internal Medicine | DX: R94.4 Abnormal results of kidney function studies (principal) ==

== ENCOUNTER 2022-08-15 18:20 | Emergency (ER) | payer OTHER ==
[~2022-08-15] VITALS: Ht 167.6 cm; Wt 72.6 kg
[~2022-08-15 18:20] MED LIST changes: +BUSPIRONE10 MG PO; +CEFUROXIME AXE250 MG PO; +KLOR-CON 88 ME1 PO; +LEVOTHYROXINE100 MC1 PO; +ZINC50 M4 PO
[2022-08-15 18:28] VITALS: BP 118/64
== END 2022-08-15 20:45 | disposition home or self-care (01) ==
LOC: ED 18:20
DX: S20.211A Contusion of right front wall of thorax, initial encounter (principal); Z79.899 Other long term (current) drug therapy; Z79.2 Long term (current) use of antibiotics; Z90.710 Acquired absence of both cervix and uterus; W01.0XXA Fall on same level from slipping, tripping and stumbling without subsequent striking against object, initial encounter; Y93.89 Activity, other specified; Y92.89 Other specified places as the place of occurrence of the external cause; Y99.8 Other external cause status

== ENCOUNTER → 2022-08-20 | Outpatient (CLI) | payer OTHER | END | disposition home or self-care (01) | LOC: ORTHO 02:31 | PROVIDERS: ATTEND Orthopaedic Surgery | DX: M19.031 Primary osteoarthritis, right wrist (principal); M85.841 Other specified disorders of bone density and structure, right hand; I70.8 Atherosclerosis of other arteries ==

== ENCOUNTER 2022-12-22 16:57 | Emergency (ER) | payer MEDICAID ==
[~2022-12-22] VITALS: Wt 70.8 kg
[2022-12-22 17:23] LABS: BASO % 0.7 % (0.0-1.0); EOS # 0.1 10*3/uL (0.0-0.4); HEMATOCRIT 35.1 % (37.0-47.0); LYMPH # 1.9 10*3/uL (1.3-4.4); LYMPH % 34.9 % (27.0-41.0); MEAN CELL VOLUME 100.9 fl (81.0-99.0); MEAN CORPUSCULAR HGB 31.9 pg (27.0-31.0); MEAN CORPUSCULAR HGB CONC 31.6 g/dl (33.0-37.0); MEAN PLATELET VOLUME 10.8 fl (9.6-12.3); MONO # 0.5 10*3/uL (0.1-1.0); MONO % 8.8 % (3.0-9.0); NEUT # 2.9 10*3/uL (2.3-7.9); PLATELET COUNT AUTOMATED 133 10*3/uL (130-400); RED BLOOD COUNT 3.48 10*6/uL (4.10-5.10); RED CELL DISTRI WIDTH 13.4 % (0-14.5); WHITE BLOOD COUNT 5.4 10*3/uL (4.8-10.8)
[2022-12-22 17:32] LABS: BILIRUBIN Negative (Negative); BLOOD Negative (Negative); CLARITY Clear (Clear); COLOR Yellow (Yellow); GLUCOSE Negative (Negative); KETONE Negative (Negative); LEUKO ESTERASE Negative (Negative); NITRITE Negative (Negative); PH 6.5 (4.5-8.0); SPECIFIC GRAVITY 1.015 (1.001-1.030); UROBILINOGEN 0.2 E.U./dl (0.0-1.0)
[2022-12-22 17:36] LABS: POTASSIUM 4.4 mmol/L (3.4-5.1); TOTAL PROTEIN 7.2 gm/dL (6.0-8.0)
[2022-12-22 17:59] LABS: EPITHELIAL CELLS 0-2; RBC 0-2 rbc/hpf (0-2); WBC 0-2 wbc/hpf (0-5)
== END 2022-12-22 20:52 ==
LOC: ED 16:57
PROVIDERS: Student in an Organized Health Care Education/Training Program
DX: S09.90XA Unspecified injury of head, initial encounter (principal); E11.9 Type 2 diabetes mellitus without complications; S66.912A Strain of unspecified muscle, fascia and tendon at wrist and hand level, left hand, initial encounter; J44.9 Chronic obstructive pulmonary disease, unspecified; I10 Essential (primary) hypertension; E78.00 Pure hypercholesterolemia, unspecified; I48.91 Unspecified atrial fibrillation; Z90.710 Acquired absence of both cervix and uterus; Z98.890 Other specified postprocedural states; W06.XXXA Fall from bed, initial encounter; Y93.89 Activity, other specified; Y92.129 Unspecified place in nursing home as the place of occurrence of the external cause; Y99.8 Other external cause status

== ENCOUNTER 2023-11-28 15:06 | Emergency (ER) | payer MEDICARE, MEDICAID ==
[2023-11-28 15:21] VITALS: BP 152/75
[2023-11-28 15:40] LABS: BASO # 0.1 10*3/uL (0.0-0.1); EOS # 0.2 10*3/uL (0.0-0.4); EOS % 4.1 % (1.0-4.0); HEMATOCRIT 37.6 % (37.0-47.0); LYMPH # 1.7 10*3/uL (1.3-4.4); LYMPH % 32.7 % (27.0-41.0); MEAN CELL VOLUME 101.1 fl (81.0-99.0); MEAN CORPUSCULAR HGB CONC 31.6 g/dl (33.0-37.0); MEAN PLATELET VOLUME 10.3 fl (9.6-12.3); MONO # 0.5 10*3/uL (0.1-1.0); MONO % 9.7 % (3.0-9.0); NEUT # 2.7 10*3/uL (2.3-7.9); NEUT % 52.3 % (47.0-73.0); PLATELET COUNT AUTOMATED 166 10*3/uL (130-400); RED BLOOD COUNT 3.72 10*6/uL (4.10-5.10); WHITE BLOOD COUNT 5.2 10*3/uL (4.8-10.8)
[2023-11-28 15:50] LABS: ACT PARTIAL THROMBO TIME 28.8 SECONDS (20.0-32.1)
[2023-11-28 15:59] LABS: ALKALINE PHOSPHATASE 59 U/L (46-116); BUN 14 mg/dl (9-23); CHLORIDE 107 mmol/L (98-107); CPK 33 U/L (34-171); ETHYL ALCOHOL 5.7 mg/dl (<3); LIPASE 30 U/L (12-53); POTASSIUM 3.9 mmol/L (3.4-5.1); SGPT/ALT < 7 U/L (5-49); TOTAL PROTEIN 7.3 gm/dL (6.0-8.0)
[2023-11-28] MEDS ORDERED: ACETAMINOPHEN500 M4 PO (16:34)
[2023-11-28] MEDS ORDERED: ARTIFICIAL TEAR1514 OP (16:35)
[2023-11-28] MEDS ORDERED: BIOFREEZE473 ML TP (16:37)
[2023-11-28] MEDS ORDERED: CELEXA10 MG PO (16:46)
[2023-11-28 16:47] LABS: BILIRUBIN Negative (Negative); BLOOD Negative (Negative); CLARITY Clear (Clear); COLOR Yellow (Yellow); GLUCOSE Negative (Negative); KETONE Negative (Negative); LEUKO ESTERASE 1+ (Negative); NITRITE Negative (Negative); PH 6.5 (4.5-8.0)
[2023-11-28] MEDS ORDERED: COLACE100 MG PO (16:47)
[2023-11-28] MEDS ORDERED: DEBROX15 ML OT (16:48)
[2023-11-28] MEDS ORDERED: DULCOLAX10 M1 R (16:50)
[2023-11-28] MEDS ORDERED: IMODIUM A-D2 M2 PO (16:51)
[2023-11-28] MEDS ORDERED: HYDROXYZINE HCL25 MG PO (16:51)
[2023-11-28] MEDS ORDERED: MELATONIN3 MG PO (16:52)
[2023-11-28 16:54] LABS: URINE AMPHETAMINES Negative (1000ng/ml); URINE BARBITURATES Negative (200ng/ml); URINE BENZODIAZEPINES Positive (200ng/ml); URINE CANNABINOIDS (THC) Negative (50ng/ml); URINE COCAINE Negative (300ng/ml); URINE METHADONE Negative (300ng/ml); URINE OPIATES Negative (300ng/ml); URINE PHENCYCLIDINE Negative (25ng/ml)
[2023-11-28] MEDS ORDERED: MILK OF MA400 MG/53 PO (16:54)
[2023-11-28] MEDS ORDERED: READY TO USE E133 ML R (16:54)
[2023-11-28] MEDS ORDERED: MIRALAX119 GM PO (16:55)
[2023-11-28] MEDS ORDERED: GERI-TUSSI100 MG/5 M PO (16:57)
[2023-11-28 16:59] LABS: BACTERIA 1+; RBC 0-2 rbc/hpf (0-2); WBC 16-20 wbc/hpf (0-5)
[2023-11-28] MEDS ORDERED: LEVOTHYROXINE88 MCG PO (16:59)
[2023-11-28] MEDS ORDERED: BUSPIRONE15 MG PO (17:00)
== END 2023-11-28 18:50 ==
LOC: ED 15:06
PROVIDERS: Internal Medicine
DX: R45.1 Restlessness and agitation (principal); R41.82 Altered mental status, unspecified; Z79.899 Other long term (current) drug therapy; Z90.711 Acquired absence of uterus with remaining cervical stump; Z98.890 Other specified postprocedural states

== ENCOUNTER 2024-06-17 23:38 | Inpatient (IN) | payer MEDICARE, MEDICAID ==
[~2024-06-17] VITALS: Ht 162.5 cm; Wt 64.4 kg
[~2024-06-17 23:38] MED LIST changes: +ACETAMINOPHEN500 M4 PO; +ARTIFICIAL TEAR1514 OP; +ATIVAN ORAL C2 MG/ML PO; +ATIVAN2 MG/1 ML IM; +BIOFREEZE473 ML TP; +BUSPIRONE15 MG PO; +CALCITONIN200 UNIT/1 NAS; +CELEXA10 MG PO; +COLACE100 MG PO; +DEBROX15 ML OT; +DEPAKOTE250 MG PO; +DULCOLAX10 M1 R; +EXELON1 EAC1 TD; +GERI-TUSSI100 MG/5 M PO; +HYDROXYZINE HCL25 MG PO; +IMODIUM A-D2 M2 PO; +LEVOTHYROXINE88 MCG PO; +MELATONIN + L-TH3 MG PO; +MELATONIN3 MG PO; +MILK OF MA400 MG/53 PO; +MIRALAX119 GM PO; +POTASSIUM CHLO10 ME4 PO; +READY TO USE E133 ML R
[2024-06-17 23:46] VITALS: BP 151/74
[2024-06-18] MEDS ORDERED: hydrOXYzine pamoate 25 MG CAP PO PRN (00:20)
[2024-06-18] MEDS ORDERED: LASIX20 MG PO (00:28)
[2024-06-18] MEDS ORDERED: DEPAKOTE ER250 MG PO (00:29)
[2024-06-18] MEDS ORDERED: EXELON1 EAC2 TD (00:31)
[2024-06-18] MEDS ORDERED: SALINE NASAL SP44 ML NAS (00:34)
[2024-06-18] MEDS ORDERED: DIVALPROEX (DR) 250 MG TAB PO PRN (00:35)
[2024-06-18] MEDS ORDERED: ACETAMINOPHEN 325 MG TAB PO PRN (00:40)
[2024-06-18] MEDS ORDERED: Magnesium Hydroxide 30 ML UDC PO PRN ×2 (00:40→01:00)
[2024-06-18] MEDS ORDERED: MG-AL HYDROXIDE/SIMETICONE 30 ML UDC PO PRN (00:40)
[2024-06-18] MEDS ORDERED: Menthol/Zinc Oxide 4 GM THIN T PRN (00:45)
[2024-06-18] MEDS ORDERED: Loperamide Hydrochloride 2 MG CAP PO PRN (01:00)
[2024-06-18] MEDS ORDERED: MINERAL OIL 133 ML BOT R PRN (01:00)
[2024-06-18] MEDS ORDERED: GUAIFENESIN 10 ML UDC PO PRN (01:00)
[2024-06-18] MEDS ORDERED: DEXTROSE 10 % IN WATER 250 ML IV PRN (01:10)
[2024-06-18] MEDS ORDERED: Levothyroxine Sodium 88 MCG TAB PO SCH (06:00)
[2024-06-18] MEDS ORDERED: Pantoprazole Sodium 40 MG TAB PO SCH (06:00)
[2024-06-18 07:13] LABS: BASO % 0.7 % (0.0-1.0); EOS # 0.1 10*3/uL (0.0-0.4); EOS % 2.5 % (1.0-4.0); HEMATOCRIT 39.7 % (37.0-47.0); LYMPH # 1.5 10*3/uL (1.3-4.4); LYMPH % 26.4 % (27.0-41.0); MEAN CELL VOLUME 102.1 fl (81.0-99.0); MEAN CORPUSCULAR HGB 32.6 pg (27.0-31.0); MEAN PLATELET VOLUME 10.9 fl (9.6-12.3); MONO # 0.4 10*3/uL (0.1-1.0); MONO % 6.5 % (3.0-9.0); NEUT # 3.5 10*3/uL (2.3-7.9); NEUT % 63.7 % (47.0-73.0); PLATELET COUNT AUTOMATED 141 10*3/uL (130-400); RED BLOOD COUNT 3.89 10*6/uL (4.10-5.10); RED CELL DISTRI WIDTH 12.7 % (0-14.5); WHITE BLOOD COUNT 5.5 10*3/uL (4.8-10.8)
[2024-06-18] MEDS ORDERED: INSULIN LISPRO 1 UNIT/0.01 ML SQ SCH (07:30)
[2024-06-18 07:35] LABS: ALKALINE PHOSPHATASE 53 U/L (46-116); BUN 19 mg/dl (9-23); CHLORIDE 105 mmol/L (98-107); CHOLESTEROL 195 mg/dL (<200); LDL CHOLESTEROL 114 mg/dL (9-159); POTASSIUM 4.1 mmol/L (3.4-5.1); SGPT/ALT 13 U/L (5-49); TOTAL PROTEIN 7.6 gm/dL (6.0-8.0); TRIGLYCERIDES 163 mg/dl (<150)
[2024-06-18 07:38] LABS: VALPROIC ACID (DEPAKENE) < 3.0 ug/ml (50-100)
[2024-06-18 08:01] VITALS: BP 143/58
[2024-06-18] MEDS ORDERED: FUROSEMIDE 20 MG TAB PO SCH (09:00)
[2024-06-18] MEDS ORDERED: RIVASTIGMINE 13.3 MG/24 HR TDM T SCH (09:00)
[2024-06-18] MEDS ORDERED: DIVALPROEX ER 250 MG TAB PO SCH (09:00)
[2024-06-18] MEDS ORDERED: APIXABAN 5 MG TAB PO SCH (10:00)
[2024-06-18] MEDS ORDERED: LORATADINE 10 MG TAB PO SCH (10:00)
[2024-06-18] MEDS ORDERED: Metoprolol Tartrate 25 MG TAB PO SCH ×2 (10:00→22:00)
[2024-06-18] MEDS ORDERED: ALLOPURINOL 100 MG TAB PO SCH (10:00)
[2024-06-18] MEDS ORDERED: CALCITONIN NAS SCH (10:00)
[2024-06-18] MEDS ORDERED: [UNRECOGNIZED DRUG - OTHER] NAS SCH (10:00)
[2024-06-18] MEDS ORDERED: Polyethylene Glycol 3350 17 GM PACKET PO SCH (10:00)
[2024-06-18] MEDS ORDERED: DOCUSATE SODIUM 100 MG CAP PO SCH (10:00)
[2024-06-18 11:15] LABS: VITAMIN D, 25-HYDROXY 38.1 ng/mL (30-100)
[2024-06-18] MEDS ORDERED: DIVALPROEX (DR) 250 MG TAB PO SCH (13:00)
[2024-06-18 14:00] VITALS: BP 143/58
[2024-06-18 20:00] VITALS: BP 138/70
[2024-06-18] MEDS ORDERED: Memantine Hydrochloride 5 MG TAB PO SCH ×2 (21:00)
[2024-06-18] MEDS ORDERED: Mirtazapine 15 MG TAB PO SCH (21:00)
[2024-06-19 07:37] VITALS: BP 151/57
[2024-06-19] MEDS ORDERED: Memantine Hydrochloride 5 MG TAB PO SCH (09:00)
[2024-06-19 20:00] VITALS: BP 108/64
[2024-06-19] MEDS ORDERED: Memantine Hydrochloride 10 MG TAB PO SCH (21:00)
[2024-06-20 07:46] VITALS: BP 140/62
[2024-06-20 19:15] VITALS: BP 140/62
[2024-06-20] MEDS ORDERED: Memantine Hydrochloride 10 MG TAB PO SCH (21:00)
[2024-06-21 08:00] VITALS: BP 139/67
[2024-06-21 19:23] VITALS: BP 108/55
[2024-06-22 08:00] VITALS: BP 129/67
[2024-06-22] MEDS ORDERED: DIVALPROEX SODIUM 125 MG TAB PO SCH (13:00)
[2024-06-22 20:00] VITALS: BP 133/89
[2024-06-23 08:26] VITALS: BP 148/89
[2024-06-23] MEDS ORDERED: DIVALPROEX (DR) 250 MG TAB PO SCH (13:00)
[2024-06-23 20:00] VITALS: BP 114/58
[2024-06-24 20:00] VITALS: BP 100/65
[2024-06-25 06:43] LABS: BASO # 0.1 10*3/uL (0.0-0.1); BASO % 0.9 % (0.0-1.0); EOS # 0.2 10*3/uL (0.0-0.4); EOS % 4.4 % (1.0-4.0); HEMATOCRIT 39.8 % (37.0-47.0); LYMPH # 1.9 10*3/uL (1.3-4.4); LYMPH % 34.1 % (27.0-41.0); MEAN CELL VOLUME 102.3 fl (81.0-99.0); MEAN CORPUSCULAR HGB 32.6 pg (27.0-31.0); MEAN CORPUSCULAR HGB CONC 31.9 g/dl (33.0-37.0); MEAN PLATELET VOLUME 10.8 fl (9.6-12.3); MONO # 0.5 10*3/uL (0.1-1.0); MONO % 8.5 % (3.0-9.0); NEUT # 2.9 10*3/uL (2.3-7.9); NEUT % 51.9 % (47.0-73.0); PLATELET COUNT AUTOMATED 142 10*3/uL (130-400); RED BLOOD COUNT 3.89 10*6/uL (4.10-5.10); RED CELL DISTRI WIDTH 12.7 % (0-14.5); WHITE BLOOD COUNT 5.5 10*3/uL (4.8-10.8)
[2024-06-25 07:47] LABS: ALKALINE PHOSPHATASE 54 U/L (46-116); BUN 23 mg/dl (9-23); CHLORIDE 107 mmol/L (98-107); POTASSIUM 4.5 mmol/L (3.4-5.1); TOTAL PROTEIN 6.6 gm/dL (6.0-8.0)
[2024-06-25 07:48] LABS: SGPT/ALT < 7 U/L (5-49)
[2024-06-25 08:00] VITALS: BP 123/66
[2024-06-25] MEDS ORDERED: RIVASTIGMINE1 EAC2 T (09:54)
[2024-06-25] MEDS ORDERED: MEMANTINE HCL10 MG PO (09:54)
[2024-06-25] MEDS ORDERED: DIVALPROEX SOD250 MG PO (09:54)
[2024-06-25] MEDS ORDERED: MIRTAZAPINE15 M2 PO (09:54)
[2024-06-25] MEDS ORDERED: LOPRESSOR25 MG PO (13:02)
[2024-06-25] MEDS ORDERED: diphenhydrAMINE hydrochloride 50 MG/ML VIAL ONE (14:17)
[2024-06-25] MEDS ORDERED: LORazepam 2 MG/ML VIAL ONE (14:30)
== END 2024-06-25 14:33 | DRG 883 ==
LOC: 3N 23:38
PROVIDERS: Nurse Practitioner; ADMIT Psychiatry & Neurology Psychiatry; ATTEND Psychiatry & Neurology Psychiatry
PROC: GZHZZZZ Group Psychotherapy (ICD-10-PCS; principal; 2024-06-18)
PROC: GZ51ZZZ Individual Psychotherapy, Behavioral (ICD-10-PCS; 2024-06-18)
PROC: GZ56ZZZ Individual Psychotherapy, Supportive (ICD-10-PCS; 2024-06-18)
DX: F63.81 Intermittent explosive disorder (principal); N18.32 Chronic kidney disease, stage 3b; I13.0 Hypertensive heart and chronic kidney disease with heart failure and stage 1 through stage 4 chronic kidney disease, or unspecified chronic kidney disease; F33.9 Major depressive disorder, recurrent, unspecified; F39 Unspecified mood [affective] disorder; I48.91 Unspecified atrial fibrillation; I50.9 Heart failure, unspecified; G30.9 Alzheimer's disease, unspecified; F02.80 Dementia in other diseases classified elsewhere, unspecified severity, without behavioral disturbance, psychotic disturbance, mood disturbance, and anxiety; Z66 Do not resuscitate; J44.9 Chronic obstructive pulmonary disease, unspecified; K21.9 Gastro-esophageal reflux disease without esophagitis; M10.9 Gout, unspecified; M81.0 Age-related osteoporosis without current pathological fracture; E11.22 Type 2 diabetes mellitus with diabetic chronic kidney disease; E11.69 Type 2 diabetes mellitus with other specified complication; Z51.5 Encounter for palliative care